=== PATIENT | female | born 1985 | race Caucasian/White ===

== ENCOUNTER 2020-07-15 18:24 | Emergency (ER) | payer MEDICAID, SELFPAY ==
[2020-07-15 20:00] VITALS: BP 100/67; PULSE 86; RESP 16; TEMP 36.7; O2SAT 99
--- NOTE | 2020-07-15 20:15 | ED.GENADULT ---
HPI - General Adult General Chief complaint: Neck Pain/Injury <MARNIE Pace Last Filed: 07/16/20 01:31> Stated complaint: neck pain <MARNIE Pace Last Filed: 07/16/20 01:31> Time Seen by Provider: 07/15/20 20:10 <MARNIE Pace Last Filed: 07/16/20 01:31> History of Present Illness HPI narrative: patient presents to the ED for right-sided neck pain and stiffness. Patient states she woke up like this. Patient denies any head, neck trauma, fever, chills, photophobia, nausea, vomiting, headache, or blurry vision. <MARNIE Pace Last Filed: 07/16/20 01:31> Related Data Home medications: Previous Rx's Medication Instructions Recorded cyclobenzaprine 10 mg PO TID PRN #15 tab 07/15/20 naproxen 500 mg PO BID PRN #30 tab 07/15/20 <MARNIE Pace Last Filed: 07/16/20 01:31> Allergies/adverse reactions: Allergies Allergy/AdvReac Type Severity Reaction Status Date / Time No Known Allergies Allergy Verified 07/15/20 20:21 <MARNIE Pace Last Filed: 07/16/20 01:31> Review of Systems Review of Systems: Yes all other systems are reviewed and are negative <MARNIE Pace Last Filed: 07/16/20 01:31> Constitutional: Constitutional: Reports no additional constitutional complaints, Denies body ache(s), Denies chills, Denies excessive sweating, Denies fatigue, Denies fever(s), Denies frequent falls, Denies headache(s), Denies malaise and Denies night sweats <MARNIE Pace Last Filed: 07/16/20 01:31> ENT: Denies halitosis, Denies change in voice, Denies headache(s), Denies neck mass, Reports neck pain, Denies sinus pressure, Denies sore throat and Denies throat swelling <MARNIE Pace Last Filed: 07/16/20 01:31> Cardiovascular: Cardiovascular: Reports as per HPI, Denies chest pain, Denies chest pain at rest, Denies chest pain with activity, Denies diaphoresis, Denies lightheadedness and Denies radiating jaw, neck or arm pain <MARNIE Pace Last Filed: 07/16/20:> Respiratory: Respiratory: Reports no additional respiratory complaints, Reports no additional respiratory complaints, Denies change in phlegm color, Denies chest congestion, Denies cough, Denies hemoptysis, Denies excessive phlegm production, Denies pain on inspiration and Denies pain with cough <MARNIE Pace Last Filed: 07/16/20:31> Gastrointestinal: Gastrointestinal: Denies abdominal pain, Denies belching, Denies melena and Denies hematochezia <MARNIE Pace Filed: 07/16/20:> Genitourinary: Genitourinary: Denies change in libido <MARNIE Pace Filed: 07/16/20:> Musculoskeletal: Musculoskeletal: Denies myalgias, Denies atrophy and Reports neck pain <MARNIE Pace Filed: 07/16/20:> Neurologic: Reports system reviewed and no additional complaints, except as documented, Denies behavioral changes, Denies frequent falls and Denies headache(s) <MARNIE Pace Filed: 07/16/20:> Psychiatric: Psychiatric: Reports no additional psychiatric complaints, Reports as per HPI, Denies anxiety, Denies behavioral changes, Denies change in appetite and Denies change in libido <MARNIE Pace Filed: 07/16/20:31> Endocrine: Endocrine: Denies change in libido, Denies excessive sweating and Denies fatigue <MARNIE Pace Last Filed: 07/16/20:> Allergic/Immunologic: Allergic/Immunologic: Denies throat swelling <MARNIE Pace Filed: 07/16/20:> [facility], [facility] Social History Social History: Social History Smoking Status: Never smoker Use of substances other than those prescribed or required for medical reasons: No Advance Directives: No Advance Directives Information Provided: Yes <MARNIE Pcae Filed: 07/16/20:> Physical Exam Vital Signs and I&O and Narrative: Vital Signs and I&O: Vital Signs Temp 98.0 F 07/15/20 20:00 Pulse 86 07/15/20 20:00 Resp 16 07/15/20 20:00 BP 100/67 07/15/20 20:00 Pulse Ox 99 07/15/20 20:00 <MARNIE Pace Last Filed: 07/16/20 01:31> Vital Signs and I&O: Vital Signs Temp 98.0 F 07/15/20 20:00 Pulse 86 07/15/20 20:00 Resp 16 07/15/20 20:00 BP 100/67 07/15/20 20:00 Pulse Ox 99 07/15/20 20:00 <Joon Lomax DO - Last Filed: 07/16/20 02:28> Const: General: cooperative, healthy appearing, comfortable and no acute distress <MARNIE Pace Last Filed: 07/16/20 01:31> Orientation/consciousness: patient oriented x3 <MARNIE Pace Last Filed: 07/16/20 01:31> HENMT: Head: Yes normal to inspection and Yes No palpable skull fracture present <MARNIE Pace Last Filed: 07/16/20 01:31> Ears: hearing grossly normal bilaterally, TM's normal bilaterally and TM normal on the right <MARNIE Pace Last Filed: 07/16/20 01:31> General nose exam: Normal external nose present and Normal nares present <MARNIE Pace Last Filed: 07/16/20 01:31> Face and sinus: Yes normal facial exam <MARNIE Pace Last Filed: 07/16/20 01:31> Throat: Yes posterior oropharynx normal, Yes tonsils normal, No peritonsillar mass and No posterior oropharynx abnormal <MARNIE Pace Last Filed: 07/16/20:31> Eyes: General: appearance normal, both eyes and all related structures <MARNIE Pace Last Filed: 07/16/20 01:31> Neck: Neck: Yes no lymphadenopathy, Yes no meningeal signs, No trachea midline, Yes supple, No anterior neck swelling, No lymphadenopathy, No positive Brudzinski's sign, No positive Kernig's sign, Yes torticollis, Yes no JVD and No submandibular swelling <MARNIE Pace Filed: 07/16/20:31> Thyroid: Thyroid normal <MARNIE Pace Filed: 07/16/20:> Chest: Chest palpation & inspection: normal inspection of the chest <MARNIE Pace Filed: 07/16/20:> Resp: Effort & Inspection: normal respiratory effort, able to speak in complete sentences, normal respiratory pattern, no audible wheezes, respiratory effort not decreased, no grunting, not labored, no nasal flaring and no paradoxical thoraco-abdom movements <MARNIE Pace Billy Last Filed: 07/16/20:> Auscultation: clear to auscultation bilaterally <MARNIE Pace Billy Filed: 07/16/20:> Cardio: Jugular venous distension: no JVD <MARNIE Pace Billy Filed: 07/16/20:> Rate: regular rate <MARNIE Pace Billy Filed: 07/16/20:31> Heart sounds: S1 normal heart sound present and S2 normal heart sound present <MARNIE Pace Billy Filed: 07/16/20:> Bruits: no carotid bruits <MARNIE Pace Billy Filed: 07/16/20:> GI: Inspection: Yes normal to inspection, No abdominal wall ecchymosis, No Abdominal wall edema and No distended <MARNIE Pace Billy Filed: 07/16/20:> Palpation (GI): nontender <MARNIE Pace Billy Filed: 07/16/20:31> Percussion: Yes normal to percussion <MARNIE Pace Billy Filed: 07/16/20:> : General: Yes no CVA tenderness <MARNIE Pace Filed: 07/16/20:> Back/Spine/Pelvis: Back: no CVA tenderness, No erythema, No warmth, No sacral edema, No ecchymosis and No back tenderness <MARNIE Pace Last Filed: 07/16/20:31> Skin: General skin exam: no rashes or lesions noted <MARNIE Pace Last Filed: 07/16/20:> Neuro: General: patient oriented x3, no meningeal signs and CN's II-XI intact bilaterally <MARNIE Pace Last Filed: 07/16/20:31> Extrem: General: Yes normal to inspection and Yes full ROM <MARNIE Pace Last Filed: 07/16/20:> Psych: Appearance: grossly normal and well kempt <MARNIE Pace Last Filed: 07/16/20:31> Mental Status: mental status grossly normal <MARNIE Pace Filed: 07/16/20:> Course Course Course Narrative: History physical exam indicate muscle spasm/ torcillosis. History physical exam does not indicate meningitis or neck fracture. <MARNIE Pace Last Filed: 07/16/20> Medical Decision Making MDM Narrative Medical decision making narrative: History and physical exam indicates torcillosis. History physical exam does not indicate meningitis or indication for cervical fracture. Patient did not have any trauma. <MARNIE Pace Last Filed: 07/16/20> Discharge Plan Discharge Clinical Impression: Torticollis <MARNIE Pace Last Filed: 07/16/20:31> Patient Disposition: Home, Self-Care <MARNIE Pace Last Filed: 07/16/20:31> Instructions: Spasmodic Torticollis (ED) <MARNIE Pace Last Filed: 07/16/20:31> Additional Instructions: Return to the ED immediately for any fever, chills, worsening neck pain, headache, photophobia, throat pain, cervical lymph adenopathy, chest pain, shortness of breath, or any other concerning symptoms. Please follow-up with your PCP as soon as possible <MARNIE Pace Last Filed: 07/16/20:31> Prescriptions: New naproxen 500 mg tablet 500 mg PO BID PRN (Reason: pain) Qty: 30 RF: 0 cyclobenzaprine 10 mg tablet 10 mg PO TID PRN (Reason: muscle spasm) Qty: 15 RF: 0 <MARNIE Pace - Last Filed: 07/16/20 01:31> Interventions: ED Discharge Assessment Last Done: 07/15/20 22:00 <MARNIE Pace - Last Filed: 07/16/20 01:31> Discharge Date/Time: 07/15/20 22:01 <MARNIE Pace - Last Filed: 07/16/20 01:31> Print Language: Irish <MARNIE Pace - Last Filed: 07/16/20 01:31>
[2020-07-15] MEDS: Ketorolac Tromethamine 30 MG/ML VIAL IM (20:49)
[2020-07-15] MEDS: Cyclobenzaprine HCl 10 MG TABLET PO (20:49)
== END 2020-07-15 22:01 | disposition home or self-care (01) ==
PROVIDERS: Emergency Provider Emergency Medicine
DX: M43.6 Torticollis (principal)
CPT/HCPCS: 96372; 99284

== ENCOUNTER 2020-10-27 18:28 | Emergency (ER) | payer MEDICAID, SELFPAY ==
[2020-10-27 20:02] VITALS: BP 94/52; PULSE 96; RESP 16; TEMP 36.9; O2SAT 98
--- NOTE | 2020-10-27 21:03 | XR_ITS ---
EXAMINATION: XR KNEE, RIGHT CLINICAL INFORMATION: Pain COMPARISON: None TECHNIQUE: Four views of the right knee. FINDINGS: Bones and soft tissues are normal. No fracture or joint effusion. Alignment is anatomic. Joint spaces are well maintained. No abnormal soft tissue calcification. XR/XR knee RT 4V IMPRESSION: No acute osseous changes. Normal knee radiograph.
--- NOTE | 2020-10-27 21:03 | US_ITS ---
EXAMINATION: US VENOUS ULTRASOUND WITH DOPPLER LOWER EXTREMITY, RIGHT CLINICAL INFORMATION: Pain COMPARISON: None TECHNIQUE: Ultrasound of the deep veins is performed from the hip to the calf with compression sonography and color and pulse Doppler assessment. Spectral analysis with color-flow imaging is performed. FINDINGS: There is normal venous compression and respiratory variation and augmented flow. The visualized common femoral vein, superficial femoral vein, profunda femoral vein, popliteal vein, and the trifurcation region shows no evidence of deep venous thrombosis. There is no significant popliteal fossa cyst. If the patient's symptoms persist, followup ultrasound in 5 days 7 days might be of value to exclude proximal propagation from a non-visualized calf vein. US/US venous duplex LE RT IMPRESSION: No DVT demonstrated in the right lower extremity.
[2020-10-27 21:05] VITALS: BP 103/59; PULSE 80; RESP 16; TEMP 36.8; O2SAT 99; BMI 28.3
--- NOTE | 2020-10-27 21:28 | ED.LOWEXIN ---
HPI - Extremity Injury (Lower) General Chief Complaint: Extremity Injury, Lower Stated Complaint: RIGHT KNEE PAIN Time Seen by Provider: 10/27/20 20:37 Source: patient Mode of arrival: ambulatory Limitations: no limitations History of Present Illness HPI Narrative: Patient presents to ED for right knee pain. Patient states she woke up with right knee pain. Patient denies any trauma. Patient denies any redness of the knee, swelling, or dislocation. Related Data Previous Rx's Medication Instructions Recorded cyclobenzaprine 10 mg PO TID PRN #15 tab 07/15/20 naproxen 500 mg PO BID PRN #30 tab 07/15/20 Allergies Allergy/AdvReac Type Severity Reaction Status Date / Time No Known Allergies Allergy Verified 07/15/20 20:21 Review of Systems Constitutional: Constitutional: Reports as per HPI and Reports no additional constitutional complaints Eyes: Eyes: Reports as per HPI and Reports no additional eye complaints ENT: Reports system reviewed and no additional complaints, except as documented and Reports as per HPI Cardiovascular: Cardiovascular: Reports as per HPI and Reports no additional cardiovascular complaints Respiratory: Respiratory: Reports as per HPI and Reports no additional respiratory complaints Gastrointestinal: Gastrointestinal: Reports as per HPI and Reports no additional gastrointestinal complaints Genitourinary: Genitourinary: Reports no additional female genitourinary complaints and Reports as per HPI Musculoskeletal: Musculoskeletal: Reports no additional musculoskeletal complaints and Reports as per HPI Comments: Right knee pain Neurologic: Reports system reviewed and no additional complaints, except as documented and Reports as per HPI Psychiatric: Psychiatric: Reports no additional psychiatric complaints and Reports as per HPI [facility] Past Medical History Medical History (Updated 10/28/20 @ 00:00 by Background Daswathi) No known health problems Social History Social History Alcohol intake: never Smoking Status: Never smoker Smoked in Last 30 Days: No Use of substances other than those prescribed or required for medical reasons: No Advance Directives: No Advance Directives Information Provided: Yes Physical Exam Vital Signs: Vital Signs: Last Vital Signs Temp 98.3 F 10/27/20 21:05 Pulse 80 10/27/20 21:05 Resp 16 10/27/20 21:05 BP 103/59 L 10/27/20 21:05 Pulse Ox 99 10/27/20 21:05 Body Mass Index 28.3 Const: General: cooperative, healthy appearing, comfortable, no acute distress, well developed, alert and awake Orientation/consciousness: patient oriented x3 HENMT: Head: Yes normal to inspection and Yes No palpable skull fracture present Eyes: General: appearance normal, both eyes and all related structures Neck: Neck: Yes normal visual inspection, Yes full ROM, Yes no lymphadenopathy, Yes no meningeal signs, Yes trachea midline, Yes supple and No tender Chest: Chest palpation & inspection: normal inspection of the chest and normal palpation of entire chest wall Resp: Effort & Inspection: normal respiratory effort and able to speak in complete sentences Auscultation: clear to auscultation bilaterally Cardio: Jugular venous distension: no JVD Heart sounds: S1 normal heart sound present and S2 normal heart sound present GI: Inspection: Yes normal to inspection Palpation (GI): Soft to palpation, not firm, nontender, no guarding and not rigid : General: No CVA tenderness and Yes no CVA tenderness Back/Spine/Pelvis: Back: no CVA tenderness, No CVA tenderness and No back tenderness Skin: General skin exam: no rashes or lesions noted and elasticity normal Neuro: General: patient oriented x3, no meningeal signs and CN's II-XI intact bilaterally Cranial nerves: Yes CN's II-XII intact bilaterally Extrem: Other: Positive for right knee tenderness on palpation. Negative right knee redness or swelling. Negative for anterior tib-fib tenderness on palpation. Positive for right calf pain on tenderness on palpation. pulses of right lower extremity is intact. Left lower extremity is normal Psych: Appearance: grossly normal, well kempt and not disheveled Course Course Course Narrative: Patient will have right knee right knee, right leg x-ray, and ultrasound of leg demonstrated no DVT. Reevaluation(s) Reevaluation #1: Patient right knee, right leg, and ultrasound came back negative for fractures or DVT. Time: 23:35 MDM - Extremity Injury (Lower) MDM Narrative Medical decision making narrative: Right knee/leg pain Discharge Plan Discharge Clinical Impression: Acute knee pain, Acute leg pain Patient Disposition: Home, Self-Care Instructions: Knee Pain (ED), Leg Pain (ED) Additional Instructions: Return to the ED immediately for any chest pain, shortness of breath, redness, swelling of knee, swelling of leg, calf pain, fever, chills, bluish discoloration of toes, coolness of leg, or any other concerning symptoms. Prescriptions: No Action naproxen 500 mg tablet 500 mg PO BID PRN (Reason: pain) Qty: 30 RF: 0 cyclobenzaprine 10 mg tablet 10 mg PO TID PRN (Reason: muscle spasm) Qty: 15 RF: 0 Interventions: ED Discharge Assessment Last Done: 10/27/20 23:55 Discharge Date/Time: 10/27/20 23:57 Print Language: [place] Verdean
--- NOTE | 2020-10-27 21:42 | XR_ITS ---
EXAMINATION: XR TIBIA AND FIBULA, RIGHT CLINICAL INFORMATION: Pain COMPARISON: None TECHNIQUE: AP and lateral views of the right tibia and fibula were obtained. FINDINGS: The bones and soft tissues are normal. No fracture. No osseous lesions. XR/XR tibia fibula RT 2V IMPRESSION: No fracture or dislocation.
--- NOTE | 2020-10-27 22:17 | PC.NURSE ---
pt taken to us unable to pass pain medication.
[2020-10-27] MEDS: Ketorolac Tromethamine 30 MG/ML VIAL IM (22:23)
== END 2020-10-27 23:57 | disposition home or self-care (01) ==
PROVIDERS: Emergency Provider Emergency Medicine
DX: M25.561 Pain in right knee (principal); M79.604 Pain in right leg; R60.0 Localized edema; Z79.899 Other long term (current) drug therapy
CPT/HCPCS: 73564; 73590; 93971; 96372; 99284; J1885

== ENCOUNTER 2021-01-17 10:00 | Outpatient (REF) | payer MEDICAID, SELFPAY | END 2021-01-17 10:01 | disposition home or self-care (01) | LOC: HO.LAB 10:00 | PROVIDERS: Visit Provider Internal Medicine | DX: Z20.822 Contact with and (suspected) exposure to COVID-19 (principal) | CPT/HCPCS: C9803; U0003; U0005 ==

== ENCOUNTER 2021-03-01 14:36 | Emergency (ER) | payer MEDICAID, SELFPAY ==
--- NOTE | ~2021-03-01 | CT_ITS ---
EXAMINATION: CT OF THE HEAD AND CERVICAL SPINE WITHOUT CONTRAST CLINICAL INFORMATION: Fall COMPARISON: None. TECHNIQUE: Contiguous axial imaging was performed from the vertex to the thoracic inlet, through the head and cervical spine, without intravenous administration of contrast. Coronal and sagittal reformatted images through the cervical spine were obtained on the technologists workstation. Total exam dose-length product: 376+620 mGy-cm This CT examination was performed using dose optimization techniques as appropriate, variously including the following: *Automated exposure control *Adjustment of mA and/or kV according to patient size (this includes techniques or standardized protocols for targeted exams where dose is matched to indication/reason for exam; i.e. extremities or head) *Use of iterative reconstruction technique FINDINGS: Head: No acute intracranial hemorrhage. No extra-axial fluid collection. Rojas-white matter differentiation is preserved without evidence of acute large vessel territory ischemia. Symmetric, concordant ventricles and sulci; no hydrocephalus. No mass effect or midline shift. There is no abnormal attenuation within the brain parenchyma. The osseous structures and soft tissues are normal. No acute sinusitis. Cervical spine: Normal pre-vertebral soft tissues. No fracture seen. There is reversal of the normal cervical lordosis but no focal malalignment seen; this could be positional or due to muscle spasm. Disk heights are maintained. Thyroid homogeneous with no nodules seen. Lung apices are clear. No cervical lymphadenopathy, mass, or fluid collection. CT/CT cervical spine wo con IMPRESSION: No acute intracranial pathology. No acute osseous abnormality of the cervical spine.
--- NOTE | ~2021-03-01 | CT_ITS ---
EXAMINATION: CT OF THE HEAD AND CERVICAL SPINE WITHOUT CONTRAST CLINICAL INFORMATION: Fall COMPARISON: None. TECHNIQUE: Contiguous axial imaging was performed from the vertex to the thoracic inlet, through the head and cervical spine, without intravenous administration of contrast. Coronal and sagittal reformatted images through the cervical spine were obtained on the technologists workstation. Total exam dose-length product: 376+620 mGy-cm This CT examination was performed using dose optimization techniques as appropriate, variously including the following: *Automated exposure control *Adjustment of mA and/or kV according to patient size (this includes techniques or standardized protocols for targeted exams where dose is matched to indication/reason for exam; i.e. extremities or head) *Use of iterative reconstruction technique FINDINGS: Head: No acute intracranial hemorrhage. No extra-axial fluid collection. Rojas-white matter differentiation is preserved without evidence of acute large vessel territory ischemia. Symmetric, concordant ventricles and sulci; no hydrocephalus. No mass effect or midline shift. There is no abnormal attenuation within the brain parenchyma. The osseous structures and soft tissues are normal. No acute sinusitis. Cervical spine: Normal pre-vertebral soft tissues. No fracture seen. There is reversal of the normal cervical lordosis but no focal malalignment seen; this could be positional or due to muscle spasm. Disk heights are maintained. Thyroid homogeneous with no nodules seen. Lung apices are clear. No cervical lymphadenopathy, mass, or fluid collection. CT/CT head/brain wo con IMPRESSION: No acute intracranial pathology. No acute osseous abnormality of the cervical spine.
[2021-03-01 14:59] VITALS: BP 102/65; PULSE 85; RESP 18; TEMP 36.1; O2SAT 97; BMI 21.9
--- NOTE | 2021-03-01 17:09 | ED.FALL ---
HPI - Fall General Chief Complaint: Fall Stated Complaint: fall - neck, head pain Time Seen by Provider: 03/01/21 17:03 Source: patient Mode of arrival: ambulatory Limitations: no limitations History of Present Illness HPI Narrative: 35 y/o female presents to the ER with right sided neck pain, headache and vomiting after she slipped and fell in the shower this morning and hit the back of her head. She states she lost consciousness but does not recall for how long. She did not have any pain or headache initially. As the day went on she had increased neck and upper shoulder pain as well as nausea with 1 episode of vomiting. No chest pain, SOB, vision changes, confusion, lethargy. No other injuries. She is not on anticoagulation. MD complaint: fall Onset (ago): hour(s) (10) Fall from: standing Fall witnessed: no Place fall occurred: home Loss of consciousness: yes Prolonged down time: no Symptoms prior to fall: none Context: tripped/slipped Location of injury: head and neck Related Data Previous Rx's Medication Instructions Recorded cyclobenzaprine 10 mg PO TID PRN #15 tab 07/15/20 naproxen 500 mg PO BID PRN #30 tab 07/15/20 Allergies Allergy/AdvReac Type Severity Reaction Status Date / Time No Known Allergies Allergy Verified 07/15/20 20:21 Review of Systems Review of Systems: Constitutional: No Fever, No Chills Eyes: No Eye Pain, No Swelling, No Redness Cardiovascular: No Chest Pain, No SOB Gastrointestinal: +Nausea, + Vomiting, No Diarrhea, No abdominal Pain Genitourinary: No Dysuria, No Urinary Frequency, No Hematuria Musculoskeletal: No joint pain, No Myalgias Skin: No Skin Lesions, No rash Neuro: No Weakness, No Numbness, No Dizziness, + Headache Psych: + Anxiety/Panic, No Depression Heme/Lymph: No Bruising, No Lymphadenopathy PMFSH Past Medical History Attestation statement: The following information was validated with the patient. Medical History (Updated 03/01/21 @ 20:36 by MARNIE Miramontes) No known health problems Social History Social History Alcohol intake: never Smoking Status: Never smoker Advance Directives: No Advance Directives Information Provided: No Physical Exam Vital Signs: Vital Signs: Last Vital Signs Temp 97 F 03/01/21 14:59 Pulse 85 03/01/21 14:59 Resp 18 03/01/21 14:59 BP 102/65 03/01/21 14:59 Pulse Ox 97 03/01/21 14:59 Body Mass Index 21.9 Appearance: Alert. Oriented X3. No acute distress. Head: normocephalic, atraumatic, no palpable skull fracture Eyes: Pupils equal, round and reactive to light. EOMI, no nystagmus. Neck: no cervical spinal tenderness, soft tissue tenderness along right posterior and lateral neck, pain worse with rotation to the left. ENT: Pharynx normal. No dental trauma. Neck: Normal inspection. Neck supple. CVS: Normal heart rate and rhythm. Pulses normal. Respiratory: No respiratory distress. Breath sounds normal. Abdomen: Soft and nontender. +BS x4 Skin: Skin warm and dry. Normal skin color. Normal skin turgor. No rashes. Extremities: No lower extremity edema. Atraumatic Neuro: Oriented X 3. No motor deficit. No sensory deficit. Course Course Course Narrative: 35 y/o female presenting with slip and fall in the shower with head strike and LOC. No obvious injuries on examination. Patient is playing on her cell phone. Nausea is improved. She has been in the waiting room for almost 4 hours without any vomiting. She appears well. Will proceed with CT head/neck. Reevaluation(s) Reevaluation #1: CT scans are negative. Patient remains AAO X3, non-focal in no distress. She has been observed in the ER for 6 hours. No concerning signs or symptoms exhibited. Counseled on concussions - stable for discharge. MDM - Fall Lab Data Labs: Lab Results 03/01/21 Range/Units 19:10 Urine Test NEGATIVE (NEGATIVE) Critical Care Time Critical Care Time Critical Care Time: No Discharge Plan Discharge Clinical Impression: Concussion with loss of consciousness Qualifiers: Encounter type: initial encounter Qualified Code(s): S06.0X9A - Concussion with loss of consciousness of unspecified duration, initial encounter Patient Disposition: Home, Self-Care Instructions: Concussion (ED) Additional Instructions: Your CT scans were normal. Recommend REST. Avoid screen time. Allow your brain to rest. Take Motrin and/or Tylenol as needed for headache and bodyaches. Follow up with your doctor next week. If you develop persistent vomiting, confusion, or any other concerning symptom come back to the ER for further evaluation. Wendy tomograf?as computarizadas fueron normales. Recomendar DESCANSO. Evite el tiempo frente a la pantalla. Ena que tu cerebro descanse. [place] Motrin y / o Tylenol seg?n sea necesario para el dolor de cris y los omkar corporales. Nikolas un seguimiento con reynolds m?dico la pr?xima semana. Si presenta v?mitos persistentes, confusi?n o cualquier otro s?ntoma preocupante, regrese a la mary de emergencias para dodie evaluaci?n adicional. Prescriptions: No Action naproxen 500 mg tablet 500 mg PO BID PRN (Reason: pain) Qty: 30 RF: 0 cyclobenzaprine 10 mg tablet 10 mg PO TID PRN (Reason: muscle spasm) Qty: 15 RF: 0
[2021-03-01 19:30] LABS: UPreg QC Valid YES; Urine Pregnancy NEGATIVE (NEGATIVE)
[2021-03-01] MEDS: Ibuprofen 600 MG TABLET PO (21:26)
== END 2021-03-01 21:36 | disposition home or self-care (01) ==
PROVIDERS: Emergency Provider Emergency Medicine
DX: S06.0X9A Concussion with loss of consciousness of unspecified duration, initial encounter (principal); W18.2XXA Fall in (into) shower or empty bathtub, initial encounter; Y93.E1 Activity, personal bathing and showering; Y92.012 Bathroom of single-family (private) house as the place of occurrence of the external cause; Y99.9 Unspecified external cause status
CPT/HCPCS: 70450; 72125; 81025; 99284

== ENCOUNTER 2021-03-02 11:15 | Emergency (ER) | payer MEDICAID, SELFPAY ==
[2021-03-02 11:18] VITALS: BP 123/70; PULSE 90; O2SAT 100
[2021-03-02 13:41] VITALS: BP 103/86; PULSE 72; RESP 18; TEMP 36.6; O2SAT 98; BMI 21.9
--- NOTE | 2021-03-02 13:44 | ECG_ITS ---
Test Reason : DIZZINESS Blood Pressure : / mmHG Vent. Rate : 069 BPM Atrial Rate : 069 BPM P-R Int : 108 ms QRS Dur : 072 ms QT Int : 362 ms P-R-T Axes : 064 031 009 degrees QTc Int : 387 ms Sinus rhythm with short MD Possible Left atrial enlargement Borderline EKG No previous ECGs available Referred By: Martina Hernandez Electronically Signed By:NAVID VOSS
--- NOTE | 2021-03-02 13:44 | ED_ITS ---
HPI - General Adult General Chief complaint: Dizziness <MARNIE Miramontes - Last Filed: 03/02/21 13:48> Stated complaint: FALL YESTERDAY W/ HEAD PAIN <MARNIE Miramontes - Last Filed: 03/02/21 13:48> Time Seen by Provider: 03/02/21 13:44 <MARNIE Miramontes - Last Filed: 03/02/21 13:48> Source: patient, old records reviewed and asl interpreter <Niesha Chacon DO - Last Filed: 03/02/21 17:32> Mode of arrival: ambulatory <Niesha Chacon DO - Last Filed: 03/02/21 17:32> Limitations: no limitations <Niesha Chacon DO - Last Filed: 03/02/21 17:32> History of Present Illness HPI narrative: 35 yo female seen yesterday for a head injury had a negative CT h ead/cspine noted she went home and couldn't sleep due to having a headache and cannot afford tylenol or motrin, she got up today and felt dizzy she fell to the ground, small bump to the head early this AM, no vomiting, on her phone, came back as she cannot treat her pain, triage noted CP but the patient denies chest pain to me and injury (my interview was done with asl interpreter) <Niesha Chacon DO - Last Filed: 03/02/21 17:32> MD complaint: head injury, dizziness <Niesha Chacon DO - Last Filed: 03/02/21 17:32> Onset (ago): day(s) (yesterday but additional episode this AM upon waking) <Niesha Chacon DO - Last Filed: 03/02/21 17:32> Location: head <Niesha Chacon DO - Last Filed: 03/02/21 17:32> Radiation: non-radiation <Niesha Chacon DO - Last Filed: 03/02/21 17:32> Severity: mild <Niesha Chacon DO - Last Filed: 03/02/21 17:32> Quality: aching <Niesha Chacon DO - Last Filed: 03/02/21 17:32> Pain Consistency: constant <Niesha Chacon DO - Last Filed: 03/02/21 17:32> Relieving factors: none <Niesha Chacon DO - Last Filed: 03/02/21 17:32> Exacerbating factors: none <Niesha Chacon DO - Last Filed: 03/02/21 17:32> Associated symptoms: headaches and nausea/vomiting <Niesha Chacon DO - Last Filed: 03/02/21 17:32> Treatments prior to arrival: none <Niesha Chacon DO - Last Filed: 03/02/21 17:32> Related Data Home medications: Previous Rx's Medication Instructions Recorded cyclobenzaprine 10 mg PO TID PRN #15 tab 07/15/20 naproxen 500 mg PO BID PRN #30 tab 07/15/20 cigiusolnp-tfoxaenxkzqqv-knyt 1 tab PO Q6H PRN #20 tab 03/02/21 cyclobenzaprine 10 mg PO TID PRN #14 tab 03/02/21 ibuprofen 600 mg PO Q6H PRN #30 tab 03/02/21 ondansetron 4 mg PO Q8H PRN #20 tab 03/02/21 <MARNIE Miramontes Last Filed: 03/02/21 13:48> Allergies/adverse reactions: Allergies Allergy/AdvReac Type Severity Reaction Status Date / Time No Known Allergies Allergy Verified 03/02/21 13:40 <MARNIE Miramontes Last Filed: 03/02/21 13:48> Review of Systems Review of Systems: Constitutional : No Fever, No Chills, No Fatigue ENT/Mouth : No sore throat, No Rhinorrhea Eyes: No Eye Pain, No Swelling, No Redness Cardiovascular : No Chest Pain, No SOB, No Dyspnea on Exertion Respiratory : No Cough, No Sputum Gastrointestinal : No Nausea, No Vomiting, No Diarrhea, No abdominal Pain Genitourinary : No Dysuria, No Urinary Frequency, No Hematuria, Musculoskeletal : No joint pain, No Myalgias, No Joint Swelling Skin : No Skin Lesions, No rash Neuro : No Weakness, No Numbness, No Dizziness, positive Headache Psych : No Anxiety/Panic, No Depression Heme/Lymph: No Bruising, No Bleeding,No Lymphadenopathy Endocrine : No Polyuria, No Polydipsia All other systems reviewed and are negative <DO Billy Way Last Filed: 03/02/21 17:32> [facility] Past Medical History Attestation statement: The following information was validated with the patient. <Niesha Chacon DO - Last Filed: 03/02/21 17:32> Medical History: Medical History No known health problems <MARNIE Miramontes - Last Filed: 03/02/21 13:48> Social History Social History: Social History Alcohol intake: never Smoking Status: Never smoker Advance Directives: No Advance Directives Information Provided: Yes Patient : No <MARNIE Miramontes - Last Filed: 03/02/21 13:48> Physical Exam Vital Signs: Vital Signs: Last Vital Signs Temp 97.9 F 03/02/21 13:41 Pulse 82 03/02/21 13:45 Resp 18 03/02/21 13:41 BP 105/78 03/02/21 13:45 Pulse Ox 98 03/02/21 13:41 Body Mass Index 21.9 <MARNIE Miramontes - Last Filed: 03/02/21 13:48> Vital Signs: Last Vital Signs Temp 97.9 F 03/02/21 13:41 Pulse 82 03/02/21 13:45 Resp 18 03/02/21 13:41 BP 105/78 03/02/21 13:45 Pulse Ox 98 03/02/21 13:41 Body Mass Index 21.9 <Niesha Chacon DO - Last Filed: 03/02/21 17:32> Appearance: Alert. Oriented X3. No acute distress. Eyes: Pupils equal, round and reactive to light. ENT: Pharynx normal. no trauma noted Neck: Normal inspection. Neck supple. CVS: Normal heart rate and rhythm. Pulses normal. Respiratory: No respiratory distress. Breath sounds normal. Abdomen: Soft and non-tender. Skin: Skin warm and dry. Normal skin color. Normal skin turgor. Extremities: No lower extremity edema. No calf ttp Neuro: Oriented X 3. No motor deficit. No sensory deficit. steady gait, GCS 15, playing on her phone in the room smiling <Niesha Chacon DO - Last Filed: 03/02/21 17:32> Course Course Course Narrative: Rapid medical examination: 35 y/o female presenting with dizziness, 10/10 headache. Seen here yesterday for slip and fall in the shower with LOC. CT head/neck negative, observed for 6 hours then d/c home. Today dizzy when walking down stairs and fell again, hit her head again with recurrent LOC. +vomiting this morning. +chest pain now. Will get orthostatic VS, EKG, lab workup and ?repeat CT scan. Plan per provider in the Main ED. <MARNIE Miramontes - Last Filed: 03/02/21 13:48> Medical Decision Making MDM Narrative Medical decision making narrative: 35 yo female here yesterday following head injury yesterday did not complete brain rest had negative head CT yesterday c/o headache and feeling dizzy today noted that she became dizzy today and fell this AM no obvious trauma, no AC therapy, GCS 15 no vomiting, on her phone smiling in no distress doubt ICH suspect concussion without brain rest, went over the importance to get off her phone as well as no ETOH, no exercise, anticipate DC home with support gama medications <Niesha Chacon DO - Last Filed: 03/02/21 17:32> Lab Data Result diagrams: : 03/02/21 15:14 03/02/21 15:14 <MARNIE Miramontes - Last Filed: 03/02/21 13:48> Labs: Lab Results 03/02/21 03/02/21 03/02/21 Range/Units 15:14 15:14 15:14 WBC 7.7 (4.8-10.8) X10*3/uL RBC 4.41 (4.20-5.50) X10*6/uL Hgb 12.9 (12.0-16.0) g/dl Hct 39.9 (37-47) % MCV 90.5 (80-98) fL MCH 29.3 (27.0-33.0) pg MCHC 32.3 (31.0-35.0) g/dl RDW 12.2 (11.0-16.0) % Plt Count 241 (160-400) X10*3/uL MPV 11.7 (9.4-12.3) fL Immature Gran % (Auto) 0.3 (0.0-0.4) % Neut % (Auto) 63.5 (45-73) % Lymph % (Auto) 28.1 (20-40) % [place] % (Auto) 6.1 (2-11) % Eos % (Auto) 1.6 (0-4) % Baso % (Auto) 0.4 (0-2) % Lymph # (Auto) 2.2 (1.2-4.9) X10*3/uL [place] # (Auto) 0.5 (0.1-1.2) X10*3/uL Eos # (Auto) 0.1 (0.0-0.4) X10*3/uL Baso # (Auto) 0.0 (0.0-0.2) X10*3/uL Abs Immat Gran (auto) 0.02 (0.00-0.03) X10*3/uL Absolute Neuts (auto) 4.9 (2.0-8.3) X10*3/uL Absolute Nucleated RBC 0.000 (0.0-0.012) X10*3/uL Nucleated RBC % (auto) 0.0 (0.0-0.2) /100WBC Hold Blue Top SEE NOTE Sodium 138 (135-145) mmol/L Potassium 4.4 (3.3-5.1) mmol/L Chloride 103 (96-108) mmol/L Carbon Dioxide 26 (22-29) mmol/L Anion Gap 13 (12-20) BUN 13 (9-16) mg/dL Creatinine 0.84 (0.5-1.4) mg/dL Estim Creat Clear Calc 90.0 Estimated GFR > 60 POC Glucose (60-115) mg/dL Random Glucose 85 (60-115) mg/dL Calcium 9.4 (8.4-10.2) mg/dL Magnesium 2.4 (1.6-2.6) mg/dL 03/02/21 Range/Units 15:31 WBC (4.8-10.8) X10*3/uL RBC (4.20-5.50) X10*6/uL Hgb (12.0-16.0) g/dl Hct (37-47) % MCV (80-98) fL MCH (27.0-33.0) pg MCHC (31.0-35.0) g/dl RDW (11.0-16.0) % Plt Count (160-400) X10*3/uL MPV (9.4-12.3) fL Immature Gran % (Auto) (0.0-0.4) % Neut % (Auto) (45-73) % Lymph % (Auto) (20-40) % [place] % (Auto) (2-11) % Eos % (Auto) (0-4) % Baso % (Auto) (0-2) % Lymph # (Auto) (1.2-4.9) X10*3/uL [place] # (Auto) (0.1-1.2) X10*3/uL Eos # (Auto) (0.0-0.4) X10*3/uL Baso # (Auto) (0.0-0.2) X10*3/uL Abs Immat Gran (auto) (0.00-0.03) X10*3/uL Absolute Neuts (auto) (2.0-8.3) X10*3/uL Absolute Nucleated RBC (0.0-0.012) X10*3/uL Nucleated RBC % (auto) (0.0-0.2) /100WBC Hold Blue Top Sodium (135-145) mmol/L Potassium (3.3-5.1) mmol/L Chloride (96-108) mmol/L Carbon Dioxide (22-29) mmol/L Anion Gap (12-20) BUN (9-16) mg/dL Creatinine (0.5-1.4) mg/dL Estim Creat Clear Calc Estimated GFR POC Glucose 98 (60-115) mg/dL Random Glucose (60-115) mg/dL Calcium (8.4-10.2) mg/dL Magnesium (1.6-2.6) mg/dL <MARNIE Miramontes - Last Filed: 03/02/21 13:48> Lab Results 03/02/21 03/02/21 03/02/21 Range/Units 15:14 15:14 15:14 WBC 7.7 (4.8-10.8) X10*3/uL RBC 4.41 (4.20-5.50) X10*6/uL Hgb 12.9 (12.0-16.0) g/dl Hct 39.9 (37-47) % MCV 90.5 (80-98) fL MCH 29.3 (27.0-33.0) pg MCHC 32.3 (31.0-35.0) g/dl RDW 12.2 (11.0-16.0) % Plt Count 241 (160-400) X10*3/uL MPV 11.7 (9.4-12.3) fL Immature Gran % (Auto) 0.3 (0.0-0.4) % Neut % (Auto) 63.5 (45-73) % Lymph % (Auto) 28.1 (20-40) % [place] % (Auto) 6.1 (2-11) % Eos % (Auto) 1.6 (0-4) % Baso % (Auto) 0.4 (0-2) % Lymph # (Auto) 2.2 (1.2-4.9) X10*3/uL [place] # (Auto) 0.5 (0.1-1.2) X10*3/uL Eos # (Auto) 0.1 (0.0-0.4) X10*3/uL Baso # (Auto) 0.0 (0.0-0.2) X10*3/uL Abs Immat Gran (auto) 0.02 (0.00-0.03) X10*3/uL Absolute Neuts (auto) 4.9 (2.0-8.3) X10*3/uL Absolute Nucleated RBC 0.000 (0.0-0.012) X10*3/uL Nucleated RBC % (auto) 0.0 (0.0-0.2) /100WBC Hold Blue Top SEE NOTE Sodium 138 (135-145) mmol/L Potassium 4.4 (3.3-5.1) mmol/L Chloride 103 (96-108) mmol/L Carbon Dioxide 26 (22-29) mmol/L Anion Gap 13 (12-20) BUN 13 (9-16) mg/dL Creatinine 0.84 (0.5-1.4) mg/dL Estim Creat Clear Calc 90.0 Estimated GFR > 60 POC Glucose (60-115) mg/dL Random Glucose 85 (60-115) mg/dL Calcium 9.4 (8.4-10.2) mg/dL Magnesium 2.4 (1.6-2.6) mg/dL 03/02/21 Range/Units 15:31 WBC (4.8-10.8) X10*3/uL RBC (4.20-5.50) X10*6/uL Hgb (12.0-16.0) g/dl Hct (37-47) % MCV (80-98) fL MCH (27.0-33.0) pg MCHC (31.0-35.0) g/dl RDW (11.0-16.0) % Plt Count (160-400) X10*3/uL MPV (9.4-12.3) fL Immature Gran % (Auto) (0.0-0.4) % Neut % (Auto) (45-73) % Lymph % (Auto) (20-40) % [place] % (Auto) (2-11) % Eos % (Auto) (0-4) % Baso % (Auto) (0-2) % Lymph # (Auto) (1.2-4.9) X10*3/uL [place] # (Auto) (0.1-1.2) X10*3/uL Eos # (Auto) (0.0-0.4) X10*3/uL Baso # (Auto) (0.0-0.2) X10*3/uL Abs Immat Gran (auto) (0.00-0.03) X10*3/uL Absolute Neuts (auto) (2.0-8.3) X10*3/uL Absolute Nucleated RBC (0.0-0.012) X10*3/uL Nucleated RBC % (auto) (0.0-0.2) /100WBC Hold Blue Top Sodium (135-145) mmol/L Potassium (3.3-5.1) mmol/L Chloride (96-108) mmol/L Carbon Dioxide (22-29) mmol/L Anion Gap (12-20) BUN (9-16) mg/dL Creatinine (0.5-1.4) mg/dL Estim Creat Clear Calc Estimated GFR POC Glucose 98 (60-115) mg/dL Random Glucose (60-115) mg/dL Calcium (8.4-10.2) mg/dL Magnesium (1.6-2.6) mg/dL <Niesha Chacon DO - Last Filed: 03/02/21 17:32> Discharge Plan Discharge Clinical Impression: Concussion <MARNIE Miramontes - Last Filed: 03/02/21 13:48> Patient Disposition: Home, Self-Care <MARNIE Miramontes - Last Filed: 03/02/21 13:48> Instructions: Concussion (ED) <MARNIE Miramontes - Last Filed: 03/02/21 13:48> Additional Instructions: return to ED for any worsening symptoms or concerns <MARNIE Miramontes - Last Filed: 03/02/21 13:48> Prescriptions: New cyclobenzaprine 10 mg tablet 10 mg PO TID PRN (Reason: muscle spasm) Qty: 14 RF: 0 pbmkpxtpbn-adtgvsujvghrz-lbic 50-325-40 mg tablet 1 tab PO Q6H PRN (Reason: pain) Qty: 20 RF: 0 ibuprofen 600 mg tablet 600 mg PO Q6H PRN (Reason: pain) Qty: 30 RF: 0 ondansetron 4 mg tablet,disintegrating 4 mg PO Q8H PRN (Reason: nausea and vomiting) Qty: 20 RF: 0 No Action naproxen 500 mg tablet 500 mg PO BID PRN (Reason: pain) Qty: 30 RF: 0 cyclobenzaprine 10 mg tablet 10 mg PO TID PRN (Reason: muscle spasm) Qty: 15 RF: 0 <MARNIE Miramontes - Last Filed: 03/02/21 13:48> Referrals: Physician,Unknown [Primary Care Provider] - 2 days (if not better) <MARNIE Miramontes - Last Filed: 03/02/21 13:48> Stand Alone Forms: Work/School Release <MARNIE Miramontes - Last Filed: 03/02/21 13:48> Print Language: Estonian <MARNIE Miramontes Last Filed: 03/02/21 13:48>
[2021-03-02 13:45] VITALS: BP 105/78; PULSE 82
[2021-03-02 15:20] LABS: MANUAL DIFF FLAG NO
[2021-03-02 15:22] LABS: Basophils Percent Auto 0.4 % (0-2); Eosinophils Absolute Auto 0.1 X10*3/uL (0.0-0.4); Eosinophils Percent Auto 1.6 % (0-4); Hematocrit 39.9 % (37-47); Hemoglobin 12.9 g/dl (12.0-16.0); Imm Gran Abs Auto 0.02 X10*3/uL (0.00-0.03); Imm Gran Pct Auto 0.3 % (0.0-0.4); Lymphocytes Absolute Auto 2.2 X10*3/uL (1.2-4.9); Lymphocytes Percent Auto 28.1 % (20-40); Mean Corpuscular HGB Conc 32.3 g/dl (31.0-35.0); Mean Corpuscular Hemoglobin 29.3 pg (27.0-33.0); Mean Corpuscular Volume 90.5 fL (80-98); Mean Platelet Volume 11.7 fL (9.4-12.3); Monocytes Absolute Auto 0.5 X10*3/uL (0.1-1.2); Monocytes Percent Auto 6.1 % (2-11); Neutrophils Absolute Auto 4.9 X10*3/uL (2.0-8.3); Neutrophils Percent Auto 63.5 % (45-73); Platelet Count 241 X10*3/uL (160-400); Red Blood Count 4.41 X10*6/uL (4.20-5.50); Red Cell Distribution Width 12.2 % (11.0-16.0); White Blood Count 7.7 X10*3/uL (4.8-10.8)
[2021-03-02 15:34] LABS: Glucose, Whole Blood 98 mg/dL (60-115)
[2021-03-02 15:47] LABS: Anion Gap 13 (12-20); Blood Urea Nitrogen 13 mg/dL (9-16); Calcium 9.4 mg/dL (8.4-10.2); Carbon Dioxide 26 mmol/L (22-29); Chloride 103 mmol/L (96-108); Estimated Glomerular Filt Rate > 60; Glucose Random 85 mg/dL (60-115); Magnesium 2.4 mg/dL (1.6-2.6); Potassium 4.4 mmol/L (3.3-5.1); Sodium 138 mmol/L (135-145)
[2021-03-02] MEDS: Butalb/Acetamin/Caff 50/325/40 TABLET 1 TAB PO (17:36)
[2021-03-02] MEDS: Cyclobenzaprine HCl 10 MG TABLET PO (17:36)
== END 2021-03-02 19:09 | disposition home or self-care (01) ==
PROVIDERS: Physician Assistant; Emergency Provider Emergency Medicine
DX: S06.0X9A Concussion with loss of consciousness of unspecified duration, initial encounter (principal); R42 Dizziness and giddiness; R51.9 Headache, unspecified; W01.0XXA Fall on same level from slipping, tripping and stumbling without subsequent striking against object, initial encounter; Y93.9 Activity, unspecified; Y92.009 Unspecified place in unspecified non-institutional (private) residence as the place of occurrence of the external cause; Y99.9 Unspecified external cause status; Z79.899 Other long term (current) drug therapy
CPT/HCPCS: 36415; 80048; 82947; 83735; 85025; 93005; 99284

== ENCOUNTER 2023-01-20 14:01 | Emergency (ER) | payer MEDICAID, SELFPAY | END 2023-01-20 15:44 | disposition left against medical advice (07) | PROVIDERS: Emergency Provider Emergency Medicine | DX: Z53.21 Procedure and treatment not carried out due to patient leaving prior to being seen by health care provider (principal) ==

== ENCOUNTER 2023-04-15 10:55 | Outpatient (REF) | payer MEDICAID, SELFPAY ==
[2023-04-16 08:12] LABS: HBc Num1 0.17 S/CO (0.00-0.79); HBsAGNum1 0.34 S/CO (0.00-0.99); HIV AB/AG Nonreactive (Nonreactive); HIV Num 1 0.05 S/CO (0.00-0.99); Hepatitis B Core Antibody Nonreactive (Nonreactive); Hepatitis B Surface Antigen Negative (Negative); ~HepC Num1 0.09 S/CO (0.00-0.79); ~Hepatitis C Antibody Nonreactive (Nonreactive)
== END 2023-04-15 10:56 | disposition home or self-care (01) ==
LOC: HO.LAB 10:55
PROVIDERS: Internal Medicine Geriatric Medicine; PCP Internal Medicine; Visit Provider Internal Medicine
DX: Z11.4 Encounter for screening for human immunodeficiency virus [HIV] (principal); Z72.51 High risk heterosexual behavior
CPT/HCPCS: 36415; 86592; 86704; 86780; 86803; 87340; 87389

== ENCOUNTER 2023-04-28 14:17 | Emergency (ER) | payer MEDICAID, SELFPAY ==
--- NOTE | ~2023-04-28 | XR_ITS ---
EXAMINATION: XR CHEST CLINICAL INFORMATION: Chest pain COMPARISON: None available. TECHNIQUE: 2 views of the chest were obtained. FINDINGS: No significant abnormality is noted involving the heart, lungs, mediastinum, bony thorax or soft tissues. XR/XR chest 2V IMPRESSION: Unremarkable examination.
--- NOTE | 2023-04-28 14:24 | ECG_ITS ---
Test Reason : CHEST PAIN Blood Pressure : / mmHG Vent. Rate : 083 BPM Atrial Rate : 083 BPM P-R Int : 106 ms QRS Dur : 076 ms QT Int : 378 ms P-R-T Axes : 043 008 -46 degrees QTc Int : 444 ms Sinus rhythm with short MA Minimal voltage criteria for LVH, may be normal variant ( R in aVL ) ST & T wave abnormality, consider anterolateral ischemia Abnormal ECG When compared with ECG of 02-MAR-2021 15:10, Nonspecific T wave abnormality, worse in Inferior leads T wave inversion now evident in Anterior leads QT has lengthened Referred By: Martina Hernandez Electronically Signed By:Mil Bello
[2023-04-28 14:25] VITALS: BP 124/75; PULSE 71; RESP 20; TEMP 36.7; O2SAT 98; BMI 30.6
--- NOTE | 2023-04-28 14:29 | ED_ITS ---
HPI - General Adult General Chief complaint: Chest Pain Stated complaint: chest pain x 1day, nausea, vomiting Time Seen by Provider: 04/28/23 17:23 Source: patient Mode of arrival: ambulatory Limitations: no limitations History of Present Illness HPI narrative: Patient has history of anxiety been having chest pain for several months increased stress and anxiety after her father in 11/02 get mid chest pain almost daily this time pain is been there for 3 days sharp get worse on palpation and movements also has vomiting with anxiety with some blood streak as in the past.. No known coronary risk factor no shortness of breath no cough Related Data Previous Rx's Medication Instructions Recorded cyclobenzaprine 10 mg tablet 10 mg PO TID PRN muscle spasm #15 07/15/20 tabs naproxen 500 mg tablet 500 mg PO BID PRN pain #30 tabs 07/15/20 pxsiycpxrn-jaokppnqagplp-fhuyzzus 1 tab PO Q6H PRN pain #20 tabs 03/02/21 50 mg-325 mg-40 mg tablet cyclobenzaprine 10 mg tablet 10 mg PO TID PRN muscle spasm #14 03/02/21 tabs ibuprofen 600 mg tablet 600 mg PO Q6H PRN pain #30 tabs 03/02/21 ondansetron 4 mg disintegrating 4 mg PO Q8H PRN nausea and 03/02/21 tablet vomiting #20 tabs ibuprofen 600 mg tablet 600 mg PO Q6H PRN fever or pain 04/28/23 #30 tabs lorazepam 1 mg tablet (Ativan) 1 mg PO BEDTIME PRN anxiety/sleep 04/28/23 #14 tabs ondansetron 4 mg disintegrating 4 mg PO Q6-8H PRN nausea and 04/28/23 tablet vomiting #7 tabs Allergies Allergy/AdvReac Type Severity Reaction Status Date / Time No Known Allergies Allergy Verified 03/02/21 13:40 Review of Systems Review of Systems: Yes all other systems are reviewed and are negative PMFSH Past Medical History Medical History No known health problems Social History Social History Alcohol intake: never Smoked in Last 30 Days: No Use of substances other than those prescribed or required for medical reasons: No Advance Directives: No Advance Directives Information Provided: No Physical Exam ED Vital Signs: Vital Signs - 24 hr 04/28/23 14:25 04/28/23 17:32 04/28/23 17:33 Temperature 98.1 F 98.5 F Pulse Rate 71 76 Respiratory Rate 20 18 Blood Pressure 124/75 118/77 Pulse Oximetry 98 98 Oxygen Delivery Method Room Air Room Air BMI result Body Mass Index 30.6 Appearance: Alert. Oriented X3. No acute distress. Eyes: No pallor or icterus ENT: Pharynx normal. Oral Mucosa moist Neck: Normal inspection. Neck supple. CVS: Normal heart rate and rhythm. Pulses normal. Second intercostal space bilateral tenderness to palpation Respiratory: No respiratory distress. Equal air entry bilateral, no whe ezing/rales/rhonchi Abdomen: Soft and nontender. Bowel sounds are present, no mass palpable, no CVA tenderness Skin: Skin warm and dry. Normal skin color. Normal skin turgor. Extremities: No lower extremity edema. No calf tenderness Neuro: Oriented X 3. No motor deficit. Course Course Course Narrative: RME - 37 yo Pakistani speaking female presents to the ER via EMS for evaluation of intermittent, nonradiating chest pain that started yesterday along with 5 episodes of bloody vomitus that occurred today. She is dizzy. VSS. Appears well Plan: EKG, CXR, lab workup Medical Decision Making Differential Diagnosis Differential Diagnoses: The differential diagnosis associated with the presentation includes Costochondritis/ACS/anxiety Admission/Observation Consideration of admission/observation: Escalation of care including admis jose j/observation considered Chest pain rule out ACS but workup was normal Lab Data MDM Lab Attestation statement: I reviewed the patient's lab results. 04/28/23 14:47 04/28/23 14:47 Labs: Lab Results 04/28/23 04/28/23 04/28/23 Range/Units 14:47 14:47 14:47 WBC 8.5 (4.8-10.8) X10*3/uL RBC 4.70 (4.20-5.50) X10*6/uL Hgb 13.2 (12.0-16.0) g/dl Hct 41.7 (37.0-47.0) % MCV 88.7 (80.0-98.0) fL MCH 28.1 (27.0-33.0) pg MCHC 31.7 (31.0-35.0) g/dl RDW 12.7 (11.0-16.0) % Plt Count 276 (160-400) X10*3/uL MPV 11.7 (9.4-12.3) fL Immature Gran % (Auto) 0.2 (0.0-0.4) % Neut % (Auto) 63.6 (45-73) % Lymph % (Auto) 28.5 (20-40) % [place] % (Auto) 5.2 (2-11) % Eos % (Auto) 1.9 (0-4) % Baso % (Auto) 0.6 (0-2) % Lymph # (Auto) 2.4 (1.2-4.9) X10*3/uL [place] # (Auto) 0.4 (0.1-1.2) X10*3/uL Eos # (Auto) 0.2 (0.0-0.4) X10*3/uL Baso # (Auto) 0.1 (0.0-0.2) X10*3/uL Abs Immat Gran (auto) 0.02 (0.00-0.03) X10*3/uL Absolute Neuts (auto) 5.4 (2.0-8.3) x10*3/uL Absolute Nucleated RBC 0.000 (0.0-0.012) X10*3/uL Nucleated RBC % (auto) 0.0 (0.0-0.2) /100WBC PT 11.9 (10.0-13.1) SEC INR 1.0 (0.9-1.1) APTT 27.7 (26.0-36.4) SEC Sodium 139 (135-145) mmol/L Potassium 3.9 (3.3-5.1) mmol/L Chloride 104 (96-108) mmol/L Anion Gap TNP BUN 11 (9-16) mg/dL Creatinine 0.82 (0.5-1.4) mg/dL Estim Creat Clear Calc 88.7 Estimated GFR > 60 Random Glucose 95 (60-115) mg/dL Calcium 9.8 (8.4-10.2) mg/dL Magnesium 2.4 (1.6-2.6) mg/dL Total Bilirubin 0.4 (0.0-1.0) mg/dL Direct Bilirubin 0.1 (0.0-0.5) mg/dL AST 14 (5-31) U/L ALT 14 (0-31) U/L Alkaline Phosphatase 111 (39-117) U/L Troponin I High Sens (<3.5-17.0) ng/L Total Protein 8.4 H (6.5-8.0) g/dL Albumin 4.2 (3.5-5.0) g/dL Lipase 20 (8-78) U/L Urine Color Urine Appearance Urine pH (5.0-9.0) Ur Specific [place] (1.005-1.025) Urine Protein (Neg-Trace) mg/dL Urine Glucose (UA) (Negative) mg/dL Urine Ketones (Negative) mg/dL Urine Blood (Negative) Urine Nitrite (Negative) Ur Leukocyte Esterase (Negative) Urine RBC (0-2) /HPF Urine WBC (0-5) /HPF Ur Squamous Epith Cells (0-2) /HPF Urine Bacteria (None Seen) Hyaline Casts (0-2) /LPF Ethyl Alcohol < 10 mg/dL 04/28/23 04/28/23 Range/Units 14:47 14:47 WBC (4.8-10.8) X10*3/uL RBC (4.20-5.50) X10*6/uL Hgb (12.0-16.0) g/dl Hct (37.0-47.0) % MCV (80.0-98.0) fL MCH (27.0-33.0) pg MCHC (31.0-35.0) g/dl RDW (11.0-16.0) % Plt Count (160-400) X10*3/uL MPV (9.4-12.3) fL Immature Gran % (Auto) (0.0-0.4) % Neut % (Auto) (45-73) % Lymph % (Auto) (20-40) % [place] % (Auto) (2-11) % Eos % (Auto) (0-4) % Baso % (Auto) (0-2) % Lymph # (Auto) (1.2-4.9) X10*3/uL [place] # (Auto) (0.1-1.2) X10*3/uL Eos # (Auto) (0.0-0.4) X10*3/uL Baso # (Auto) (0.0-0.2) X10*3/uL Abs Immat Gran (auto) (0.00-0.03) X10*3/uL Absolute Neuts (auto) (2.0-8.3) x10*3/uL Absolute Nucleated RBC (0.0-0.012) X10*3/uL Nucleated RBC % (auto) (0.0-0.2) /100WBC PT (10.0-13.1) SEC INR (0.9-1.1) APTT (26.0-36.4) SEC Sodium (135-145) mmol/L Potassium (3.3-5.1) mmol/L Chloride (96-108) mmol/L Anion Gap BUN (9-16) mg/dL Creatinine (0.5-1.4) mg/dL Estim Creat Clear Calc Estimated GFR Random Glucose (60-115) mg/dL Calcium (8.4-10.2) mg/dL Magnesium (1.6-2.6) mg/dL Total Bilirubin (0.0-1.0) mg/dL Direct Bilirubin (0.0-0.5) mg/dL AST (5-31) U/L ALT (0-31) U/L Alkaline Phosphatase (39-117) U/L Troponin I High Sens < 2.7 (<3.5-17.0) ng/L Total Protein (6.5-8.0) g/dL Albumin (3.5-5.0) g/dL Lipase (8-78) U/L Urine Color Yellow Urine Appearance Turbid Urine pH 8.0 (5.0-9.0) Ur Specific [place] 1.025 (1.005-1.025) Urine Protein 30 (1+) H (Neg-Trace) mg/dL Urine Glucose (UA) Negative (Negative) mg/dL Urine Ketones Trace (Negative) mg/dL Urine Blood Moderate (2+) H (Negative) Urine Nitrite Negative (Negative) Ur Leukocyte Esterase Trace H (Negative) Urine RBC 11-20 H (0-2) /HPF Urine WBC 11-20 H (0-5) /HPF Ur Squamous Epith Cells 11-20 (0-2) /HPF Urine Bacteria 1+ (None Seen) Hyaline Casts 0-2 (0-2) /LPF Ethyl Alcohol mg/dL Independent Interpretation I performed an independent interpretation of an: EKG Interpretation: Normal sinus rhythm heart rate 83 beats per minute LVH nonspecific T inversion in lateral leads no acute ST T wave changes no acute ischemia Discharge Plan Discharge Clinical Impression: Atypical chest pain, Anxiety Patient Disposition: Home, Self-Care Instructions: Noncardiac Chest Pain (ED), Anxiety (ED) Additional Instructions: Take medication to relax as prescribed Your chest pain is musculoskeletal and secondary to anxiety Follow-up with your PCP Prescriptions: New ibuprofen 600 mg tablet 600 mg PO Q6H PRN (Reason: fever or pain) Qty: 30 0RF ondansetron 4 mg tablet,disintegrating 4 mg PO Q6-8H PRN (Reason: nausea and vomiting) Qty: 7 0RF lorazepam [Ativan] 1 mg tablet 1 mg PO BEDTIME PRN (Reason: anxiety/sleep) Qty: 14 0RF No Action naproxen 500 mg tablet 500 mg PO BID PRN (Reason: pain) Qty: 30 0RF cyclobenzaprine 10 mg tablet 10 mg PO TID PRN (Reason: muscle spasm) Qty: 15 0RF Rx Instructions: Side effect is drowsiness. Do not take at work or while driving. cyclobenzaprine 10 mg tablet 10 mg PO TID PRN (Reason: muscle spasm) Qty: 14 0RF tuhosvirck-dmpaoowqwtunk-anux 50-325-40 mg tablet 1 tab PO Q6H PRN (Reason: pain) Qty: 20 0RF ibuprofen 600 mg tablet 600 mg PO Q6H PRN (Reason: pain) Qty: 30 0RF ondansetron 4 mg tablet,disintegrating 4 mg PO Q8H PRN (Reason: nausea and vomiting) Qty: 20 0RF
[2023-04-28 14:53] LABS: MANUAL DIFF FLAG NO
[2023-04-28 14:54] LABS: Basophils Absolute Auto 0.1 X10*3/uL (0.0-0.2); Basophils Percent Auto 0.6 % (0-2); Eosinophils Absolute Auto 0.2 X10*3/uL (0.0-0.4); Eosinophils Percent Auto 1.9 % (0-4); Hematocrit 41.7 % (37.0-47.0); Hemoglobin 13.2 g/dl (12.0-16.0); Imm Gran Abs Auto 0.02 X10*3/uL (0.00-0.03); Imm Gran Pct Auto 0.2 % (0.0-0.4); Lymphocytes Absolute Auto 2.4 X10*3/uL (1.2-4.9); Lymphocytes Percent Auto 28.5 % (20-40); Mean Corpuscular HGB Conc 31.7 g/dl (31.0-35.0); Mean Corpuscular Hemoglobin 28.1 pg (27.0-33.0); Mean Corpuscular Volume 88.7 fL (80.0-98.0); Mean Platelet Volume 11.7 fL (9.4-12.3); Monocytes Absolute Auto 0.4 X10*3/uL (0.1-1.2); Monocytes Percent Auto 5.2 % (2-11); Neutrophils Absolute Auto 5.4 x10*3/uL (2.0-8.3); Neutrophils Percent Auto 63.6 % (45-73); Platelet Count 276 X10*3/uL (160-400); Red Cell Distribution Width 12.7 % (11.0-16.0); White Blood Count 8.5 X10*3/uL (4.8-10.8)
[2023-04-28 14:57] LABS: Appearance Urine Turbid; Color Urine Yellow; Glucose Urine UA Negative (Negative); Leukocyte Esterase Urine Trace (Negative); Nitrite Urine Negative (Negative); Specific Gravity - Urine 1.025 (1.005-1.025); UMIC TRIGGER UACC YES; Urine Blood Moderate (2+) (Negative); Urine Ketones Trace mg/dL (Negative); Urine Protein 30 (1+) mg/dL (Neg-Trace)
[2023-04-28 15:00] LABS: Bacteria Urine 1+ (None Seen); Hyaline Casts Urine 0-2 /LPF (0-2); UACC Culture Trigger YES
[2023-04-28 15:06] LABS: Prothrombin Time 11.9 SEC (10.0-13.1)
[2023-04-28 15:09] LABS: Partial Thromboplastin Time 27.7 SEC (26.0-36.4)
[2023-04-28 15:26] LABS: Troponin-I High Sensitivity < 2.7 ng/L (<3.5-17.0)
[2023-04-28 15:27] LABS: Alanine Aminotransferase 14 U/L (0-31); Albumin Level 4.2 g/dL (3.5-5.0); Alkaline Phosphatase 111 U/L (39-117); Aspartate Amino Transferase 14 U/L (5-31); Bilirubin Direct 0.1 mg/dL (0.0-0.5); Bilirubin Total 0.4 mg/dL (0.0-1.0); Blood Urea Nitrogen 11 mg/dL (9-16); Calcium 9.8 mg/dL (8.4-10.2); Chloride 104 mmol/L (96-108); Creatinine Clr Calc Pharmacy 88.7; Estimated Glomerular Filt Rate > 60; Ethanol < 10 mg/dL; Glucose Random 95 mg/dL (60-115); Lipase 20 U/L (8-78); Magnesium 2.4 mg/dL (1.6-2.6); Potassium 3.9 mmol/L (3.3-5.1); Sodium 139 mmol/L (135-145); Total Protein 8.4 g/dL (6.5-8.0)
[2023-04-28 17:32] VITALS: TEMP 36.9
[2023-04-28 17:33] VITALS: BP 118/77; PULSE 76; RESP 18; O2SAT 98
[2023-04-28] MEDS: Ondansetron ODT 4 MG TAB.RAPDIS TRANSLINGU (18:32)
[2023-04-28] MEDS: Ibuprofen 600 MG TABLET PO (18:32)
[2023-04-28] MEDS: LORazepam 1 MG TABLET PO (18:32)
[2023-04-28 20:59] LABS: Carbon Dioxide 23 mmol/L (22-29)
== END 2023-04-28 18:35 | disposition home or self-care (01) ==
PROVIDERS: Physician Assistant; Emergency Provider Internal Medicine
DX: R07.89 Other chest pain (principal); F41.9 Anxiety disorder, unspecified
CPT/HCPCS: 36415; 71046; 80048; 80076; 80307; 81001; 83690; 83735; 84484; 85025; 85610; 85730; 87086; 93005; 99284; 99285

== ENCOUNTER → 2023-04-28 14:24 | Outpatient (BNV) | payer MEDICAID, SELFPAY | PROVIDERS: Emergency Provider Internal Medicine; Visit Provider Internal Medicine Cardiovascular Disease | DX: R94.31 Abnormal electrocardiogram [ECG] [EKG] (principal) | CPT/HCPCS: 93010 ==

== ENCOUNTER 2023-10-13 10:03 | Outpatient (REF) | payer MEDICAID, SELFPAY ==
[2023-10-13 11:57] LABS: MANUAL DIFF FLAG NO
[2023-10-13 12:10] LABS: Basophils Percent Auto 0.8 % (0-2); Eosinophils Absolute Auto 0.1 X10*3/uL (0.0-0.4); Eosinophils Percent Auto 1.8 % (0-4); Hematocrit 42.1 % (37.0-47.0); Hemoglobin 13.4 g/dl (12.0-16.0); Imm Gran Abs Auto 0.01 X10*3/uL (0.00-0.03); Imm Gran Pct Auto 0.2 % (0.0-0.4); Lymphocytes Absolute Auto 1.8 X10*3/uL (1.2-4.9); Lymphocytes Percent Auto 35.2 % (20-40); Mean Corpuscular HGB Conc 31.8 g/dl (31.0-35.0); Mean Corpuscular Hemoglobin 28.1 pg (27.0-33.0); Mean Corpuscular Volume 88.3 fL (80.0-98.0); Monocytes Absolute Auto 0.7 X10*3/uL (0.1-1.2); Monocytes Percent Auto 14.3 % (2-11); Neutrophils Absolute Auto 2.4 x10*3/uL (2.0-8.3); Neutrophils Percent Auto 47.7 % (45-73); Platelet Count 206 X10*3/uL (160-400); Red Blood Count 4.77 X10*6/uL (4.20-5.50)
[2023-10-18 16:18] LABS: Immunoglobulin A 344 mg/dL (47-310); Transglutaminase IgA 1.1 U/mL
== END 2023-10-13 10:04 | disposition home or self-care (01) ==
LOC: HO.HHCL 10:03
PROVIDERS: Visit Provider Emergency Medicine
DX: R10.13 Epigastric pain (principal)
CPT/HCPCS: 36415; 80053; 82784; 83036; 83690; 85025; 86364; 86704; 86706; 86709; 86803; 87340

== ENCOUNTER 2023-11-17 18:13 | Outpatient (REF) | payer MEDICAID, SELFPAY | END 2023-11-17 18:14 | disposition home or self-care (01) | LOC: HO.HHCLNP 18:13 | PROVIDERS: Visit Provider Emergency Medicine | DX: R05.9 Cough, unspecified (principal) | CPT/HCPCS: 87070 ==

== ENCOUNTER 2024-04-04 04:07 | Inpatient (IN) | payer MEDICAID, SELFPAY ==
[2024-04-04] VITALS (17 sets, daily range): BP systolic 88–117; BP diastolic 53–78; PULSE 73–106; RESP 16–20; TEMP 36.3–38.4; O2SAT 94–99; BMI 29.7; BMI 28.6
--- NOTE | ~2024-04-04 | US_ITS ---
EXAMINATION: US PELVIS CLINICAL INFORMATION: Bandemia, abdominal pain, vomiting, follow-up CT findings from earlier in the day. COMPARISON: Same day abdominal CT TECHNIQUE: Ultrasound of the pelvis is performed using transabdominal transducers along with Doppler. Patient refused transvaginal examination due to dizziness. FINDINGS: Uterus: The uterus is anteverted and measures 10.5 x 5.0 x 4.9 cm. Uterine volume is 134.5 mL. The double wall endometrial thickness is 5 mm. 1.8 x 1.6 x 1.3 and 2.1 x 2.0 x 1.6 cm uterine fibroids are identified. Adnexa: Right ovary was not identified. Left ovary measures 1.6 x 1.8 x 1.9 cm. Ovarian volume equals 2.9 mL. No free fluid. US/US pelvic complete IMPRESSION: Uterine fibroids. Nonvisualization right ovary.
--- NOTE | ~2024-04-04 | CT_ITS ---
EXAMINATION: CT ABDOMEN AND PELVIS WITH CONTRAST CLINICAL INFORMATION: Diffuse abdominal pain with bandemia COMPARISON: None available. TECHNIQUE: Multidetector volumetric images were obtained from the superior aspect of the liver through the pubic symphysis following administration 85 mL of Omnipaque 350 intravenous contrast. Sagittal and coronal reformatted images were obtained on the technologist's workstation. Oral contrast: No This CT examination was performed using dose optimization techniques as appropriate, variously including the following: *Automated exposure control *Adjustment of mA and/or kV according to patient size (this includes techniques or standardized protocols for targeted exams where dose is matched to indication/reason for exam; i.e. extremities or head) *Use of iterative reconstruction technique DLP: 489 mGy-cm FINDINGS: FINANCIAL RISK MANAGER: Nonobstructive bowel pattern. Cholecystectomy clips. LUNG BASES: Evaluation of the lung bases limited by respiratory motion. Likely mild atelectasis. Nonenlarged heart. No pericardial effusion. Small hiatal hernia/distal esophageal thickening. LIVER, GALLBLADDER, AND BILIARY TREE: The liver is normal in size, shape, and attenuation. No focal hepatic lesion or biliary ductal dilatation is present. The gallbladder has been surgically removed. PANCREAS: Unremarkable. SPLEEN: Enlarged at 13.1 ADRENAL GLANDS: Unremarkable. KIDNEYS AND URETERS: The kidneys are normal in size, shape, and attenuation. No hydronephrosis, hydroureter, or calculi seen. No perinephric stranding. 1.3 cm left mid/upper pole renal cyst. Too small to characterize left lower pole hypodensity, likely cyst. BLADDER: Decompressed. GASTROINTESTINAL TRACT: Decompressed stomach. Nonobstructive bowel pattern. Terminal ileum is decompressed. Unremarkable appendix. No colonic pathology recognized. ABDOMINAL WALL: Small fat filled umbilical hernia. LYMPH NODES: No pathologic lymphadenopathy. Nonspecific bilateral inguinal lymph nodes. VASCULAR: Unremarkable. PELVIC VISCERA: Likely bilateral ovarian follicles/small cysts. Cervical region appears prominent and heterogeneous with bilateral mild pelvic stranding and small amount of free pelvic fluid. OSSEOUS STRUCTURES: Unremarkable. CT/CT abdomen pelvis w IV con IMPRESSION: Mild splenomegaly. Left renal cysts. Small hiatal hernia with question mild esophageal thickening. Cervix appears thickened and heterogeneous with mild stranding and small amount of free pelvic fluid. Consider pelvic ultrasound if clinically indicated. Fleischner guidelines were followed.
--- NOTE | 2024-04-04 04:15 | ED_ITS ---
HPI - Abdominal Pain General Chief Complaint: Nausea/Vomiting/Diarrhea Stated Complaint: VOMITING Time Seen by Provider: 04/04/24 04:14 Source: patient and EMS Mode of arrival: EMS Limitations: no limitations History of Present Illness ED Provider: Dr. Morgan HPI narrative: patient lives in a stressful environment and due to the environment she has had multiple episodes of vomiting with occaisional blood streaks MD elicited complaint: abdominal pain Onset (ago): month(s) Pain Consistency: intermittent Location: diffuse Severity: mild Associated symptoms: nausea and vomiting Related Data Previous Rx's ?Medication ?Instructions ?Recorded cyclobenzaprine 10 mg tablet 10 mg PO TID PRN muscle spasm #15 07/15/20 tabs naproxen 500 mg tablet 500 mg PO BID PRN pain #30 tabs 07/15/20 cetdxqrjif-aecvhzxmwhrar-lwohuzrg 1 tab PO Q6H PRN pain #20 tabs 03/02/21 50 mg-325 mg-40 mg tablet cyclobenzaprine 10 mg tablet 10 mg PO TID PRN muscle spasm #14 03/02/21 tabs ibuprofen 600 mg tablet 600 mg PO Q6H PRN pain #30 tabs 03/02/21 ondansetron 4 mg disintegrating 4 mg PO Q8H PRN nausea and 03/02/21 tablet vomiting #20 tabs ibuprofen 600 mg tablet 600 mg PO Q6H PRN fever or pain 04/28/23 #30 tabs lorazepam 1 mg tablet (Ativan) 1 mg PO BEDTIME PRN anxiety/sleep 04/28/23 #14 tabs ondansetron 4 mg disintegrating 4 mg PO Q6-8H PRN nausea and 04/28/23 tablet vomiting #7 tabs Allergies Allergy/AdvReac Type Severity Reaction Status Date / Time No Known Allergies Allergy Verified 04/04/24 04:15 Review of Systems Denies Sensory deficit (Neuro) PMFSH Past Medical History Medical History No known health problems Social History Social History Alcohol intake: never Smoked in Last 30 Days: No Use of substances other than those prescribed or required for medical reasons: No Advance Directives: No Advance Directives Information Provided: Yes Do you have a plan to hurt others: No Plan Patient : No Physical Exam ED Vital Signs: Vital Signs - 24 hr 04/04/24 04:10 Temperature 99.9 F Pulse Rate 95 Respiratory Rate 18 Blood Pressure 104/67 Pulse Oximetry 99 Oxygen Delivery Method Room Air BMI result Body Mass Index 29.7 Const General: healthy appearing Nutritional Appearance: average body habitus Orientation/consciousness: oriented to person and patient oriented x3 Limitations: no limitations HENMT Head: Yes normal to inspection Ears: external ears normal General nose exam: Normal external nose present Mouth: Normal oral and palatal mucosa present and oropharynx normal Throat: Yes posterior oropharynx normal Eyes General: appearance normal, both eyes and all related structures Neck Neck: Yes normal visual inspection Chest Chest palpation & inspection: normal inspection of the chest Resp Auscultation: clear to auscultation bilaterally Cardio Jugular venous distension: no JVD Rate: regular rate Rhythm: regular rhythm Heart sounds: S1 normal heart sound present and S2 normal heart sound present GI Inspection: Yes normal to inspection Palpation (GI): Soft to palpation, nontender and No hepatosplenomegaly present Auscultation: normal bowel sounds General: Yes no CVA tenderness Back/Spine/Pelvis Back: no CVA tenderness Skin General skin exam: no rashes or lesions noted Neuro General: oriented to person and patient oriented x3 Cranial nerves: Yes CN's II-XII intact bilaterally Motor exam (neuro): 5/5 motor strength present throughout Sensory Exam: No Sensory deficit (Neuro) Extrem General: Yes normal to inspection Psych Appearance: grossly normal Course Reevaluation(s) Reevaluation #1: with 10 bands and diffuse abdominal pain will CT with IV contrast, will place patient into physician observation at this time Time: 06:14 Medical Decision Making Differential Diagnosis Differential Diagnoses: The differential diagnosis associated with the presentation includes (gastritis, perforated viscous, hepatitis, pancreatitis were all considered) Admission/Observation Consideration of admission/observation: Escalation of care including admission/observation considered (upon arrival patient considered for admission) Lab Data MDM Lab Attestation statement: I reviewed the patient's lab results. (aware of bandemia of 10) 04/04/24 04:53 04/04/24 04:53 Labs: Lab Results 04/04/24 Range/Units 04:53 WBC 7.7 (4.8-10.8) X10*3/uL RBC 4.35 (4.20-5.50) X10*6/uL Hgb 12.3 (12.0-16.0) g/dl Hct 36.8 L (37.0-47.0) % MCV 84.6 (80.0-98.0) fL MCH 28.3 (27.0-33.0) pg MCHC 33.4 (31.0-35.0) g/dl RDW 12.8 (11.0-16.0) % Plt Count 129 L D (160-400) X10*3/uL MPV 12.0 (9.4-12.3) fL Immature Gran % (Auto) Cancelled Neut % (Auto) Cancelled Lymph % (Auto) Cancelled [place] % (Auto) Cancelled Eos % (Auto) Cancelled Baso % (Auto) Cancelled Lymph # (Auto) Cancelled [place] # (Auto) Cancelled Eos # (Auto) Cancelled Baso # (Auto) Cancelled Abs Immat Gran (auto) Cancelled Absolute Neuts (auto) Cancelled Absolute Nucleated RBC 0.000 (0.0-0.012) X10*3/uL Nucleated RBC % (auto) 0.0 (0.0-0.2) /100WBC Neutrophils % (Manual) 42 L (45-73) % Band Neutrophils % 10 H (3-5) % Lymphocytes % (Manual) 27 (20-40) % Atypical Lymphs % (Man) 15 H (0-6) % Monocytes % (Manual) 4 (2-11) % Eosinophils % (Manual) 1 (0-4) % Basophils % (Manual) 1 (0-2) % Abs Neuts (Manual) 4.0 (2.0-8.3) X10*3/uL Lymphocytes # (Manual) 2.1 (1.2-4.9) X10*3/uL Atyp Lymphs # (Manual) 1.2 x10*3/uL Monocytes # (Manual) 0.3 (0.1-1.2) X10*3/uL Eosinophils # (Manual) 0.1 (0.0-0.4) X10*3/uL Basophils # (Manual) 0.1 (0.0-0.2) X10*3/uL Platelet Estimate SLIGHTLY DECREASED (NORMAL) Plt Morphology Comment NORMAL RBC Morphology NORMAL Sodium 137 (135-145) mmol/L Potassium 3.4 (3.3-5.1) mmol/L Chloride 100 (96-108) mmol/L Carbon Dioxide 28 (22-29) mmol/L Anion Gap 12 (12-20) BUN 10 (9-16) mg/dL Creatinine 0.93 (0.5-1.4) mg/dL Estim Creat Clear Calc 85.4 Estimated GFR > 60 Random Glucose 111 (60-115) mg/dL Calcium 8.0 L D (8.4-10.2) mg/dL Total Bilirubin 0.6 (0.0-1.0) mg/dL AST 30 (5-31) U/L ALT 24 (0-31) U/L Alkaline Phosphatase 78 (39-117) U/L Total Protein 7.5 (6.5-8.0) g/dL Albumin 3.7 (3.5-5.0) g/dL Lipase 35 (8-78) U/L Independent Historian Clinical information obtained from an independent historian. History obtained from or confirmed by: EMS External Record Review External record reviewed: Outpatient record Chronic Conditions Patient?s care impacted by: Other (anxiety) Medications Administered Discontinued Medications Generic Name Dose Route Start Last Admin Trade Name Freq PRN Reason Stop Dose Admin Famotidine 20 mg 04/04/24 04:15 04/04/24 04:43 Famotidine 20 Mg Tablet PO 04/04/24 04:16 20 mg ONCE ONE Administration Ondansetron HCl 4 mg 04/04/24 04:15 04/04/24 04:43 Ondansetron Odt 4 Mg Tab.Rapdis TRANSLINGU 04/04/24 04:16 4 mg ONCE ONE Administration Discharge Plan Discharge Clinical Impression: Abdominal pain, Bandemia Patient Disposition: Still a Patient Prescriptions: No Action naproxen 500 mg tablet 500 mg PO BID PRN (Reason: pain) Qty: 30 0RF cyclobenzaprine 10 mg tablet 10 mg PO TID PRN (Reason: muscle spasm) Qty: 15 0RF Rx Instructions: Side effect is drowsiness. Do not take at work or while driving. cyclobenzaprine 10 mg tablet 10 mg PO TID PRN (Reason: muscle spasm) Qty: 14 0RF semqpzqpld-ldrwwczehvalm-alus 50-325-40 mg tablet 1 tab PO Q6H PRN (Reason: pain) Qty: 20 0RF ibuprofen 600 mg tablet 600 mg PO Q6H PRN (Reason: pain) Qty: 30 0RF ondansetron 4 mg tablet,disintegrating 4 mg PO Q8H PRN (Reason: nausea and vomiting) Qty: 20 0RF ibuprofen 600 mg tablet 600 mg PO Q6H PRN (Reason: fever or pain) Qty: 30 0RF ondansetron 4 mg tablet,disintegrating 4 mg PO Q6-8H PRN (Reason: nausea and vomiting) Qty: 7 0RF lorazepam [Ativan] 1 mg tablet 1 mg PO BEDTIME PRN (Reason: anxiety/sleep) Qty: 14 0RF Print Language: Haitian
[2024-04-04] MEDS: Famotidine 20 MG TABLET PO (04:43)
[2024-04-04] MEDS: Ondansetron ODT 4 MG TAB.RAPDIS TRANSLINGU (04:43)
[2024-04-04 05:12] LABS: Alanine Aminotransferase 24 U/L (0-31); Albumin Level 3.7 g/dL (3.5-5.0); Alkaline Phosphatase 78 U/L (39-117); Anion Gap 12 (12-20); Aspartate Amino Transferase 30 U/L (5-31); Bilirubin Total 0.6 mg/dL (0.0-1.0); Blood Urea Nitrogen 10 mg/dL (9-16); Carbon Dioxide 28 mmol/L (22-29); Chloride 100 mmol/L (96-108); Creatinine Clr Calc Pharmacy 85.4; Estimated Glomerular Filt Rate > 60; Glucose Random 111 mg/dL (60-115); Lipase 35 U/L (8-78); Potassium 3.4 mmol/L (3.3-5.1); Sodium 137 mmol/L (135-145); Total Protein 7.5 g/dL (6.5-8.0)
[2024-04-04 05:23] LABS: Hematocrit 36.8 % (37.0-47.0); Hemoglobin 12.3 g/dl (12.0-16.0); Mean Corpuscular HGB Conc 33.4 g/dl (31.0-35.0); Mean Corpuscular Hemoglobin 28.3 pg (27.0-33.0); Mean Corpuscular Volume 84.6 fL (80.0-98.0); Platelet Count 129 X10*3/uL (160-400); Red Blood Count 4.35 X10*6/uL (4.20-5.50); Red Cell Distribution Width 12.8 % (11.0-16.0); White Blood Count 7.7 X10*3/uL (4.8-10.8)
--- NOTE | 2024-04-04 05:30 | PC.NURSE ---
pt biba from home, a&ox4, respirations even and unlabored. pt reporting onset of abdominal pain x2 weeks, reports x2 weeks of blood in vomit. pt reports she came in today due to the pain. pt denies chest pain and diarrhea. pt medicated per mar, pt resting comfortably.
[2024-04-04 06:04] LABS: Atypical Lymph Absolute Manual 1.2 x10*3/uL; Atypical Lymphs Percent Manual 15 % (0-6); Band Neutrophils Percent 10 % (3-5); Basophils Abs Manual 0.1 X10*3/uL (0.0-0.2); Basophils Percent Manual 1 % (0-2); Eosinophils Absolute Manual 0.1 X10*3/uL (0.0-0.4); Eosinophils Percent Manual 1 % (0-4); Lymphocytes Absolute Manual 2.1 X10*3/uL (1.2-4.9); Lymphocytes Percent Manual 27 % (20-40); Monocytes Absolute Manual 0.3 X10*3/uL (0.1-1.2); Monocytes Percent Manual 4 % (2-11); Neutrophils Percent Manual 42 % (45-73)
[2024-04-04 06:06] LABS: Platelet Estimate SLIGHTLY DECREASED (NORMAL); Platelet Morphology Comment NORMAL; RBC Morphology NORMAL
[2024-04-04] MEDS: Acetaminophen 325 MG TABLET 975 MG PO (06:24)
--- NOTE | 2024-04-04 06:34 | PC.NURSE ---
pt medicated per dec for 10/10 abdominal pain, pt tolerated well with water. 20G placed in left ac at this time.
--- NOTE | 2024-04-04 06:45 | PC.NURSE ---
pt ambulated to bathroom with steady gait, urine sample obtained and sent to lab.
[2024-04-04 06:55] LABS: Appearance Urine Cloudy; Color Urine Dark Yellow; Glucose Urine UA Negative (Negative); Leukocyte Esterase Urine Trace (Negative); Nitrite Urine Negative (Negative); Specific Gravity - Urine >= 1.030 (1.005-1.025); UMIC TRIGGER UACC YES; Urine Blood Negative (Negative); Urine Ketones 80 mg/dL (Negative); Urine Protein 30 (1+) mg/dL (Neg-Trace)
[2024-04-04 06:56] LABS: UPreg QC Valid YES; Urine Pregnancy NEGATIVE (NEGATIVE)
[2024-04-04] MEDS: 0.9 % Sodium Chloride 1,000 ML 999 ML IV ×3 (07:13→09:08)
--- NOTE | 2024-04-04 07:16 | PC.NURSE ---
pt is alert and oriented, skin appropriate for ethnicity, respirations even and unlabored, ls clear, pt reports generalized abd pain and nausea, abd slightly firm/distended but pt states this tis her baseline, tender all over and bowel sounds in all 4 quadrants, pt states having a bowel movement yesterday also is reporting feeling dizzy.
[2024-04-04 07:29] LABS: Bacteria Urine None Seen (None Seen); Hyaline Casts Urine 0-2 /LPF (0-2); RBC Urine 0-2 /HPF (0-2); Squamous Epithelial Cell Urine 0-2 /HPF (0-2); WBC Urine 0-5 /HPF (0-5)
[2024-04-04 07:43] LABS: Lactic Acid 0.9 mmol/L (0.5-2.0)
[2024-04-04] MEDS: iohexoL 350 MG/ML 100 ML INFUS..BTL IV (08:26)
[2024-04-04] MEDS: Pantoprazole Sodium 40 MG/10 ML VIAL IVPUSH (08:36)
--- NOTE | 2024-04-04 09:10 | PC.NURSE ---
patient a&o, pt soft bp currently 99/61, IVF running per order, pt c/o /10 abd pain, call motta within reach, will continue to monitor
[2024-04-04 09:26] LABS: Basophils Absolute Auto 0.1 X10*3/uL (0.0-0.2); Basophils Percent Auto 0.9 % (0-2); Eosinophils Percent Auto 0.7 % (0-4); Hematocrit 28.7 % (37.0-47.0); Hemoglobin 9.6 g/dl (12.0-16.0); Imm Gran Abs Auto 0.02 X10*3/uL (0.00-0.03); Imm Gran Pct Auto 0.4 % (0.0-0.4); Lymphocytes Absolute Auto 2.9 X10*3/uL (1.2-4.9); MANUAL DIFF FLAG SCAN; Mean Corpuscular HGB Conc 33.4 g/dl (31.0-35.0); Mean Corpuscular Hemoglobin 28.9 pg (27.0-33.0); Mean Corpuscular Volume 86.4 fL (80.0-98.0); Mean Platelet Volume 11.4 fL (9.4-12.3); Monocytes Absolute Auto 0.3 X10*3/uL (0.1-1.2); Monocytes Percent Auto 5.7 % (2-11); Neutrophils Absolute Auto 2.3 x10*3/uL (2.0-8.3); Neutrophils Percent Auto 40.3 % (45-73); Platelet Count 101 X10*3/uL (160-400); Red Blood Count 3.32 X10*6/uL (4.20-5.50); Red Cell Distribution Width 12.9 % (11.0-16.0); SCAN SMEAR FLAG 1; White Blood Count 5.7 X10*3/uL (4.8-10.8)
--- NOTE | 2024-04-04 09:44 | PC.NURSE ---
lab called and told this nurse that the patients hemoglobin had dropped a significant amount, this nurse gave the call to Dr. Chacon, the provider then went to speak with the patient and wanted to do a rectal exam, the patient refused the exam to be performed despite full explanation with an medical interpreter of why it needs to be done.
[2024-04-04 09:46] LABS: SLIDE REVIEW VERIFIED
--- NOTE | 2024-04-04 10:00 | PM.GICN ---
History of Present Illness Data of Consult Service Date: 04/04/24 Requesting physician: Penny Chacon Primary Care Provider: [facility] Reason for consult: UGI bleeding, upper abdominal pain 38 year old [place]ander-speaking female [facility] came to [facility] ED on 04/04/24 with blood tinged vomiting. Pt reported intermittent vomiting almost daily for the past two months, at times associated with blood. She complains of abdominal discomfort, headache and dizziness. Per pt her last episode of vomiting was at home. Patient denied NSAID or ETOH use She declined rectal and pelvic exam. Pt reports a remote hx of PUD. Family hx is positive for colon cancer in a grandparent. Labs showed H & H of 12.3 & 36.8, Plt 129 on arrival. Repeat labs after 3 hrs showed H & H of 9.6 & 28.7 and plt 101 Normal LFTs and chem panel . 04/04/[address] SCAN SHOWED: Mild splenomegaly. Left renal cysts. Small hiatal hernia with question mild esophageal thickening. Cervix appears thickened and heterogeneous with mild stranding and small amount of free pelvic fluid. Consider pelvic ultrasound if clinically indicated. Review of Systems Review of Systems: Gen: no fever Resp: no sob, no cough CV: no chest, no CASTORENA, no leg edema GI: +n/v, + abd pain Neuro: No confusion, headache, dizziness Yes all other systems are reviewed and are negative PMFSH Past Medical History Medical History No known health problems Social History Social History Alcohol intake: never Patient Tobacco Use Status: Never used Tobacco Smoked in Last 30 Days: No Second Hand Smoke Exposure: No Use of substances other than those prescribed or required for medical reasons: No Are you DNR?: No Advance Directives: No Advance Directives Information Provided: Yes Advance Directives on File: No Do you have a plan to hurt others: No Plan Patient : No Meds Allergies Allergy/AdvReac Type Severity Reaction Status Date / Time No Known Allergies Allergy Verified 04/04/24 04:15 Active Medications: Current Medications Sodium Chloride (Ns) 1,000 mls @ 999 mls/hr IV .Q1H1M ONE Stop: 04/04/24 10:01 Last Admin: 04/04/24 09:08 Dose: 999 mls/hr Physical Exam Vital Signs: Vital Signs: Last Vital Signs Temp 98.0 F 04/04/24 08:43 Pulse 73 04/04/24 09:09 Resp 18 04/04/24 09:09 BP 99/61 04/04/24 09:09 Pulse Ox 97 04/04/24 09:09 O2 Del Method Room Air 04/04/24 09:09 BMI result Body Mass Index 29.7 Appearance: Alert. Oriented X3. No acute distress. Eyes: Pupils equal, round and reactive to light. ENT: Pharynx normal. no trauma noted Neck: Normal inspection. Neck supple. CVS: Normal heart rate and rhythm. Pulses normal. Respiratory: No respiratory distress. Breath sounds normal. Abdomen: Soft and non-tender. Skin: Skin warm and dry. Normal skin color. Normal skin turgor. Extremities: No lower extremity edema. No calf ttp Neuro: Oriented X 3. No motor deficit. No sensory deficit. steady gait, GCS 15, playing on her phone in the room smiling Results Labs 04/04/24 09:18 04/04/24 04:53 Labs: Short CBC 04/04/24 04/04/24 Range/Units 04:53 09:18 WBC 7.7 5.7 (4.8-10.8) X10*3/uL Hgb 12.3 9.6 L D (12.0-16.0) g/dl Hct 36.8 L 28.7 L D (37.0-47.0) % Plt Count 129 L D 101 L (160-400) X10*3/uL BMP 04/04/24 04:53 Sodium 137 Potassium 3.4 Chloride 100 Carbon Dioxide 28 BUN 10 Creatinine 0.93 Calcium 8.0 L D Liver Function 04/04/24 Range/Units 04:53 Total Bilirubin 0.6 (0.0-1.0) mg/dL AST 30 (5-31) U/L ALT 24 (0-31) U/L Alkaline Phosphatase 78 (39-117) U/L Albumin 3.7 (3.5-5.0) g/dL Urine 04/04/24 Range/Units 06:46 Urine Color Dark Yellow Urine Appearance Cloudy Urine pH 6.0 (5.0-9.0) Ur Specific [place] >= 1.030 H (1.005-1.025) Urine Protein 30 (1+) H (Neg-Trace) mg/dL Urine Glucose (UA) Negative (Negative) mg/dL Assessment and Plan (1) Acute upper gastrointestinal bleeding: Status: Acute (2) Abdominal pain: Status: Acute Plan 38 year old [place]-speaking female [facility] came to [facility] ED on 04/04/24 with blood tinged vomiting. Pt reported intermittent vomiting almost daily for the past two months, at times associated with blood. She complains of abdominal discomfort, headache and dizziness. Labs showed H & H of 12.3 & 36.8, Plt 129 on arrival. Repeat labs after 3 hrs showed H & H of 9.6 & 28.7 [address] plt [address] scan showed: Mild splenomegaly, left renal cysts, small hiatal hernia with question mild esophageal thickening. RECOMMENDATIONS: 1. Agree with IV PPI and anti-emetics and admit for observation. 2. Proceed with EGD today. Pt brought to [facility] OR for EGD and initially refused. She went back to the ER and after talking to her daughter, pt agreed to have the EGD. EGD procedure and potential complications including bleeding, perforation, reaction to anesthetics and aspiration were reviewed with the patient with the help of a [place] sign language interpreter. She would like to proceed with EGD. Procedures Date of Service Date of Service: 04/04/24
[2024-04-04 10:04] LABS: Procalcitonin 0.18 ng/mL
--- NOTE | 2024-04-04 10:29 | PHA.MEDREC ---
Pharmacy Consult ? Medication Reconciliation Pharmacy has completed the medication reconciliation. Utilized roll cutter, pt kaity historian, nodded yes to all questions asked regarding migraine medications (imatrex and fioricet) but called [facility] pharmacy and there was no history of pick for the last 112 days.
--- NOTE | 2024-04-04 11:02 | P.HPHOSP_ITS ---
History of Present Illness Date of Service: 04/04/24 Chief Complaint: Vomitting with blood 38 year old female with no singificant past medical history who presents to the ED with blood tinged vomitting. She reports having intermittent daily vomitting for nearly 2 months, at times associated with blood. No specific triger, sometime has associated abdominal discomfort, headache and dizziness. Her hemoglobin has dropped from 12 to 9 over in 5 hours. She reports that her last vomitting was at home and presently has no abdominal pain. A CT of abdomen and pelvis show esophageal thickening. The CT further points to abnormal Cervix and an ultrasounds shows fibroid and absent righ ovary. She declined rectal and pelvic exam. Review of Systems 2 Review of Systems: Gen: no fever Resp: no sob, no cough CV: no chest, no CASTORENA, no leg edema GI: +n/v, + abd pain Neuro: No confusion, headache, dizziness Yes all other systems are reviewed and are negative [facility] Medical History No known health problems Social History Household Members: Family Do you presently have visiting nurse or other home services: No Alcohol intake: never Patient Tobacco Use Status: Never used Tobacco Smoked in Last 30 Days: No Second Hand Smoke Exposure: No Use of substances other than those prescribed or required for medical reasons: No Currently Displaying Signs/Symptoms of Drug Intoxication Withdrawal: No Are you DNR?: No Advance Directives: No Advance Directives Information Provided: Yes Advance Directives on File: No Do you have a plan to hurt others: No Plan Patient : No Meds Allergies Allergy/AdvReac Type Severity Reaction Status Date / Time No Known Allergies Allergy Verified 04/04/24 04:15 Physical Exam 2 Vital Signs and Narrative: Vital Signs: Last Vital Signs Temp 98.0 F 04/04/24 08:43 Pulse 74 04/04/24 10:34 Resp 16 04/04/24 10:34 BP 95/63 04/04/24 10:34 Pulse Ox 96 04/04/24 10:34 O2 Del Method Nasal Cannula 04/04/24 10:34 BMI result Body Mass Index 29.7 Const: Other: Constitutional: Alert, in no distress, Mental Status: Oriented to person, place and time. Eyes: Pupils are equal, round and reactive to light. Ear, Nose and Throat: Oropharynx clear, mucous membranes moist. Ears and nose without deformities. Trachea midline. Respiratory: Clear to auscultation. No wheezing, rales or rhonchi. Cardiovascular: S1 S2 regular. No murmurs, rubs or gallops. Gastrointestinal: Abdomen soft, non-tender, non-distended. Normal bowel sounds.? Neurologic: Cranial nerves II-XII grossly intact. No focal neurological deficits. Moves all extremities spontaneously.? Skin: No rashes or lesions.? Musculoskeletal: No cyanosis or clubbing. Psychiatric: Normal mood and affect? Results Labs 04/05/24 05:59 04/04/24 04:53 Labs: Laboratory Results - last 24 hr 04/04/24 04/04/24 04/04/24 04:53 06:46 07:21 MCV 84.6 MCH 28.3 MCHC 33.4 RDW 12.8 Plt Count 129 L D MPV 12.0 Immature Gran % (Auto) Cancelled Neut % (Auto) Cancelled Lymph % (Auto) Cancelled [place] % (Auto) Cancelled Eos % (Auto) Cancelled Baso % (Auto) Cancelled Lymph # (Auto) Cancelled [place] # (Auto) Cancelled Eos # (Auto) Cancelled Baso # (Auto) Cancelled Abs Immat Gran (auto) Cancelled Absolute Neuts (auto) Cancelled Absolute Nucleated RBC 0.000 Nucleated RBC % (auto) 0.0 Neutrophils % (Manual) 42 L Band Neutrophils % 10 H Lymphocytes % (Manual) 27 Atypical Lymphs % (Man) 15 H Monocytes % (Manual) 4 Eosinophils % (Manual) 1 Basophils % (Manual) 1 Abs Neuts (Manual) 4.0 Lymphocytes # (Manual) 2.1 Atyp Lymphs # (Manual) 1.2 Monocytes # (Manual) 0.3 Eosinophils # (Manual) 0.1 Basophils # (Manual) 0.1 Platelet Estimate SLIGHTLY DECREASED Plt Morphology Comment NORMAL RBC Morphology NORMAL Smear Tech's Comments Smear Path Review SEE NOTE Anion Gap 12 Estim Creat Clear Calc 85.4 Estimated GFR > 60 Random Glucose 111 Lactic Acid 0.9 Calcium 8.0 L D Total Bilirubin 0.6 AST 30 ALT 24 Alkaline Phosphatase 78 Total Protein 7.5 Albumin 3.7 Lipase 35 Procalcitonin Urine Color Dark Yellow Urine Appearance Cloudy Urine pH 6.0 Ur Specific [place] >= 1.030 H Urine Protein 30 (1+) H Urine Glucose (UA) Negative Urine Ketones 80 Urine Blood Negative Urine Nitrite Negative Ur Leukocyte Esterase Trace H Urine RBC 0-2 Urine WBC 0-5 Ur Squamous Epith Cells 0-2 Urine Bacteria None Seen Hyaline Casts 0-2 Urine Test NEGATIVE Blood Type Antibody Screen 04/04/24 04/04/24 09:18 09:52 MCV 86.4 MCH 28.9 MCHC 33.4 RDW 12.9 Plt Count 101 L MPV 11.4 Immature Gran % (Auto) 0.4 Neut % (Auto) 40.3 L Lymph % (Auto) 52.0 H [place] % (Auto) 5.7 Eos % (Auto) 0.7 Baso % (Auto) 0.9 Lymph # (Auto) 2.9 [place] # (Auto) 0.3 Eos # (Auto) 0.0 Baso # (Auto) 0.1 Abs Immat Gran (auto) 0.02 Absolute Neuts (auto) 2.3 Absolute Nucleated RBC 0.000 Nucleated RBC % (auto) 0.0 Neutrophils % (Manual) Band Neutrophils % Lymphocytes % (Manual) Atypical Lymphs % (Man) Monocytes % (Manual) Eosinophils % (Manual) Basophils % (Manual) Abs Neuts (Manual) Lymphocytes # (Manual) Atyp Lymphs # (Manual) Monocytes # (Manual) Eosinophils # (Manual) Basophils # (Manual) Platelet Estimate Plt Morphology Comment RBC Morphology Smear Tech's Comments VERIFIED Smear Path Review Anion Gap Estim Creat Clear Calc Estimated GFR Random Glucose Lactic Acid Calcium Total Bilirubin AST ALT Alkaline Phosphatase Total Protein Albumin Lipase Procalcitonin 0.18 Urine Color Urine Appearance Urine pH Ur Specific [place] Urine Protein Urine Glucose (UA) Urine Ketones Urine Blood Urine Nitrite Ur Leukocyte Esterase Urine RBC Urine WBC Ur Squamous Epith Cells Urine Bacteria Hyaline Casts Urine Test Blood Type B Positive Antibody Screen NEGATIVE Imaging Radiologist's Impressions: Impressions Abdomen/Pelvis CT 04/04/24 08:10 IMPRESSION: Mild splenomegaly. Left renal cysts. Small hiatal hernia with question mild esophageal thickening. Cervix appears thickened and heterogeneous with mild stranding and small amount of free pelvic fluid. Consider pelvic ultrasound if clinically indicated. Fleischner guidelines were followed. Pelvis Ultrasound 04/04/24 09:27 IMPRESSION: Uterine fibroids. Nonvisualization right ovary. Assessment and Plan (1) Acute upper gastrointestinal bleeding: Status: Acute (2) ABLA (acute blood loss anemia): Status: Acute (3) Abdominal pain: Status: Acute Plan 38/F with hematemesis, acute blood loss anemia (ABLA), abnormal pelvic imaging hematemesis/ABLA--DDx gastritisis, esophagitis, MWT -hold NSAID -IV PPI -Monitor H/H -GI consult Abnormal Pelvic US, CT--may need endovaginal US, BATCH FREEZER eval on outpatient basis Headach--related to vomitting, tyelenol PRN Bandemia without source of infection likely reactive DVT prophylaxis--low risk Full code admission for at least 2 midnights for treatement and work up of ABLA Quality Stroke Does the patient have a stroke diagnosis?: No VTE Prior VTE?: No VTE Risk Level:: Medical - low VTE Device Contraindication: Treatment Not Indicated VTE Drug Contraindication: Treatment Not Indicated
--- NOTE | 2024-04-04 11:33 | PC.NURSE ---
report given to short stay
[2024-04-04] MEDS: 0.9 % Sodium Chloride 1,000 ML 100 ML IVCONT ×2 (11:37→17:16)
--- NOTE | 2024-04-04 11:37 | PC.NURSE ---
ivf started per order
--- NOTE | 2024-04-04 12:13 | PC.NURSE ---
patient arrived to [facility] for scheduled EGD with Dr. Miller, software applications designer at bedside to do assessment. Dr. Miller and Dr. Eduardo also at bedside to obtain consent. patient states I am not prepared for this . patient refusing procedure at this time. [facility] coremaker bench notified. patient transported back to ED 19.
--- NOTE | 2024-04-04 12:40 | PC.NURSE ---
pt was discharged to the OR for a procedure, pt refused the procedure and was bought back to the ED. Dr. Johnson was notified.
--- NOTE | 2024-04-04 13:38 | PC.NURSE ---
pt is now agreeing to go to the OR, OR staff has returned to bring her back
--- NOTE | 2024-04-04 13:43 | HO.ANESPROP2 ---
[facility] Active Problems Active Problems: All Active Problems ABLA (acute blood loss anemia) (Acute) Acute upper gastrointestinal bleeding (Acute) Bandemia (Acute) Abdominal pain (Acute) Past Medical History Medical History No known health problems Family History Family history of problems with anesthesia: No Surgical History History of Problems with Anesthesia: No Social History Social History Alcohol intake: never Patient Tobacco Use Status: Never used Tobacco Smoked in Last 30 Days: No Second Hand Smoke Exposure: No Use of substances other than those prescribed or required for medical reasons: No Are you DNR?: No Advance Directives: No Advance Directives Information Provided: Yes Advance Directives on File: No Do you have a plan to hurt others: No Plan Patient : No Meds Allergies Allergy/AdvReac Type Severity Reaction Status Date / Time No Known Allergies Allergy Verified 04/04/24 04:15 Active Medications: Current Medications Acetaminophen (Acetaminophen 325 Mg Tablet) 650 mg PO Q6H PRN PRN Reason: Pain, Mild (Pain Scale 1-3), fever or headache Calcium Carbonate (Calcium Carbonate 750 Mg Tab.Chew) 750 mg PO Q4H PRN PRN Reason: Heartburn Sodium Chloride (Ns) 1,000 mls @ 100 mls/hr IVCONT .Q10H [facility] Last Admin: 04/04/24 11:37 Dose: 100 mls/hr Magnesium Hydroxide (Milk Of Magnesia 30 Ml Oral.Susp) 30 ml PO DAILY PRN PRN Reason: Constipation Melatonin (Melatonin 3 Mg Tablet) 6 mg PO BEDTIME PRN PRN Reason: Insomnia Ondansetron HCl (Ondansetron Hcl 4 Mg/2 Ml Vial) 4 mg IVPUSH Q8H PRN PRN Reason: Nausea and Vomiting Sodium Chloride (0.9 % Sodium Chloride Flush 3 Ml Syringe) 3 ml IVFLUSH QSHIFT [facility] Exam Height,Weight and Vital Signs: Height 5 ft 5 in Weight 81.1 kg Last Vital Signs Temp 98.7 F 04/04/24 12:18 Pulse 78 04/04/24 12:18 Resp 16 04/04/24 12:18 BP 105/69 04/04/24 12:18 Pulse Ox 98 06/25/24 12:18 O2 Del Method Room Air 04/04/24 12:18 Pertinent Lab Results Pertinent Lab Results: Laboratory Tests 04/04/24 04/04/24 04/04/24 04:53 06:46 07:21 WBC 7.7 RBC 4.35 Hgb 12.3 Hct 36.8 L MCV 84.6 MCH 28.3 MCHC 33.4 RDW 12.8 Plt Count 129 L D MPV 12.0 Immature Gran % (Auto) Cancelled Neut % (Auto) Cancelled Lymph % (Auto) Cancelled [place] % (Auto) Cancelled Eos % (Auto) Cancelled Baso % (Auto) Cancelled Lymph # (Auto) Cancelled [place] # (Auto) Cancelled Eos # (Auto) Cancelled Baso # (Auto) Cancelled Abs Immat Gran (auto) Cancelled Absolute Neuts (auto) Cancelled Absolute Nucleated RBC 0.000 Nucleated RBC % (auto) 0.0 Neutrophils % (Manual) 42 L Band Neutrophils % 10 H Lymphocytes % (Manual) 27 Atypical Lymphs % (Man) 15 H Monocytes % (Manual) 4 Eosinophils % (Manual) 1 Basophils % (Manual) 1 Abs Neuts (Manual) 4.0 Lymphocytes # (Manual) 2.1 Atyp Lymphs # (Manual) 1.2 Monocytes # (Manual) 0.3 Eosinophils # (Manual) 0.1 Basophils # (Manual) 0.1 Platelet Estimate SLIGHTLY DECREASED Plt Morphology Comment NORMAL RBC Morphology NORMAL Smear Tech's Comments Smear Path Review SEE NOTE Sodium 137 Potassium 3.4 Chloride 100 Carbon Dioxide 28 Anion Gap 12 BUN 10 Creatinine 0.93 Estim Creat Clear Calc 85.4 Estimated GFR > 60 Random Glucose 111 Lactic Acid 0.9 Calcium 8.0 L D Total Bilirubin 0.6 AST 30 ALT 24 Alkaline Phosphatase 78 Total Protein 7.5 Albumin 3.7 Lipase 35 Procalcitonin Urine Color Dark Yellow Urine Appearance Cloudy Urine pH 6.0 Ur Specific [place] >= 1.030 H Urine Protein 30 (1+) H Urine Glucose (UA) Negative Urine Ketones 80 Urine Blood Negative Urine Nitrite Negative Ur Leukocyte Esterase Trace H Urine RBC 0-2 Urine WBC 0-5 Ur Squamous Epith Cells 0-2 Urine Bacteria None Seen Hyaline Casts 0-2 Urine Test NEGATIVE Blood Type Antibody Screen 04/04/24 04/04/24 09:18 09:52 WBC 5.7 RBC 3.32 L D Hgb 9.6 L D Hct 28.7 L D MCV 86.4 MCH 28.9 MCHC 33.4 RDW 12.9 Plt Count 101 L MPV 11.4 Immature Gran % (Auto) 0.4 Neut % (Auto) 40.3 L Lymph % (Auto) 52.0 H Gordon % (Auto) 5.7 Eos % (Auto) 0.7 Baso % (Auto) 0.9 Lymph # (Auto) 2.9 [place] # (Auto) 0.3 Eos # (Auto) 0.0 Baso # (Auto) 0.1 Abs Immat Gran (auto) 0.02 Absolute Neuts (auto) 2.3 Absolute Nucleated RBC 0.000 Nucleated RBC % (auto) 0.0 Neutrophils % (Manual) Band Neutrophils % Lymphocytes % (Manual) Atypical Lymphs % (Man) Monocytes % (Manual) Eosinophils % (Manual) Basophils % (Manual) Abs Neuts (Manual) Lymphocytes # (Manual) Atyp Lymphs # (Manual) Monocytes # (Manual) Eosinophils # (Manual) Basophils # (Manual) Platelet Estimate Plt Morphology Comment RBC Morphology Smear Tech's Comments VERIFIED Smear Path Review Sodium Potassium Chloride Carbon Dioxide Anion Gap BUN Creatinine Estim Creat Clear Calc Estimated GFR Random Glucose Lactic Acid Calcium Total Bilirubin AST ALT Alkaline Phosphatase Total Protein Albumin Lipase Procalcitonin 0.18 Urine Color Urine Appearance Urine pH Ur Specific [place] Urine Protein Urine Glucose (UA) Urine Ketones Urine Blood Urine Nitrite Ur Leukocyte Esterase Urine RBC Urine WBC Ur Squamous Epith Cells Urine Bacteria Hyaline Casts Urine Test Blood Type B Positive Antibody Screen NEGATIVE Airway Mallampati Class: II TM Dist: >3cm Neck ROM: Full Partial: Upper and Lower Assessment and Plan Assessment Anesthesia Assessment: Anesthesia Plan Discussed and Chart Reviewed Final Anesthetic Review Family History of Problems with Anesthesia: No History of Problems with Anesthesia: No NPO: Yes ASA Class: II and Emergency Final Preanesthetic Review: No Changes in Pt Med Stat, Meds/Allgs Chart Reviewed, Consent Obtained/Reviewed and Anes Risks/Benef Reviewed Patient Risk: Intermediate Procedure Risk: Intermediate Anesthetic Plan Anesthetic Plan: TIVA Disposition: Standard PACU
--- NOTE | 2024-04-04 14:11 | P.OP_ITS ---
Operative Note Operative Note Date of Service: 04/04/24 Narrative: FLEXIBLE TRANSORAL UPPER GASTROINTESTINAL ENDOSCOPY WITH BIOPSIES Pre-op diagnosis: Abdominal pain, upper GI bleed Post-op diagnosis: Erosive esophagitis, hiatal hernia, gastric nodules and ulcers Endoscopist:? Immanuel Miller MD Anesthesia:?MAC UPPER ENDOSCOPY Consent: Indications for the procedure and potential complications of bleeding, perforation, reaction to medications and missed diagnosis were discussed with the patient and informed consent was obtained. Instrument: Olympus GIF H 190 mid size upper endoscope Monitoring: Vital signs and clinical assessment, continuous EKG monitoring, Pulse oximetry, Carbon Dioxide monitoring and blood pressure monitoring were done throughout the procedure. Procedure: The patient was placed in the left lateral decubitis position and pre-procedure medications were administered and a bite block was placed. The endoscope was inserted into the mouth and advanced under direct vision to the third part of duodenum. A careful inspection was made as the upper endoscope was withdrawn including a retroflexed examination of the proximal stomach; Findings and interventions are described below. Findings: Larynx: Normal Esophagus: GE junction at 32 cms, hiatal hernia 32 to 35 cms. LA grade B erosive esophagitis with a few 1-2 cms erosions at the GE junction Stomach: Moderate diffuse gastric erythema - biopsies were obtained from the antrum. A few 1 to 2 cms benign appearing nodules in the gastric antrum/pre-pyloric area - biopsies were obtained. A few nodules had central erosions and a 1 cms non-bleeding ulcer Grade 2 flap valve on retroflexed examination of the cardia. Duodenum: Normal bulb and descending duodenum Intervention: Biopsies as noted above Impression and Post Procedure Diagnosis: Endoscopy Findings: ESOPHAGUS: Medium sized hiatal hernia with erosive esophagitis STOMACH: Multiple gastric antral nodules - with central ulcerations and erosions (without high risk stigmata for bleeding). No blood seen in the upper GI tract during EGD. Source of hematemesis is likely from erosive esophagitis. Abdominal pain due to peptic uylcer disease Plan: Repeat CBC tonight and tomorrow am. Check iron profile, Vitamin B12 (added to am labs) Pt can be discharged home in the am on PO PPI twice a day if H & H remains stable without further bleeding. FU EGD in 3 to 4 months to confirm gastric ulcers have healed Above findings were reviewed with the patient (with the help of a Japanese language assistant) and relevant handouts were given and the discharge area. BIOPSIES SHOWED: A. Gastric antrum, biopsy: Chronic Helicobacter gastritis with mild activity; negative for intestinal metaplasia and dysplasia. B. Gastric antrum nodule, biopsy: Chronic Helicobacter gastritis with mild activity and foveolar hyperplasia; negative for intestinal metaplasia and dysplasia
[2024-04-04] MEDS: 0.9 % Sodium Chloride Flush 3 ML SYRINGE IVFLUSH (17:14)
[2024-04-04] MEDS: ondansetron HCL 4 MG/2 ML VIAL IVPUSH (20:32)
[2024-04-04] MEDS: Acetaminophen 325 MG TABLET 650 MG PO (20:32)
[2024-04-04 22:10] LABS: Appearance Urine Clear; Color Urine Yellow; Glucose Urine UA Negative (Negative); Leukocyte Esterase Urine Moderate (2+) (Negative); Nitrite Urine Negative (Negative); UMIC TRIGGER UACC YES; Urine Blood Small (1+) (Negative); Urine Ketones >=160 mg/dL (Negative); Urine Protein Trace mg/dL (Neg-Trace)
[2024-04-04 22:20] LABS: Bacteria Urine 1+ (None Seen); Hyaline Casts Urine 0-2 /LPF (0-2); Squamous Epithelial Cell Urine 0-2 /HPF (0-2); UACC Culture Trigger YES; WBC Clumps Urine Present; WBC Urine >50 /HPF (0-5)
[2024-04-04 22:48] LABS: Influenza A PCR NEGATIVE (Negative); Influenza B PCR NEGATIVE (Negative); Resp Syncy Virus RNA Qual PCR NEGATIVE (Negative); SARS COV2 PCR INHOUSE NEGATIVE (Negative)
[2024-04-05] MEDS: 0.9 % Sodium Chloride 1,000 ML 100 ML IVCONT (01:01)
[2024-04-05 03:53] VITALS: BP 106/55; PULSE 84; RESP 16; TEMP 36.2; O2SAT 97
[2024-04-05] MEDS: Acetaminophen 325 MG TABLET 650 MG PO (04:01)
[2024-04-05] MEDS: ondansetron HCL 4 MG/2 ML VIAL IVPUSH (04:23)
--- NOTE | 2024-04-05 05:23 | PC.NURSE ---
Addendum entered by Merry Jaimes RN 04/05/24 05:33: Dr. Rommel Hernandez ordered u/a with reflex, respiratory panel, and occult stool. u/a and respiratory panel sent to lab - resulted, see labs. Original Note: pt a&ox4, kyrgyz speaking, front office medical assistant needed to communicate with patient. pt c/o headache, myalgia, runny nose, vomiting and nausea. patient found to be febrile 101.2 F, medicated with PRN tylenol per orders. zofran IV given for n/v. Provider notified. patient states effective relief from PRN medications. Incontinent of urine x2, r/t vomiting, per patient. patient given a purewick for comfort, linens on bed changed. Patient steady gait - assistance need r/t patient feeling dizzy with nausea. Normal saline running continuous per MAR/orders. pt given a purewick for incontinence. patient medicated again prior to 0500 with tylenol for headache and and zofran for n/v. pt states medication was effective. pt remains NPO per MD orders. all needs met, call motta in reach. safety and comfort maintained.
[2024-04-05 06:48] VITALS: BP 101/58; PULSE 79; RESP 16; TEMP 36.6; O2SAT 96
[2024-04-05 07:08] LABS: Iron 20 mcg/dL (30-160); Percent Iron Saturation 11 % (15-50); Total Iron Binding Capacity 187 mcg/dL (228-428); Unsaturated Iron Binding 167 ug/dL
[2024-04-05 07:23] LABS: Ferritin 270 ng/mL (10-122)
[2024-04-05 07:29] LABS: Hematocrit 31.4 % (37.0-47.0); Hemoglobin 10.6 g/dl (12.0-16.0); Mean Corpuscular HGB Conc 33.8 g/dl (31.0-35.0); Mean Platelet Volume 13.1 fL (9.4-12.3); Platelet Count 108 X10*3/uL (160-400); Red Blood Count 3.65 X10*6/uL (4.20-5.50); White Blood Count 6.6 X10*3/uL (4.8-10.8)
[2024-04-05 07:33] LABS: Folate 8.4 ng/mL (> or = 4.0); Vitamin B12 180 pg/mL (200-900)
--- NOTE | 2024-04-05 08:39 | P.DS_ITS ---
DS: Providers Provider Date of Service: 04/05/24 Date of admission: 04/04/24 11:14 Primary care physician: [facility] Consults: 04/04/24 10:03 Consult to Gastroenterology Stat Consulting Provider: Immanuel Miller Reason for consultation: hematemesis, drop in hemoglobin Has provider been notified: Yes DS: Diagnosis Discharge Diagnosis (1) Acute upper gastrointestinal bleeding: Status: Acute (2) ABLA (acute blood loss anemia): Status: Acute (3) Abdominal pain: Status: Acute DS: Summary Hospital Course Hospital Course: admission hpi Chief Complaint: Vomitting with blood 38 year old female with no singificant past medical history who presents to the ED with blood tinged vomitting. She reports having intermittent daily vomitting for nearly 2 months, at times associated with blood. No specific triger, sometime has associated abdominal discomfort, headache and dizziness. Her hemoglobin has dropped from 12 to 9 over in 5 hours. She reports that her last vomitting was at home and presently has no abdominal pain. A CT of abdomen and pelvis show esophageal thickening. The CT further points to abnormal Cervix and an ultrasounds shows fibroid and absent righ ovary. She declined rectal and pelvic exam. Hospital course: Patient presented with above complaint and found to have anemia.. She underwent EGD with the following finding and recommendation by Dr. Miller STOMACH: Multiple gastric antral nodules - with central ulcerations and erosions (without high risk stigmata for bleeding). No blood seen in the upper GI tract during EGD. Source of hematemesis is likely from erosive esophagitis. Abdominal pain due to peptic uylcer disease Plan: Repeat CBC tonight and tomorrow am. Check iron profile, Vitamin B12 (added to am labs) Pt can be discharged home in the am on PO PPI twice a day if H & H remains stable without further bleeding. FU EGD in 3 to 4 months to confirm gastric ulcers have healed Above findings were reviewed with the patient (with the help of a Azeri foreign language stenographer) and relevant handouts. Repeat H/H the next day was better at 10.631, she is started on Prilosec 40 mg twice daily and to follow up with GI clinic. Iron profile shows irone deficiency (iron 20) and will give iron supplement. She advised to stop taking Naproxen and avoid all other NSAID B12 level was low at 180 (200-900) and will replace orally with Vit b12 1000 mcg daily As for finding thickened Cervix, uterine fibrioid and missing right ovary--she declined pelvic exam.. I am refering her to [facility] on outpatient basis for further work up. Time Attestation Discharge Coordination Time (in mins): 35 Quality: Safe Use of Opioids Does Pt have an Active Cancer Diagnosis on the Problem List?: No Quality: Stroke Does the patient have a stroke diagnosis?: No Physical Exam Vital Signs: Vital Signs: Last Vital Signs Temp 97.9 F 04/05/24 06:48 Pulse 79 04/05/24 06:48 Resp 16 04/05/24 06:48 BP 101/58 L 04/05/24 06:48 Pulse Ox 96 04/05/24 06:48 O2 Del Method Room Air 04/05/24 06:48 BMI result Body Mass Index 28.6 Const: Other: General: AO X 3, no acute distress Resp: CTA bilateral CVS: S1,S2,RRR GI: +BS, NT, no distention Skin: No rash Neuro: motor grossly intact Psych: appropriate affect DS: Data Data Completed and Pending Pending studies at discharge: Pending at discharge 04/04/24 14:06 Surgical [PTH] Routine Labs on day of discharge: Laboratory Results - last 24 hr 04/04/24 04/04/24 04/04/24 09:18 09:52 21:20 WBC 5.7 RBC 3.32 L D Hgb 9.6 L D Hct 28.7 L D MCV 86.4 MCH 28.9 MCHC 33.4 RDW 12.9 Plt Count 101 L MPV 11.4 Immature Gran % (Auto) 0.4 Neut % (Auto) 40.3 L Lymph % (Auto) 52.0 H [place] % (Auto) 5.7 Eos % (Auto) 0.7 Baso % (Auto) 0.9 Lymph # (Auto) 2.9 [place] # (Auto) 0.3 Eos # (Auto) 0.0 Baso # (Auto) 0.1 Abs Immat Gran (auto) 0.02 Absolute Neuts (auto) 2.3 Absolute Nucleated RBC 0.000 Nucleated RBC % (auto) 0.0 Smear Tech's Comments VERIFIED Hold Purple Top SEE NOTE Iron TIBC % Saturation Unsat Iron Binding Ferritin Vitamin B12 Folate Procalcitonin 0.18 Hold Red Top See Note Urine Color Urine Appearance Urine pH Ur Specific [place] Urine Protein Urine Glucose (UA) Urine Ketones Urine Blood Urine Nitrite Ur Leukocyte Esterase Urine RBC Urine WBC Urine WBC Clumps Ur Squamous Epith Cells Urine Bacteria Hyaline Casts Influenza Type A (PCR) Influenza Type B (PCR) RSV RNA Qual (PCR) SARS-CoV-2 RNA (RT-PCR) Blood Type B Positive Antibody Screen NEGATIVE 04/04/24 04/05/24 21:59 05:59 WBC 6.6 RBC 3.65 L Hgb 10.6 L Hct 31.4 L MCV 86.0 MCH 29.0 MCHC 33.8 RDW 13.0 Plt Count 108 L MPV 13.1 H Immature Gran % (Auto) Neut % (Auto) Lymph % (Auto) [place] % (Auto) Eos % (Auto) Baso % (Auto) Lymph # (Auto) [place] # (Auto) Eos # (Auto) Baso # (Auto) Abs Immat Gran (auto) Absolute Neuts (auto) Absolute Nucleated RBC 0.000 Nucleated RBC % (auto) 0.0 Smear Tech's Comments Hold Purple Top SEE NOTE Iron 20 L TIBC 187 L % Saturation 11 L Unsat Iron Binding 167 Ferritin 270 H Vitamin B12 180 L Folate 8.4 Procalcitonin Hold Red Top Urine Color Yellow Urine Appearance Clear Urine pH 7.0 Ur Specific [place] 1.020 Urine Protein Trace Urine Glucose (UA) Negative Urine Ketones >=160 Urine Blood Small (1+) H Urine Nitrite Negative Ur Leukocyte Esterase Moderate (2+) H Urine RBC 3-5 H Urine WBC >50 H Urine WBC Clumps Present Ur Squamous Epith Cells 0-2 Urine Bacteria 1+ Hyaline Casts 0-2 Influenza Type A (PCR) NEGATIVE Influenza Type B (PCR) NEGATIVE RSV RNA Qual (PCR) NEGATIVE SARS-CoV-2 RNA (RT-PCR) NEGATIVE Blood Type Antibody Screen Discharge Plan Discharge Anticipated Discharge Date/Time: 04/05/24 08:27 Patient Disposition: Home, Self-Care Discharge Diagnosis: Erosive esophagitis, peptic ulcer disease, anemia Referrals: [facility] [Primary Care Provider] - 1 Week Immanuel Miller MD [Physician] - 3 Weeks Santiago Bain MD [Physician] - 1 Week Discharge Medications: New omeprazole 40 mg capsule,delayed release(DR/EC) 40 mg PO BID Qty: 180 0RF mecobalamin (vitamin B12) 1,000 mcg tablet,chewable 1,000 mcg PO DAILY Qty: 90 1RF ferrous sulfate [FeroSul] 325 mg (65 mg iron) tablet 325 mg PO DAILY Qty: 180 0RF docusate sodium [Colace] 100 mg capsule 100 mg PO DAILY Qty: 180 0RF Continued ondansetron 4 mg tablet,disintegrating 4 mg PO Q8H PRN (Reason: nausea and vomiting) Qty: 20 0RF Discontinued naproxen 500 mg tablet 500 mg PO BID PRN (Reason: pain) Qty: 30 0RF Discharge Orders: Discharge Order (Routine); Ordered 04/05/24 Ordered By: Morris Johnson Diet: Advance to usual diet Activity on Discharge: As tolerated Stand Alone Forms: Patient Portal Discharge page Print Language: Azeri Care Plan Goals: recovery from gastric ulcer, erosive esophagitis and anemia Health Concerns: erosive esophagitis gastric ulcer vitamin B12 deficiency iron-deficiency anemia Plan of Treatment: take Prilosec 40 mg twice daily for esophagitis and gastric ulcer follow-up with Dr. Gutierres Do not take NSAIDs ([id number] pain medication), check with your pharmacist take vitamin B12 supplement for vitamin b12 deficiency take an iron supplement for iron deficiency anemia, iron can cause constipation so take colace with it Folllow up with [facility] (Dr. Bain) for abnormal finding on CT with thickening at the cervix, uterine fibroid and missing right ovary...this need further evaluation to exclude serious problems such as cancer Follow up with your primary care doctor within a week, call for appointment Assessment: see above
[2024-04-05] MEDS: Omeprazole 40 MG CAPSULE.DR PO (08:44)
--- NOTE | 2024-04-05 08:54 | PM.DS ---
DS: Providers Provider Date of Service: 04/05/24 Date of admission: 04/04/24 11:14 Primary care physician: [facility] Consults: 04/04/24 10:03 Consult to Gastroenterology Stat Consulting Provider: Immanuel Miller Reason for consultation: hematemesis, drop in hemoglobin Has provider been notified: Yes DS: Diagnosis Discharge Diagnosis (1) Acute upper gastrointestinal bleeding: Status: Acute (2) ABLA (acute blood loss anemia): Status: Acute (3) Abdominal pain: Status: Acute DS: Summary Hospital Course Hospital Course: admission hpi Chief Complaint: Vomitting with blood 38 year old female with no singificant past medical history who presents to the ED with blood tinged vomitting. She reports having intermittent daily vomitting for nearly 2 months, at times associated with blood. No specific triger, sometime has associated abdominal discomfort, headache and dizziness. Her hemoglobin has dropped from 12 to 9 over in 5 hours. She reports that her last vomitting was at home and presently has no abdominal pain. A CT of abdomen and pelvis show esophageal thickening. The CT further points to abnormal Cervix and an ultrasounds shows fibroid and absent righ ovary. She declined rectal and pelvic exam. Hospital course: Patient presented with above complaint and found to have anemia.. She underwent EGD with the following finding and recommendation by Dr. Miller STOMACH: Multiple gastric antral nodules - with central ulcerations and erosions (without high risk stigmata for bleeding). No blood seen in the upper GI tract during EGD. Source of hematemesis is likely from erosive esophagitis. Abdominal pain due to peptic uylcer disease Plan: Repeat CBC tonight and tomorrow am. Check iron profile, Vitamin B12 (added to am labs) Pt can be discharged home in the am on PO PPI twice a day if H & H remains stable without further bleeding. FU EGD in 3 to 4 months to confirm gastric ulcers have healed Above findings were reviewed with the patient (with the help of a Malagasy admissions manager rn) and relevant handouts. Repeat H/H the next day was better at 10.631, she is started on Prilosec 40 mg twice daily and to follow up with GI clinic. Iron profile shows irone deficiency (iron 20) and will give iron supplement. She advised to stop taking Naproxen and avoid all other NSAID B12 level was low at 180 (200-900) and will replace orally with Vit b12 1000 mcg daily As for finding thickened Cervix, uterine fibrioid and missing right ovary--she declined pelvic exam.. I am refering her to PATIENT SERVICE REPRESENTATIVE on outpatient basis for further work up. final diagnoses: acute blood loss anemia gastric ulcer esophagitis vitamin B12 deficiency iron deficiency anemia abnormal CT of Pelvic Time Attestation Discharge Coordination Time (in mins): 35 Quality: Safe Use of Opioids Does Pt have an Active Cancer Diagnosis on the Problem List?: No Quality: Stroke Does the patient have a stroke diagnosis?: No Physical Exam Vital Signs: Vital Signs: Last Vital Signs Temp 97.9 F 04/05/24 06:48 Pulse 79 04/05/24 06:48 Resp 16 04/05/24 06:48 BP 101/58 L 04/05/24 06:48 Pulse Ox 96 04/05/24 06:48 O2 Del Method Room Air 04/05/24 06:48 BMI result Body Mass Index 28.6 DS: Data Data Completed and Pending Pending studies at discharge: Pending at discharge 04/04/24 14:06 Surgical [PTH] Routine Labs on day of discharge: Laboratory Results - last 24 hr 04/04/24 04/04/24 04/04/24 09:18 09:52 21:20 WBC 5.7 RBC 3.32 L D Hgb 9.6 L D Hct 28.7 L D MCV 86.4 MCH 28.9 MCHC 33.4 RDW 12.9 Plt Count 101 L MPV 11.4 Immature Gran % (Auto) 0.4 Neut % (Auto) 40.3 L Lymph % (Auto) 52.0 H [place] % (Auto) 5.7 Eos % (Auto) 0.7 Baso % (Auto) 0.9 Lymph # (Auto) 2.9 [place] # (Auto) 0.3 Eos # (Auto) 0.0 Baso # (Auto) 0.1 Abs Immat Gran (auto) 0.02 Absolute Neuts (auto) 2.3 Absolute Nucleated RBC 0.000 Nucleated RBC % (auto) 0.0 Smear Tech's Comments VERIFIED Hold Purple Top SEE NOTE Iron TIBC % Saturation Unsat Iron Binding Ferritin Vitamin B12 Folate Procalcitonin 0.18 Hold Red Top See Note Urine Color Urine Appearance Urine pH Ur Specific Many Urine Protein Urine Glucose (UA) Urine Ketones Urine Blood Urine Nitrite Ur Leukocyte Esterase Urine RBC Urine WBC Urine WBC Clumps Ur Squamous Epith Cells Urine Bacteria Hyaline Casts Influenza Type A (PCR) Influenza Type B (PCR) RSV RNA Qual (PCR) SARS-CoV-2 RNA (RT-PCR) Blood Type B Positive Antibody Screen NEGATIVE 04/04/24 04/05/24 21:59 05:59 WBC 6.6 RBC 3.65 L Hgb 10.6 L Hct 31.4 L MCV 86.0 MCH 29.0 MCHC 33.8 RDW 13.0 Plt Count 108 L MPV 13.1 H Immature Gran % (Auto) Neut % (Auto) Lymph % (Auto) [place] % (Auto) Eos % (Auto) Baso % (Auto) Lymph # (Auto) [place] # (Auto) Eos # (Auto) Baso # (Auto) Abs Immat Gran (auto) Absolute Neuts (auto) Absolute Nucleated RBC 0.000 Nucleated RBC % (auto) 0.0 Smear Tech's Comments Hold Purple Top SEE NOTE Iron 20 L TIBC 187 L % Saturation 11 L Unsat Iron Binding 167 Ferritin 270 H Vitamin B12 180 L Folate 8.4 Procalcitonin Hold Red Top Urine Color Yellow Urine Appearance Clear Urine pH 7.0 Ur Specific Many 1.020 Urine Protein Trace Urine Glucose (UA) Negative Urine Ketones >=160 Urine Blood Small (1+) H Urine Nitrite Negative Ur Leukocyte Esterase Moderate (2+) H Urine RBC 3-5 H Urine WBC >50 H Urine WBC Clumps Present Ur Squamous Epith Cells 0-2 Urine Bacteria 1+ Hyaline Casts 0-2 Influenza Type A (PCR) NEGATIVE Influenza Type B (PCR) NEGATIVE RSV RNA Qual (PCR) NEGATIVE SARS-CoV-2 RNA (RT-PCR) NEGATIVE Blood Type Antibody Screen Discharge Plan Discharge Anticipated Discharge Date/Time: 04/05/24 08:27 Patient Disposition: Home, Self-Care Discharge Diagnosis: Erosive esophagitis, peptic ulcer disease, anemia Referrals: [facility] [Primary Care Provider] - 1 Week Immanuel Miller MD [Physician] - 3 Weeks Santiago Bain MD [Physician] - 1 Week Discharge Medications: New omeprazole 40 mg capsule,delayed release(DR/EC) 40 mg PO BID Qty: 180 0RF mecobalamin (vitamin B12) 1,000 mcg tablet,chewable 1,000 mcg PO DAILY Qty: 90 1RF ferrous sulfate [FeroSul] 325 mg (65 mg iron) tablet 325 mg PO DAILY Qty: 180 0RF docusate sodium [Colace] 100 mg capsule 100 mg PO DAILY Qty: 180 0RF Continued ondansetron 4 mg tablet,disintegrating 4 mg PO Q8H PRN (Reason: nausea and vomiting) Qty: 20 0RF Discontinued naproxen 500 mg tablet 500 mg PO BID PRN (Reason: pain) Qty: 30 0RF Discharge Orders: Discharge Order (Routine); Ordered 04/05/24 Ordered By: Morris Johnson Diet: Advance to usual diet Activity on Discharge: As tolerated Stand Alone Forms: Patient Portal Discharge page Print Language: Malagasy Care Plan Goals: recovery from gastric ulcer, erosive esophagitis and anemia Health Concerns: erosive esophagitis gastric ulcer vitamin B12 deficiency iron-deficiency anemia Plan of Treatment: take Prilosec 40 mg twice daily for esophagitis and gastric ulcer follow-up with Dr. Gutierres Do not take NSAIDs ([id number] pain medication), check with your pharmacist take vitamin B12 supplement for vitamin b12 deficiency take an iron supplement for iron deficiency anemia, iron can cause constipation so take colace with it Folllow up with [facility] RE[facility]ENT[facility]IVE clinic (Dr. Bain) for abnormal finding on CT with thickening at the cervix, uterine fibroid and missing right ovary...this need further evaluation to exclude serious problems such as cancer Follow up with your primary care doctor within a week, call for appointment Assessment: see above
--- NOTE | 2024-04-05 09:19 | MHC.CM.PN ---
EMR REVIEWED, CM MET W/PT VIA [employer], PT REPORTS SHE LIVES W/HER 17YO [facility]WIN DTRS, PT IS FULLY INDEP, DENIES USE OF DME/SERVICES AND REQUESTS BUS PASSES HOWEVER CM DOES LIVE IN [place] SO SHE WILL BE SET UP W/[facility] SHUTTLE FOR TRANSPORT HOME. PT VERIFIES PCP IS NILO MONCADA, TASK SENT TO CM OFFICE. PT ZAIRA BEEN EDUCATED ON AND COMPLETED A HCP NAMING HER SON KAREN MARTINEZ [facility] [phone] HER HCA AND NO ALTERNATE, COPY UPLOADED TO [facility] AND PLACED IN CHART. PT DISCHARGING TODAY HOME SELF CARE W/[facility] SHUTTLE TRANSPORT HOME.
--- NOTE | 2024-04-05 10:14 | HO.POSTANES ---
Post Anesthesia Evaluation Post Anesthesia Evaluation Date of Service: 04/04/24 Vital Signs: Vital Signs Temp Pulse Resp BP Pulse Ox O2 Del Method 04/05/24 06:48 97.9 F 79 16 101/58 L 96 Room Air 04/05/24 03:53 97.2 F 84 16 106/55 L 97 Room Air Anesthesia: Monitored Mental Status: Awake Pain Control: Satisfactory Nausea/Vomiting: None Hydration: Adequate Anesthesia-Related Issues: No Anes. Related Issues
== END 2024-04-05 11:30 | disposition home or self-care (01) | DRG 242 ==
LOC: HO.ED 09:58 → HO.EDOVER 11:18 → HO.S3 15:50
PROVIDERS: Emergency Medicine; Internal Medicine; Internal Medicine Gastroenterology; Admitting Provider Internal Medicine; Emergency Provider Emergency Medicine; PCP Internal Medicine; Visit Provider Internal Medicine
PROC: 0DJ08ZZ Inspection of Upper Intestinal Tract, Via Natural or Artificial Opening Endoscopic (ICD-10-PCS; CPT 43235; principal; 2024-04-04 13:30)
DX: K22.11 Ulcer of esophagus with bleeding (principal); I95.9 Hypotension, unspecified; K25.4 Chronic or unspecified gastric ulcer with hemorrhage; K29.51 Unspecified chronic gastritis with bleeding; D62 Acute posthemorrhagic anemia; R93.89 Abnormal findings on diagnostic imaging of other specified body structures; K44.9 Diaphragmatic hernia without obstruction or gangrene; E53.8 Deficiency of other specified B group vitamins; B96.81 Helicobacter pylori [H. pylori] as the cause of diseases classified elsewhere; E86.0 Dehydration; Z20.822 Contact with and (suspected) exposure to COVID-19; Z79.899 Other long term (current) drug therapy
CPT/HCPCS: 43239; 0241U; 36415; 74177; 76856; 80053; 81001; 81025; 82607; 82728; 82746; 83540; 83605; 83690; 84145; 85007; 85025; 85027; 86850; 86900; 86901; 87040; 87086; 88305; 88313; 88342; 99221; 99285; C9113; J1596; J2405; J2704; Q9967

== ENCOUNTER → 2024-04-04 11:14 | Outpatient (BNV) | payer MEDICAID, SELFPAY | PROVIDERS: Admitting Provider Internal Medicine; Emergency Provider Emergency Medicine; Visit Provider Internal Medicine Gastroenterology | DX: K92.2 Gastrointestinal hemorrhage, unspecified (principal); R10.9 Unspecified abdominal pain | CPT/HCPCS: 43239; 99232 ==

== ENCOUNTER → 2024-04-04 11:14 | Outpatient (BNV) | payer MEDICAID, SELFPAY | PROVIDERS: Admitting Provider Internal Medicine; Emergency Provider Emergency Medicine; Visit Provider Internal Medicine | DX: K92.2 Gastrointestinal hemorrhage, unspecified (principal); D62 Acute posthemorrhagic anemia; R10.9 Unspecified abdominal pain | CPT/HCPCS: 99223; 99239 ==

== ENCOUNTER 2024-04-10 04:39 | Observation (INO) | payer MEDICAID, SELFPAY ==
[2024-04-10] VITALS (7 sets, daily range): BP systolic 94–109; BP diastolic 49–66; PULSE 78–102; RESP 15–16; TEMP 36.1–37.9; O2SAT 94–100; BMI 29.4
--- NOTE | ~2024-04-10 | XR_ITS ---
EXAMINATION: XR CHEST CLINICAL INFORMATION: Shortness of breath COMPARISON: 04/28/2023 TECHNIQUE: Frontal view of the chest was obtained. FINDINGS: Lungs are hypoinflated. Allowing for this, no significant abnormality is noted involving the heart, lungs, mediastinum, bony thorax or soft tissues. Surgical clips are present in the gallbladder fossa. XR/XR chest 1V IMPRESSION: No acute intrathoracic disease.
--- NOTE | ~2024-04-10 | CT_ITS ---
EXAMINATION: CT ABDOMEN AND PELVIS WITH CONTRAST CLINICAL INFORMATION: Abdominal pain COMPARISON: Pelvic ultrasound and CT abdomen pelvis 04/04/2024 TECHNIQUE: Multidetector volumetric images were obtained from the superior aspect of the liver through the pubic symphysis following administration 85 mL of Omnipaque 350 intravenous contrast. Sagittal and coronal reformatted images were obtained on the technologist's workstation. Oral contrast: No This CT examination was performed using dose optimization techniques as appropriate, variously including the following: *Automated exposure control *Adjustment of mA and/or kV according to patient size (this includes techniques or standardized protocols for targeted exams where dose is matched to indication/reason for exam; i.e. extremities or head) *Use of iterative reconstruction technique DLP: 499 mGy-cm FINDINGS: LUNG BASES: The visualized lung bases are unremarkable aside from bibasilar atelectasis. LIVER, GALLBLADDER, AND BILIARY TREE: The liver is enlarged measuring 21 cm in length. Attenuation difficult to evaluate after IV contrast. No focal hepatic lesion or biliary ductal dilatation is present. Status post cholecystectomy. PANCREAS: Unremarkable. SPLEEN: Spleen is again noted to be enlarged measuring 14.3 cm. ADRENAL GLANDS: Unremarkable. KIDNEYS AND URETERS: The kidneys are normal in size, shape, and attenuation. Small area of scarring present in the right mid kidney posterolaterally (3:28). No hydronephrosis, hydroureter, or calculi seen. 2 left-sided benign Bosniak class I renal cysts are noted which require no additional imaging or follow-up. No solid renal masses are seen. BLADDER: Unremarkable. GASTROINTESTINAL TRACT: Small hiatal hernia is again seen. The small and large bowel are unremarkable. The appendix is unremarkable. ABDOMINAL WALL: No significant hernia is appreciated. LYMPH NODES: Normal. VASCULAR: Unremarkable. PELVIC VISCERA: The uterus and adnexa are unremarkable. Small amount of free fluid present in the cul-de-sac. There is a 1.7 cm benign left ovarian cyst which needs no additional follow-up. OSSEOUS STRUCTURES: Unremarkable. CT/CT abdomen pelvis w IV con IMPRESSION: 1. A cause for the patient's abdominal pain has not been found. 2. Incidental note made of hepatosplenomegaly, small hiatal hernia, cholecystectomy and small amount of free fluid in the cul-de-sac. Fleischner guidelines were followed.
--- NOTE | 2024-04-10 06:45 | ED.ABDPAIN ---
HPI - Abdominal Pain General Chief Complaint: Abdominal Pain Stated Complaint: abd pain Time Seen by Provider: 04/10/24 06:42 Source: patient Mode of arrival: ambulatory Limitations: no limitations History of Present Illness ED Provider: Kumar JOVEL HPI narrative: This is a 38-year-old female history of esophagitis, hiatal hernia, gastric nodule in ulcers, upper GI bleed presenting to the emergency department with complaints of fatigue, malaise, myalgias, abdominal pain, nausea, vomiting, dizziness, headache. Patient reports this has been going on for about a week or so, she was recently admitted into the hospital for the same symptoms. She tells me she is feeling worse. Patient has been taking medication for UTI and has had little to no relief in symptoms. Patient denies fevers, chills, blood in stool, chest pain, shortness of breath Related Data Previous Rx's ?Medication ?Instructions ?Recorded ondansetron 4 mg disintegrating 4 mg PO Q8H PRN nausea and 03/02/21 tablet vomiting #20 tabs docusate sodium 100 mg capsule 100 mg PO DAILY #180 caps 04/05/24 (Colace) ferrous sulfate 325 mg (65 mg 325 mg PO DAILY #180 tabs 04/05/24 iron) tablet (FeroSul) mecobalamin (vitamin B12) 1,000 1,000 mcg PO DAILY #90 tabs 04/05/24 mcg chewable tablet omeprazole 40 mg capsule,delayed 40 mg PO BID #180 caps 04/05/24 release amoxicillin 500 mg tablet 1,000 mg (2 x 500 mg) PO Q12H 10 04/06/24 days #40 tabs clarithromycin 500 mg tablet 500 mg PO Q12H 10 days #20 tabs 04/06/24 Allergies Allergy/AdvReac Type Severity Reaction Status Date / Time No Known Allergies Allergy Verified 04/10/24 04:51 Review of Systems Review of Systems Yes all other systems are reviewed and are negative PMFSH Past Medical History Attestation statement: The following information was validated with the patient. Source: old records reviewed and nursing notes reviewed Medical History No known health problems Social History Social History Household Members: Family Do you presently have visiting nurse or other home services: No Alcohol intake: never Patient Tobacco Use Status: Never used Tobacco Smoked in Last 30 Days: No Second Hand Smoke Exposure: No Use of substances other than those prescribed or required for medical reasons: No Advance Directives: No Advance Directives Information Provided: No Do you have a plan to hurt others: No Plan service: No Physical Exam ED Vital Signs: Vital Signs - 24 hr 04/10/24 04:48 04/10/24 11:04 Temperature 100.2 F 97.8 F Pulse Rate 102 H 78 Respiratory Rate 16 16 Blood Pressure 98/63 94/49 L Pulse Oximetry 94 95 Oxygen Delivery Method Room Air Room Air BMI result Body Mass Index 29.4 vss Appearance: Alert.? Oriented X3.? No acute distress.? Head: Normocephalic, atraumatic, no step-offs or deformities Eyes: Pupils equal, round and reactive to light.? ENT: Pharynx normal.? Neck: Normal inspection.? Neck supple.? CVS: Normal heart rate and rhythm.? Pulses normal.? Respiratory: No respiratory distress.? Breath sounds normal.? Abdomen: Soft and diffuse abdominal discomfort.? Skin: Skin warm and dry.? Normal skin color.? Normal skin turgor.? Extremities: No lower extremity edema.? No calf ttp. 5/5 strength to bilateral upper and lower extremities Back: No midline tenderness, no C-spine tenderness, full range of motion, no CVA tenderness bilaterally Neuro: Oriented X 3.? No motor deficit.? No sensory deficit. CN 2-12 intact Course Reevaluation(s) Reevaluation #1: Upon chart review it appears as though patient was in the hospital admitted on 04/04/2024 and discharged on 04/05/2024, she had an upper endoscopy with biopsies postop diagnosis of erosive esophagitis, hiatal hernia, gastric nodules in ulcers, throughout her hospital visit she was admitted with a significant drop in hemoglobin and hematocrit, she was started on Prilosec 40 mg twice daily and was told to follow up with GI. She was also told to start taking iron supplementation. Labs pending, blood cultures, lactic acid pending. Just tachycardic and febrile, this time infection suspected. Antibiotics and fluids ordered Time: 06:46 Reevaluation #2: Discussed this case with GI who recommends IV Protonix, antiemetics as needed. Will admit to the hospitalist at this time. Repeat CBC ordered. CT abdomen still plan Time: 11:42 Medical Decision Making Medical Decision Making [facility] Narrative: [phone] 38 year old female presents w/ nausea, vomiting, dizziness, headache, fatigue & malaise Pe tachycardia HR 110. Diffuse abdominal discomfort. Hx and pe concernig for UGIB and possible UTI vs viral illness versus gastric ulcer. Unlikley acute abdomen, meningitis, encephalitis. Will rule out metabolic derangments Plan- labs, urine Differential Diagnosis Differential Diagnoses: The differential diagnosis associated with the presentation includes Hx and pe concernig for UGIB and possible UTI vs viral illness versus gastric ulcer. Unlikley acute abdomen, meningitis, encephalitis. Will rule out metabolic derangments Admission/Observation Consideration of admission/observation: Escalation of care including admission/observation considered Possible Consult Healthcare Provider Management of the patient was discussed with: Hospitalist Lab Data [facility] Lab Attestation statement: I reviewed the patient's lab results. 04/10/24 09:21 04/10/24 07:42 Labs: Lab Results 04/10/24 04/10/24 04/10/24 Range/Units 07:42 09:21 10:15 WBC 11.3 H 10.6 (4.8-10.8) X10*3/uL RBC 3.99 L 3.60 L (4.20-5.50) X10*6/uL Hgb 11.5 L 10.3 L (12.0-16.0) g/dl Hct 34.6 L 31.5 L (37.0-47.0) % MCV 86.7 87.5 (80.0-98.0) fL MCH 28.8 28.6 (27.0-33.0) pg MCHC 33.2 32.7 (31.0-35.0) g/dl RDW 13.8 13.8 (11.0-16.0) % Plt Count 177 D 154 L (160-400) X10*3/uL MPV 11.8 11.7 (9.4-12.3) fL Immature Gran % (Auto) 0.3 Cancelled (0.0-0.4) % Neut % (Auto) 27.8 L Cancelled (45-73) % Lymph % (Auto) 66.2 H Cancelled (20-40) % [place] % (Auto) 4.6 Cancelled (2-11) % Eos % (Auto) 0.3 Cancelled (0-4) % Baso % (Auto) 0.8 Cancelled (0-2) % Lymph # (Auto) 7.7 H Cancelled (1.2-4.9) X10*3/uL [place] # (Auto) 0.5 Cancelled (0.1-1.2) X10*3/uL Eos # (Auto) 0.0 Cancelled (0.0-0.4) X10*3/uL Baso # (Auto) 0.1 Cancelled (0.0-0.2) X10*3/uL Abs Immat Gran (auto) 0.04 H Cancelled (0.00-0.03) X10*3/uL Absolute Neuts (auto) 3.2 Cancelled (2.0-8.3) x10*3/uL Absolute Nucleated RBC 0.000 0.000 (0.0-0.012) X10*3/uL Nucleated RBC % (auto) 0.0 0.0 (0.0-0.2) /100WBC Neutrophils % (Manual) 42 L (45-73) % Band Neutrophils % 1 L (3-5) % Lymphocytes % (Manual) 44 H (20-40) % Atypical Lymphs % (Man) 9 H (0-6) % Monocytes % (Manual) 2 (2-11) % Basophils % (Manual) 1 (0-2) % Metamyelocytes % 1 % Abs Neuts (Manual) 4.6 (2.0-8.3) X10*3/uL Lymphocytes # (Manual) 4.7 (1.2-4.9) X10*3/uL Atyp Lymphs # (Manual) 1.0 x10*3/uL Monocytes # (Manual) 0.2 (0.1-1.2) X10*3/uL Basophils # (Manual) 0.1 (0.0-0.2) X10*3/uL Metamyelocytes # 0.1 X10*3/uL Platelet Estimate NORMAL (NORMAL) Plt Morphology Comment NORMAL RBC Morphology NOTED Polychromasia 1+ (0-2) /OIF Hypochromasia 1+ (5-14) /OIF Smear Tech's Comments VERIFIED Sodium 136 (135-145) mmol/L Potassium 3.6 (3.3-5.1) mmol/L Chloride 99 (96-108) mmol/L Carbon Dioxide 29 (22-29) mmol/L Anion Gap 12 (12-20) BUN 8 L (9-16) mg/dL Creatinine 0.78 (0.5-1.4) mg/dL Estim Creat Clear Calc 90.4 Estimated GFR > 60 Random Glucose 106 (60-115) mg/dL Lactic Acid 1.0 (0.5-2.0) mmol/L Calcium 8.7 D (8.4-10.2) mg/dL Magnesium 2.5 (1.6-2.6) mg/dL Total Bilirubin 0.6 (0.0-1.0) mg/dL Direct Bilirubin 0.2 (0.0-0.5) mg/dL AST 64 H (5-31) U/L ALT 47 H (0-31) U/L Alkaline Phosphatase 72 (39-117) U/L Total Protein 7.2 (6.5-8.0) g/dL Albumin 3.2 L (3.5-5.0) g/dL Lipase 32 (8-78) U/L Urine Color Dark Yellow Urine Appearance Clear Urine pH 6.5 (5.0-9.0) Ur Specific [place] 1.025 (1.005-1.025) Urine Protein 30 (1+) H (Neg-Trace) mg/dL Urine Glucose (UA) Negative (Negative) mg/dL Urine Ketones 15 (Negative) mg/dL Urine Blood Negative (Negative) Urine Nitrite Negative (Negative) Ur Leukocyte Esterase Moderate (2+) H (Negative) Urine RBC 0-2 (0-2) /HPF Urine WBC >50 H (0-5) /HPF Ur Squamous Epith Cells 0-2 (0-2) /HPF Urine Bacteria None Seen (None Seen) Hyaline Casts 0-2 (0-2) /LPF Urine Test NEGATIVE (NEGATIVE) Independent Interpretation Interpretation: Reviewed Pelvic US from 04/04/24- US/US pelvic complete IMPRESSION: Uterine fibroids. Nonvisualization right ovary. CT abd 04/04/24- CT/CT abdomen pelvis w IV con IMPRESSION: Mild splenomegaly. Left renal cysts. Small hiatal hernia with question mild esophageal thickening. Cervix appears thickened and heterogeneous with mild stranding and small amount of free pelvic fluid. Consider pelvic ultrasound if clinically indicated. Fleischner guidelines were followed. Radiology Impression Discussion of test interpretation with radiology: I have reviewed the radiologist's reading. External Record Review External record reviewed: Inpatient record, Office record, Outpatient record, Prior outpatient labs, Prior outpatient radiology and Primary care record Chronic Conditions Patient?s care impacted by: Other (Esophagitis, hiatal hernia, gastric nodule in ulcers, upper GI bleed) Medications Administered Discontinued Medications Generic Name Dose Route Start Last Admin Trade Name Freq PRN Reason Stop Dose Admin Acetaminophen 650 mg 04/10/24 07:26 04/10/24 07:52 Acetaminophen 325 Mg Tablet PO 04/10/24 07:27 650 mg ONCE ONE Administration Sodium Chloride 2,184 mls @ 2,184 mls/hr 04/10/24 06:46 04/10/24 10:30 Ns 30 ml/kg infuse over 1 hr (2184 ml) 04/10/24 07:45 Infused IV Infusion .Q1H STA Ceftriaxone Sodium 1 gm/ 50 mls @ 100 mls/hr 04/10/24 06:46 04/10/24 09:27 Sodium Chloride IV 04/10/24 07:15 Infused ONCE ONE Infusion Iohexol 100 ml 04/10/24 10:50 04/10/24 10:50 Iohexol 350 Mg/Ml 100 Ml Infus..Btl IV 04/10/24 10:51 85 ml ONCE ONE Administration Critical Care Time Critical Care Time Critical Care Time: Yes Total Critical Care Time: 35 Attestation: I attest to this time spent taking care of the patient, obtaining history, physical, reviewing labs, imaging, speaking to my attending, specialist or hospitalist. Discharge Plan Discharge Clinical Impression: Erosive esophagitis, Nausea & vomiting Patient Disposition: Admitted As Inpatient Prescriptions: No Action amoxicillin 500 mg tablet 1,000 mg PO Q12H 10 Days Qty: 40 0RF clarithromycin 500 mg tablet 500 mg PO Q12H 10 Days Qty: 20 0RF ondansetron 4 mg tablet,disintegrating 4 mg PO Q8H PRN (Reason: nausea and vomiting) Qty: 20 0RF omeprazole 40 mg capsule,delayed release(DR/EC) 40 mg PO BID Qty: 180 0RF mecobalamin (vitamin B12) 1,000 mcg tablet,chewable 1,000 mcg PO DAILY Qty: 90 1RF ferrous sulfate [FeroSul] 325 mg (65 mg iron) tablet 325 mg PO DAILY Qty: 180 0RF docusate sodium [Colace] 100 mg capsule 100 mg PO DAILY Qty: 180 0RF Print Language: Indian
[2024-04-10] MEDS: cefTRIAXone sodium 1 GM in 0.9 % Sodium Chloride 50 ML IV (07:28)
[2024-04-10 07:51] LABS: Basophils Absolute Auto 0.1 X10*3/uL (0.0-0.2); Hematocrit 34.6 % (37.0-47.0); Hemoglobin 11.5 g/dl (12.0-16.0); Imm Gran Abs Auto 0.04 X10*3/uL (0.00-0.03); MANUAL DIFF FLAG SCAN; Mean Corpuscular HGB Conc 33.2 g/dl (31.0-35.0); Mean Corpuscular Hemoglobin 28.8 pg (27.0-33.0); Mean Corpuscular Volume 86.7 fL (80.0-98.0); Mean Platelet Volume 11.8 fL (9.4-12.3); Monocytes Absolute Auto 0.5 X10*3/uL (0.1-1.2); Platelet Count 177 X10*3/uL (160-400); Red Blood Count 3.99 X10*6/uL (4.20-5.50); Red Cell Distribution Width 13.8 % (11.0-16.0); SCAN SMEAR FLAG 1; White Blood Count 11.3 X10*3/uL (4.8-10.8)
[2024-04-10] MEDS: Acetaminophen 325 MG TABLET 650 MG PO (07:52)
[2024-04-10 07:58] LABS: Basophils Percent Auto 0.8 % (0-2); Eosinophils Percent Auto 0.3 % (0-4); Imm Gran Pct Auto 0.3 % (0.0-0.4); Lymphocytes Percent Auto 66.2 % (20-40); Monocytes Percent Auto 4.6 % (2-11); Neutrophils Absolute Auto 3.2 x10*3/uL (2.0-8.3); Neutrophils Percent Auto 27.8 % (45-73)
[2024-04-10 08:01] LABS: Lymphocytes Absolute Auto 7.7 X10*3/uL (1.2-4.9)
[2024-04-10 08:04] LABS: Alanine Aminotransferase 47 U/L (0-31); Albumin Level 3.2 g/dL (3.5-5.0); Alkaline Phosphatase 72 U/L (39-117); Aspartate Amino Transferase 64 U/L (5-31); Bilirubin Direct 0.2 mg/dL (0.0-0.5); Bilirubin Total 0.6 mg/dL (0.0-1.0); Lipase 32 U/L (8-78); Magnesium 2.5 mg/dL (1.6-2.6); Total Protein 7.2 g/dL (6.5-8.0)
[2024-04-10 08:05] LABS: Anion Gap 12 (12-20); Blood Urea Nitrogen 8 mg/dL (9-16); Calcium 8.7 mg/dL (8.4-10.2); Carbon Dioxide 29 mmol/L (22-29); Chloride 99 mmol/L (96-108); Creatinine Clr Calc Pharmacy 90.4; Estimated Glomerular Filt Rate > 60; Glucose Random 106 mg/dL (60-115); Potassium 3.6 mmol/L (3.3-5.1); Sodium 136 mmol/L (135-145)
[2024-04-10 08:16] LABS: SLIDE REVIEW VERIFIED
[2024-04-10 09:30] LABS: Hematocrit 31.5 % (37.0-47.0); Hemoglobin 10.3 g/dl (12.0-16.0); Mean Corpuscular HGB Conc 32.7 g/dl (31.0-35.0); Mean Corpuscular Hemoglobin 28.6 pg (27.0-33.0); Mean Corpuscular Volume 87.5 fL (80.0-98.0); Mean Platelet Volume 11.7 fL (9.4-12.3); Platelet Count 154 X10*3/uL (160-400); Red Cell Distribution Width 13.8 % (11.0-16.0); White Blood Count 10.6 X10*3/uL (4.8-10.8)
[2024-04-10 10:07] LABS: Atypical Lymphs Percent Manual 9 % (0-6); Band Neutrophils Percent 1 % (3-5); Basophils Abs Manual 0.1 X10*3/uL (0.0-0.2); Basophils Percent Manual 1 % (0-2); Lymphocytes Absolute Manual 4.7 X10*3/uL (1.2-4.9); Lymphocytes Percent Manual 44 % (20-40); Metamyelocytes Absolute 0.1 X10*3/uL; Metamyelocytes Percent 1 %; Monocytes Absolute Manual 0.2 X10*3/uL (0.1-1.2); Monocytes Percent Manual 2 % (2-11); Neutrophils Absolute Manual 4.6 X10*3/uL (2.0-8.3); Neutrophils Percent Manual 42 % (45-73)
[2024-04-10 10:11] LABS: Hypochromasia 1+ (5-14) /OIF; Platelet Estimate NORMAL (NORMAL); Polychromasia 1+ (0-2) /OIF; RBC Morphology NOTED
[2024-04-10 10:12] LABS: Platelet Morphology Comment NORMAL
[2024-04-10 10:27] LABS: Appearance Urine Clear; Color Urine Dark Yellow; Glucose Urine UA Negative (Negative); Leukocyte Esterase Urine Moderate (2+) (Negative); Nitrite Urine Negative (Negative); PH 6.5 (5.0-9.0); Specific Gravity - Urine 1.025 (1.005-1.025); UMIC TRIGGER UACC YES; Urine Blood Negative (Negative); Urine Ketones 15 mg/dL (Negative); Urine Protein 30 (1+) mg/dL (Neg-Trace)
[2024-04-10 10:29] LABS: UPreg QC Valid YES; Urine Pregnancy NEGATIVE (NEGATIVE)
[2024-04-10 10:30] LABS: Bacteria Urine None Seen (None Seen); Hyaline Casts Urine 0-2 /LPF (0-2); RBC Urine 0-2 /HPF (0-2); Squamous Epithelial Cell Urine 0-2 /HPF (0-2); UACC Culture Trigger YES; WBC Urine >50 /HPF (0-5)
[2024-04-10] MEDS: iohexoL 350 MG/ML 100 ML INFUS..BTL IV (10:50)
[2024-04-10] MEDS: Pantoprazole Sodium 40 MG/10 ML VIAL IVPUSH (11:52)
[2024-04-10 12:16] LABS: Hematocrit 32.1 % (37.0-47.0); Hemoglobin 10.2 g/dl (12.0-16.0); Mean Corpuscular HGB Conc 31.8 g/dl (31.0-35.0); Mean Corpuscular Hemoglobin 28.7 pg (27.0-33.0); Mean Corpuscular Volume 90.2 fL (80.0-98.0); PLT CLUMP 1; Red Blood Count 3.56 X10*6/uL (4.20-5.50); Red Cell Distribution Width 13.8 % (11.0-16.0); WBC ABN SCTR FOR CBC 1
--- NOTE | 2024-04-10 12:22 | PHA.MEDREC ---
Pharmacy Consult ? Medication Reconciliation Pharmacy has completed the medication reconciliation. Patient was Just discharged 04-04-24. Noted as a poor historian utilized claims and discharge packet.
[2024-04-10 13:28] LABS: Atypical Lymphs Percent Manual 6 % (0-6); Band Neutrophils Percent 5 % (3-5); Lymphocytes Percent Manual 49 % (20-40); Monocytes Percent Manual 12 % (2-11); Neutrophils Percent Manual 28 % (45-73)
[2024-04-10 13:30] LABS: Burr Cells 2+ (3-5) /OIF; Platelet Estimate DECREASED (NORMAL); Platelet Morphology Comment NORMAL; RBC Morphology NOTED
[2024-04-10 13:31] LABS: Atypical Lymph Absolute Manual 0.6 x10*3/uL; Lymphocytes Absolute Manual 4.5 X10*3/uL (1.2-4.9); Monocytes Absolute Manual 1.1 X10*3/uL (0.1-1.2); Platelet Count 132 X10*3/uL (160-400); Polychromasia 1+ (0-2) /OIF; White Blood Count 9.2 X10*3/uL (4.8-10.8)
--- NOTE | 2024-04-10 13:57 | PM.IMHP ---
History of Present Illness Date of Service: 04/10/24 Chief Complaint: abd pain, nausea 38-year-old woman presenting today with complaints of worsening abdominal pain, nausea, vomiting, disease, headache, general malaise and fatigue. Patient reports this has been ongoing over the last week. She was recently admitted to [facility] and had an endoscopy and was diagnosed with erosive esophagitis. Her H&H is stable on her labs are actually within acceptable limits. Her vital signs are stable. Abdominal CT was negative for any acute abnormality. In the ER she was given IV fluid, Rocephin, Tylenol, IV ppi. Plan is to place patient on observation for continued symptoms of erosive esophagitis Review of Systems Review of Systems: Denies any recent fever chills or decrease in appetite respiratory denies any shortness of breath or cough cardiovascular denied chest pain gastrointestinal denies any dysphagia abdominal pain nausea vomiting or diarrhea genitourinary denies any dysuria frequency or hematuria musculoskeletal denies any joint pain or swelling neuropsych denies any weakness or seizures all other systems reviewed are negative [facility] Medical History No known health problems Social History Household Members: Family Do you presently have visiting nurse or other home services: No Alcohol intake: never Patient Tobacco Use Status: Never used Tobacco Smoked in Last 30 Days: No Second Hand Smoke Exposure: No Use of substances other than those prescribed or required for medical reasons: No Currently Displaying Signs/Symptoms of Drug Intoxication Withdrawal: No Advance Directives: No Advance Directives Information Provided: No Do you have a plan to hurt others: No Plan service: No Meds Allergies Allergy/AdvReac Type Severity Reaction Status Date / Time No Known Allergies Allergy Verified 04/10/24 04:51 Active Medications: Current Medications Acetaminophen (Acetaminophen 325 Mg Tablet) 650 mg PO Q6H PRN PRN Reason: Pain, Mild (Pain Scale 1-3), fever or headache Calcium Carbonate (Calcium Carbonate 750 Mg Tab.Chew) 750 mg PO Q4H PRN PRN Reason: Heartburn Sodium Chloride (Ns) 1,000 mls @ 100 mls/hr IVCONT .Q10H [place] Magnesium Hydroxide (Milk Of Magnesia 30 Ml Oral.Susp) 30 ml PO DAILY PRN PRN Reason: Constipation Melatonin (Melatonin 3 Mg Tablet) 6 mg PO BEDTIME PRN PRN Reason: Insomnia Ondansetron HCl (Ondansetron Hcl 4 Mg/2 Ml Vial) 4 mg IVPUSH Q8H PRN PRN Reason: Nausea and Vomiting Pantoprazole Sodium (Pantoprazole Sodium 40 Mg/10 Ml Vial) 40 mg IVPUSH DAILY@0630 [facility] Sodium Chloride (0.9 % Sodium Chloride Flush 3 Ml Syringe) 3 ml IVFLUSH QSHIFT [facility] Home Medications ?Medication ?Instructions ?Recorded ?Confirmed ?Last Taken ?Type cyanocobalamin (vitamin B-12) 1,000 mcg sublingual DAILY 04/10/24 04/10/24 Unknown History 1,000 mcg sublingual tablet Physical Exam Vital Signs and Narrative: Vital Signs: Last Vital Signs Temp 97.8 F 04/10/24 11:04 Pulse 78 04/10/24 11:04 Resp 16 04/10/24 11:04 BP 94/49 L 04/10/24 11:04 Pulse Ox 95 04/10/24 11:04 O2 Del Method Room Air 04/10/24 11:04 BMI result Body Mass Index 29.4 Appearing in no acute distress head is normocephalic atraumatic eyes pupils are PERRLA sclera is anicteric mouth throat mucous membranes are intact and moist neck is supple no lymphadenopathy, no JVD noted lung sounds are clear to auscultation heart regular rate rhythm, clear S1, S2 positive bowel sounds, abdomen is soft, nontender neuro patient is alert x3, no focal deficits Results Labs 04/11/24 05:31 04/11/24 05:31 Labs: Laboratory Results - last 24 hr 04/10/24 04/10/24 04/10/24 07:42 09:21 10:15 MCV 86.7 87.5 MCH 28.8 28.6 MCHC 33.2 32.7 RDW 13.8 13.8 Plt Count 177 D 154 L MPV 11.8 11.7 Immature Gran % (Auto) 0.3 Cancelled Neut % (Auto) 27.8 L Cancelled Lymph % (Auto) 66.2 H Cancelled [place] % (Auto) 4.6 Cancelled Eos % (Auto) 0.3 Cancelled Baso % (Auto) 0.8 Cancelled Lymph # (Auto) 7.7 H Cancelled [place] # (Auto) 0.5 Cancelled Eos # (Auto) 0.0 Cancelled Baso # (Auto) 0.1 Cancelled Abs Immat Gran (auto) 0.04 H Cancelled Absolute Neuts (auto) 3.2 Cancelled Absolute Nucleated RBC 0.000 0.000 Nucleated RBC % (auto) 0.0 0.0 Neutrophils % (Manual) 42 L Band Neutrophils % 1 L Lymphocytes % (Manual) 44 H Atypical Lymphs % (Man) 9 H Monocytes % (Manual) 2 Basophils % (Manual) 1 Metamyelocytes % 1 Abs Neuts (Manual) 4.6 Lymphocytes # (Manual) 4.7 Atyp Lymphs # (Manual) 1.0 Monocytes # (Manual) 0.2 Basophils # (Manual) 0.1 Metamyelocytes # 0.1 Platelet Estimate NORMAL Plt Morphology Comment NORMAL RBC Morphology NOTED Polychromasia 1+ (0-2) Hypochromasia 1+ (5-14) [place] Cells Smear Tech's Comments VERIFIED Anion Gap 12 Estim Creat Clear Calc 90.4 Estimated GFR > 60 Random Glucose 106 Lactic Acid 1.0 Calcium 8.7 D Magnesium 2.5 Total Bilirubin 0.6 Direct Bilirubin 0.2 AST 64 H ALT 47 H Alkaline Phosphatase 72 Total Protein 7.2 Albumin 3.2 L Lipase 32 Urine Color Dark Yellow Urine Appearance Clear Urine pH 6.5 Ur Specific [place] 1.025 Urine Protein 30 (1+) H Urine Glucose (UA) Negative Urine Ketones 15 Urine Blood Negative Urine Nitrite Negative Ur Leukocyte Esterase Moderate (2+) H Urine RBC 0-2 Urine WBC >50 H Ur Squamous Epith Cells 0-2 Urine Bacteria None Seen Hyaline Casts 0-2 Urine Test NEGATIVE 04/10/24 11:51 MCV 90.2 MCH 28.7 MCHC 31.8 RDW 13.8 Plt Count 132 L MPV 12.0 Immature Gran % (Auto) Cancelled Neut % (Auto) Cancelled Lymph % (Auto) Cancelled [place] % (Auto) Cancelled Eos % (Auto) Cancelled Baso % (Auto) Cancelled Lymph # (Auto) Cancelled [place] # (Auto) Cancelled Eos # (Auto) Cancelled Baso # (Auto) Cancelled Abs Immat Gran (auto) Cancelled Absolute Neuts (auto) Cancelled Absolute Nucleated RBC 0.000 Nucleated RBC % (auto) 0.0 Neutrophils % (Manual) 28 L Band Neutrophils % 5 Lymphocytes % (Manual) 49 H Atypical Lymphs % (Man) 6 Monocytes % (Manual) 12 H Basophils % (Manual) Metamyelocytes % Abs Neuts (Manual) 3.0 Lymphocytes # (Manual) 4.5 Atyp Lymphs # (Manual) 0.6 Monocytes # (Manual) 1.1 Basophils # (Manual) Metamyelocytes # Platelet Estimate DECREASED Plt Morphology Comment NORMAL RBC Morphology NOTED Polychromasia 1+ (0-2) Hypochromasia [place] Cells 2+ (3-5) Smear Tech's Comments Anion Gap Estim Creat Clear Calc Estimated GFR Random Glucose Lactic Acid Calcium Magnesium Total Bilirubin Direct Bilirubin AST ALT Alkaline Phosphatase Total Protein Albumin Lipase Urine Color Urine Appearance Urine pH Ur Specific [place] Urine Protein Urine Glucose (UA) Urine Ketones Urine Blood Urine Nitrite Ur Leukocyte Esterase Urine RBC Urine WBC Ur Squamous Epith Cells Urine Bacteria Hyaline Casts Urine Test Imaging Radiologist's Impressions: Impressions Chest X-Ray 04/10/24 08:18 IMPRESSION: No acute intrathoracic disease. Abdomen/Pelvis CT 04/10/24 10:53 IMPRESSION: 1. A cause for the patient's abdominal pain has not been found. 2. Incidental note made of hepatosplenomegaly, small hiatal hernia, cholecystectomy and small amount of free fluid in the cul-de-sac. Fleischner guidelines were followed. Assessment and Plan (1) Nausea & vomiting: Status: Acute Plan 38 year old women admitted with possible GI bleed vs gastritis . She had an EGD on 04/04/24 which found hiatal hernia and erosive esophagitis Abdominal pain with nausea likely from peptic ulcer disease possible esophagitis vs gastroenteritis IV PPI GI consult antiemetics clear liquid diet IV fluids Iron def anemia stable HH, above tx threshold Iron 20 continue iron supplementation DVT prophylaxis with SCD boots Full code obs Quality Stroke Does the patient have a stroke diagnosis?: No VTE Prior VTE?: No VTE Risk Level:: Medical - moderate - high VTE Device Contraindication: N/A - Device Ordered VTE Drug Contraindication: Treatment Not Indicated
[2024-04-10] MEDS: 0.9 % Sodium Chloride 1,000 ML 100 ML IVCONT ×2 (14:21→23:48)
[2024-04-11] VITALS: BP 99/61; PULSE 98; RESP 16; TEMP 37.2; O2SAT 96
[2024-04-11 04:00] VITALS: BP 104/62; PULSE 93; RESP 16; TEMP 36.4; O2SAT 94
[2024-04-11] MEDS: Pantoprazole Sodium 40 MG/10 ML VIAL IVPUSH (05:29)
[2024-04-11 07:06] LABS: Basophils Absolute Auto 0.1 X10*3/uL (0.0-0.2); Basophils Percent Auto 0.6 % (0-2); Eosinophils Percent Auto 0.4 % (0-4); Hematocrit 31.3 % (37.0-47.0); Hemoglobin 10.3 g/dl (12.0-16.0); Imm Gran Abs Auto 0.03 X10*3/uL (0.00-0.03); Imm Gran Pct Auto 0.3 % (0.0-0.4); Lymphocytes Percent Auto 71.3 % (20-40); MANUAL DIFF FLAG SCAN; Mean Corpuscular HGB Conc 32.9 g/dl (31.0-35.0); Mean Corpuscular Hemoglobin 28.7 pg (27.0-33.0); Mean Corpuscular Volume 87.2 fL (80.0-98.0); Mean Platelet Volume 12.5 fL (9.4-12.3); Monocytes Absolute Auto 0.4 X10*3/uL (0.1-1.2); Monocytes Percent Auto 4.6 % (2-11); Neutrophils Absolute Auto 2.2 x10*3/uL (2.0-8.3); Neutrophils Percent Auto 22.8 % (45-73); Platelet Count 171 X10*3/uL (160-400); Red Blood Count 3.59 X10*6/uL (4.20-5.50); Red Cell Distribution Width 13.9 % (11.0-16.0); SCAN SMEAR FLAG 1; White Blood Count 9.6 X10*3/uL (4.8-10.8)
[2024-04-11 07:13] LABS: Lymphocytes Absolute Auto 6.8 X10*3/uL (1.2-4.9)
[2024-04-11 07:24] LABS: Anion Gap 12 (12-20); Blood Urea Nitrogen 4 mg/dL (9-16); Calcium 7.7 mg/dL (8.4-10.2); Carbon Dioxide 24 mmol/L (22-29); Chloride 103 mmol/L (96-108); Creatinine Clr Calc Pharmacy 102.3; Estimated Glomerular Filt Rate > 60; Glucose Random 83 mg/dL (60-115); Potassium 3.2 mmol/L (3.3-5.1); Sodium 136 mmol/L (135-145)
[2024-04-11 07:32] VITALS: BP 99/62; PULSE 97; RESP 16; TEMP 37; O2SAT 95
[2024-04-11] MEDS: Sucralfate 1 GM TABLET PO (07:40)
[2024-04-11 07:45] LABS: SLIDE REVIEW VERIFIED
--- NOTE | 2024-04-11 08:04 | PM.DS ---
DS: Providers Provider Date of Service: 04/11/24 Date of admission: 04/10/24 13:44 Primary care physician: Unknown Physician Consults: 04/10/24 13:47 Consult to Gastroenterology Routine Consulting Provider: Immanuel Miller Reason for consultation: gi bleed DS: Diagnosis Discharge Diagnosis (1) Nausea & vomiting: Status: Acute DS: Summary Hospital Course Hospital Course: History and physical as per admitting provider. 38-year-old woman presenting today with complaints of worsening abdominal pain, nausea, vomiting, disease, headache, general malaise and fatigue. Patient reports this has been ongoing over the last week. She was recently admitted to [facility] and had an endoscopy and was diagnosed with erosive esophagitis. Her H&H is stable on her labs are actually within acceptable limits. Her vital signs are stable. Abdominal CT was negative for any acute abnormality. In the ER she was given IV fluid, Rocephin, Tylenol, IV ppi. Plan is to place patient on observation for continued symptoms of erosive esophagitis 38-year-old woman treated for nausea and vomiting and epigastric pain. Patient was recently diagnosed with erosive esophagitis. She was seen and evaluated by Gastroenterology who recommended no further workup at this time. Patient is to continue her PPI and was started on Carafate. Patient is to follow a bland diet for the next few days to a week and avoid heavy foods and drink plenty of fluids. She may follow-up with Gastroenterology outpatient as needed. Iron-deficiency anemia. Continue iron supplementation Time Attestation Discharge Coordination Time (in mins): 30 Quality: Safe Use of Opioids Does Pt have an Active Cancer Diagnosis on the Problem List?: No Quality: Stroke Does the patient have a stroke diagnosis?: No Physical Exam Vital Signs: Vital Signs: Last Vital Signs Temp 98.6 F 04/11/24 07:32 Pulse 97 04/11/24 07:32 Resp 16 04/11/24 07:32 BP 99/62 04/11/24 07:32 Pulse Ox 95 04/11/24 07:32 O2 Del Method Room Air 04/11/24 07:32 BMI result Body Mass Index 29.4 Appearing in no acute distress head is normocephalic atraumatic eyes pupils are PERRLA sclera is anicteric mouth throat mucous membranes are intact and moist neck is supple no lymphadenopathy, no JVD noted lung sounds are clear to auscultation heart regular rate rhythm, clear S1, S2 positive bowel sounds, abdomen is soft, nontender neuro patient is alert x3, no focal deficits DS: Data Data Completed and Pending Labs on day of discharge: Laboratory Results - last 24 hr 04/10/24 04/10/24 04/10/24 07:42 09:21 10:15 WBC 11.3 H 10.6 RBC 3.99 L 3.60 L Hgb 11.5 L 10.3 L Hct 34.6 L 31.5 L MCV 86.7 87.5 MCH 28.8 28.6 MCHC 33.2 32.7 RDW 13.8 13.8 Plt Count 177 D 154 L MPV 11.8 11.7 Immature Gran % (Auto) 0.3 Cancelled Neut % (Auto) 27.8 L Cancelled Lymph % (Auto) 66.2 H Cancelled [place] % (Auto) 4.6 Cancelled Eos % (Auto) 0.3 Cancelled Baso % (Auto) 0.8 Cancelled Lymph # (Auto) 7.7 H Cancelled [place] # (Auto) 0.5 Cancelled Eos # (Auto) 0.0 Cancelled Baso # (Auto) 0.1 Cancelled Abs Immat Gran (auto) 0.04 H Cancelled Absolute Neuts (auto) 3.2 Cancelled Absolute Nucleated RBC 0.000 0.000 Nucleated RBC % (auto) 0.0 0.0 Neutrophils % (Manual) 42 L Band Neutrophils % 1 L Lymphocytes % (Manual) 44 H Atypical Lymphs % (Man) 9 H Monocytes % (Manual) 2 Basophils % (Manual) 1 Metamyelocytes % 1 Abs Neuts (Manual) 4.6 Lymphocytes # (Manual) 4.7 Atyp Lymphs # (Manual) 1.0 Monocytes # (Manual) 0.2 Basophils # (Manual) 0.1 Metamyelocytes # 0.1 Platelet Estimate NORMAL Plt Morphology Comment NORMAL RBC Morphology NOTED Polychromasia 1+ (0-2) Hypochromasia 1+ (5-14) Chelly Cells Smear Tech's Comments VERIFIED Sodium 136 Potassium 3.6 Chloride 99 Carbon Dioxide 29 Anion Gap 12 BUN 8 L Creatinine 0.78 Estim Creat Clear Calc 90.4 Estimated GFR > 60 Random Glucose 106 Calcium 8.7 D Magnesium 2.5 Total Bilirubin 0.6 Direct Bilirubin 0.2 AST 64 H ALT 47 H Alkaline Phosphatase 72 Total Protein 7.2 Albumin 3.2 L Lipase 32 Urine Color Dark Yellow Urine Appearance Clear Urine pH 6.5 Ur Specific [place] 1.025 Urine Protein 30 (1+) H Urine Glucose (UA) Negative Urine Ketones 15 Urine Blood Negative Urine Nitrite Negative Ur Leukocyte Esterase Moderate (2+) H Urine RBC 0-2 Urine WBC >50 H Ur Squamous Epith Cells 0-2 Urine Bacteria None Seen Hyaline Casts 0-2 Urine Test NEGATIVE 04/10/24 04/11/24 11:51 05:31 WBC 9.2 9.6 RBC 3.56 L 3.59 L Hgb 10.2 L 10.3 L Hct 32.1 L 31.3 L MCV 90.2 87.2 MCH 28.7 28.7 MCHC 31.8 32.9 RDW 13.8 13.9 Plt Count 132 L 171 D MPV 12.0 12.5 H Immature Gran % (Auto) Cancelled 0.3 Neut % (Auto) Cancelled 22.8 L Lymph % (Auto) Cancelled 71.3 H [place] % (Auto) Cancelled 4.6 Eos % (Auto) Cancelled 0.4 Baso % (Auto) Cancelled 0.6 Lymph # (Auto) Cancelled 6.8 H [place] # (Auto) Cancelled 0.4 Eos # (Auto) Cancelled 0.0 Baso # (Auto) Cancelled 0.1 Abs Immat Gran (auto) Cancelled 0.03 Absolute Neuts (auto) Cancelled 2.2 Absolute Nucleated RBC 0.000 0.000 Nucleated RBC % (auto) 0.0 0.0 Neutrophils % (Manual) 28 L Band Neutrophils % 5 Lymphocytes % (Manual) 49 H Atypical Lymphs % (Man) 6 Monocytes % (Manual) 12 H Basophils % (Manual) Metamyelocytes % Abs Neuts (Manual) 3.0 Lymphocytes # (Manual) 4.5 Atyp Lymphs # (Manual) 0.6 Monocytes # (Manual) 1.1 Basophils # (Manual) Metamyelocytes # Platelet Estimate DECREASED Plt Morphology Comment NORMAL RBC Morphology NOTED Polychromasia 1+ (0-2) Hypochromasia [place] Cells 2+ (3-5) Smear Tech's Comments VERIFIED Sodium 136 Potassium 3.2 L Chloride 103 Carbon Dioxide 24 Anion Gap 12 BUN 4 L Creatinine 0.69 Estim Creat Clear Calc 102.3 Estimated GFR > 60 Random Glucose 83 Calcium 7.7 L D Magnesium Total Bilirubin Direct Bilirubin AST ALT Alkaline Phosphatase Total Protein Albumin Lipase Urine Color Urine Appearance Urine pH Ur Specific [place] Urine Protein Urine Glucose (UA) Urine Ketones Urine Blood Urine Nitrite Ur Leukocyte Esterase Urine RBC Urine WBC Ur Squamous Epith Cells Urine Bacteria Hyaline Casts Urine Test Discharge Plan Discharge Anticipated Discharge Date/Time: 04/11/24 08:00 Patient Disposition: Home, Self-Care Discharge Diagnosis: Nausea and vomiting Referrals: Immanuel Miller MD [Physician] - 1 Week Discharge Medications: New sucralfate 1 gram Tablet 1 g PO BIDAC Qty: 180 0RF Continued ondansetron 4 mg tablet,disintegrating 4 mg PO Q8H PRN (Reason: nausea and vomiting) Qty: 20 0RF omeprazole 40 mg capsule,delayed release(DR/EC) 40 mg PO BID Qty: 180 0RF ferrous sulfate [FeroSul] 325 mg (65 mg iron) tablet 325 mg PO DAILY Qty: 180 0RF docusate sodium [Colace] 100 mg capsule 100 mg PO DAILY Qty: 180 0RF cyanocobalamin (vitamin B-12) 1,000 mcg tablet, sublingual 1,000 mcg sublingual DAILY Discharge Orders: Discharge Order (Routine); Ordered 04/11/24 Ordered By: Akilah Ogden Diet: [place] food for 1 week Activity on Discharge: As tolerated Stand Alone Forms: Patient Portal Discharge page Print Language: Turkish Care Plan Goals: If needed you can follow-up with a terminal system operator if he continued to have symptoms of abdominal pain or nausea and vomiting You have been started on a new medication called Carafate, please take as prescribed Health Concerns: Nausea and vomiting Plan of Treatment: Follow-up with primary care provider as needed Take all medications as prescribed Assessment: See discharge summary Patient Instructions: Corrosive Esophagitis (GEN)
--- NOTE | 2024-04-11 08:47 | MHC.CM.PN ---
[facility] DELIVERED PT LIVES WITH ADULT CHILDREN. INDEPENDENT WITH MOBILITY. PT DECLINES HCP AT THIS TIME. PCP AT [facility]. DP: PT HAS BEEN MEDICALLY CLEARED FOR DC HOME, NO SERVICES. TRANSPORT VIA [facility] FOR 10 AM. RN AWARE
== END 2024-04-11 09:32 | disposition home or self-care (01) ==
LOC: HO.ED 11:43 → HO.EDOVER 13:53 → HO.S3 14:48
PROVIDERS: Emergency Medicine; Physician Assistant; Admitting Provider Nurse Practitioner Acute Care; Emergency Provider Emergency Medicine; PCP Internal Medicine; Visit Provider Nurse Practitioner Acute Care
DX: R11.2 Nausea with vomiting, unspecified (principal); K22.10 Ulcer of esophagus without bleeding; K44.9 Diaphragmatic hernia without obstruction or gangrene; M79.10 Myalgia, unspecified site; R42 Dizziness and giddiness; R51.9 Headache, unspecified; R10.9 Unspecified abdominal pain; D50.9 Iron deficiency anemia, unspecified; Z79.899 Other long term (current) drug therapy
CPT/HCPCS: 36415; 71045; 74177; 80048; 80076; 81001; 81025; 83605; 83690; 83735; 85007; 85025; 85027; 87040; 87086; 96361; 96365; 96366; 96375; 96376; 99221; 99285; J0696; J2470; Q9967

== ENCOUNTER → 2024-04-10 13:44 | Outpatient (BNV) | payer MEDICAID, SELFPAY | PROVIDERS: Admitting Provider Nurse Practitioner Acute Care; Emergency Provider Emergency Medicine; Visit Provider Nurse Practitioner Acute Care | DX: R11.2 Nausea with vomiting, unspecified (principal) | CPT/HCPCS: 99222; 99239 ==

== ENCOUNTER 2024-06-08 14:47 | Outpatient (REF) | payer MEDICAID, SELFPAY ==
[2024-06-08 16:31] LABS: MANUAL DIFF FLAG NO
[2024-06-08 16:35] LABS: Basophils Percent Auto 0.5 % (0-2); Eosinophils Absolute Auto 0.1 X10*3/uL (0.0-0.4); Eosinophils Percent Auto 0.7 % (0-4); Hematocrit 38.7 % (37.0-47.0); Hemoglobin 12.4 g/dl (12.0-16.0); Imm Gran Abs Auto 0.02 X10*3/uL (0.00-0.03); Imm Gran Pct Auto 0.2 % (0.0-0.4); Lymphocytes Absolute Auto 4.3 X10*3/uL (1.2-4.9); Lymphocytes Percent Auto 48.6 % (20-40); Mean Corpuscular Hemoglobin 28.4 pg (27.0-33.0); Mean Corpuscular Volume 88.6 fL (80.0-98.0); Mean Platelet Volume 12.7 fL (9.4-12.3); Monocytes Absolute Auto 0.6 X10*3/uL (0.1-1.2); Monocytes Percent Auto 6.7 % (2-11); Neutrophils Absolute Auto 3.8 x10*3/uL (2.0-8.3); Neutrophils Percent Auto 43.3 % (45-73); Platelet Count 216 X10*3/uL (160-400); Red Blood Count 4.37 X10*6/uL (4.20-5.50); Red Cell Distribution Width 12.9 % (11.0-16.0); White Blood Count 8.8 X10*3/uL (4.8-10.8)
[2024-06-08 16:58] LABS: Alanine Aminotransferase 18 U/L (0-31); Albumin Level 4.3 g/dL (3.5-5.0); Alkaline Phosphatase 84 U/L (39-117); Anion Gap 11 (12-20); Aspartate Amino Transferase 18 U/L (5-31); Bilirubin Total 0.3 mg/dL (0.0-1.0); Blood Urea Nitrogen 10 mg/dL (9-16); Calcium 9.9 mg/dL (8.4-10.2); Carbon Dioxide 25 mmol/L (22-29); Chloride 105 mmol/L (96-108); Cholesterol 177 mg/dL (<200); Estimated Glomerular Filt Rate > 60; Glucose Random 91 mg/dL (60-115); HDL Cholesterol 43 mg/dL (>40); Iron 59 mcg/dL (30-160); LDL Cholesterol Calculated 109 mg/dL (<100); Percent Iron Saturation 18 % (15-50); Sodium 137 mmol/L (135-145); Total Iron Binding Capacity 333 mcg/dL (228-428); Total Protein 8.3 g/dL (6.5-8.0); Triglycerides 128 mg/dL (<150); Unsaturated Iron Binding 274 ug/dL
[2024-06-08 17:15] LABS: TSH reflex Free T4 1.41 uIU/mL (0.32-4.0)
[2024-06-08 17:29] LABS: Folate 8.1 ng/mL (> or = 4.0); Vitamin B12 355 pg/mL (200-900)
[2024-06-08 20:47] LABS: Reflex LDLD? No
[2024-06-09 08:14] LABS: Estimated Average Glucose 97 mg/dL
[2024-06-09 09:33] LABS: HBS Num1 190.32 mIU/mL (0-7.99); HBc Num1 0.32 S/CO (0.00-0.79); HBsAGNum1 0.27 S/CO (0.00-0.99); HIV AB/AG Nonreactive (Nonreactive); HIV Num 1 0.06 S/CO (0.00-0.99); Hepatitis A Antibody IgM 0.15 Index (0-0.79); Hepatitis B Core Antibody Nonreactive (Nonreactive); Hepatitis B Surface Antigen Negative (Negative); ~HepC Num1 0.26 S/CO (0.00-0.79); ~Hepatitis A Antibody IgM Nonreactive (Nonreactive); ~Hepatitis B Surface Antibody REACTIVE (Nonreactive); ~Hepatitis C Antibody Nonreactive (Nonreactive)
== END 2024-06-08 14:48 | disposition home or self-care (01) ==
LOC: HO.HHCL 14:47
PROVIDERS: Visit Provider Internal Medicine
DX: R53.83 Other fatigue (principal)
CPT/HCPCS: 36415; 80053; 80061; 82607; 82746; 83036; 83540; 84443; 85025; 86704; 86706; 86709; 86803; 87340; 87389

== ENCOUNTER 2024-08-25 15:16 | Emergency (ER) | payer MEDICAID, SELFPAY ==
[2024-08-25 15:26] VITALS: BP 108/70; PULSE 89; RESP 18; TEMP 36.8; O2SAT 98; BMI 27.1
--- NOTE | 2024-08-25 15:29 | ECG_ITS ---
Test Reason : cp Blood Pressure : / mmHG Vent. Rate : 090 BPM Atrial Rate : 090 BPM P-R Int : 110 ms QRS Dur : 072 ms QT Int : 360 ms P-R-T Axes : 053 018 024 degrees QTc Int : 440 ms Sinus rhythm with short [place] Otherwise normal ECG When compared with ECG of 28-APR-2023 14:36, ST no longer depressed in Anterior leads Nonspecific T wave abnormality, improved in Inferior leads T wave inversion no longer evident in Anterolateral leads Referred By: Generic ED Physician Electronically Signed By:Mil Bello
--- NOTE | 2024-08-25 15:50 | ED.GENADULT ---
HPI - General Adult General Chief complaint: General Medical Stated complaint: SICK FOR A FEW DAYS Time Seen by Provider: 08/25/24 15:49 Source: patient Mode of arrival: EMS Limitations: no limitations History of Present Illness ED Provider: ismael VILLA narrative: Patient history of gastritis ran out for omeprazole and sucralfate 2 days ago now complaining epigastric pain radiating to the epigastric area no nausea no vomiting pain is burning in nature similar to that in the past Related Data Home Medications ?Medication ?Instructions ?Recorded ?Confirmed cyanocobalamin (vitamin B-12) 1,000 mcg sublingual DAILY 04/10/24 04/10/24 1,000 mcg sublingual tablet Previous Rx's ?Medication ?Instructions ?Recorded ondansetron 4 mg disintegrating 4 mg PO Q8H PRN nausea and 03/02/21 tablet vomiting #20 tabs docusate sodium 100 mg capsule 100 mg PO DAILY #180 caps 04/05/24 (Colace) ferrous sulfate 325 mg (65 mg 325 mg PO DAILY #180 tabs 04/05/24 iron) tablet (FeroSul) omeprazole 40 mg capsule,delayed 40 mg PO BID #180 caps 04/05/24 release sucralfate 1 gram tablet 1 g PO BIDAC #180 tabs 04/11/24 omeprazole 40 mg capsule,delayed 40 mg PO DAILY #90 caps 08/25/24 release sucralfate 1 gram tablet 1 g PO TID #270 tabs 08/25/24 Allergies Allergy/AdvReac Type Severity Reaction Status Date / Time No Known Allergies Allergy Verified 08/25/24 15:28 Review of Systems Review of Systems: Yes all other systems are reviewed and are negative PMFSH Past Medical History Medical History Erosive esophagitis No known health problems Social History Social History Household Members: Family Do you presently have visiting nurse or other home services: No Alcohol intake: never Patient Tobacco Use Status: Never used Tobacco Smoked in Last 30 Days: No Second Hand Smoke Exposure: No Use of substances other than those prescribed or required for medical reasons: No Advance Directives: No Advance Directives Information Provided: No service: No Physical Exam ED Vital Signs: Vital Signs - 24 hr 08/25/24 15:26 08/25/24 16:49 Temperature 98.3 F 98.3 F Pulse Rate 89 90 Respiratory Rate 18 18 Blood Pressure 108/70 114/67 Pulse Oximetry 98 98 Oxygen Delivery Method Room Air Room Air BMI result Body Mass Index 27.1 Appearance: Alert. Oriented X3. No acute distress. Eyes: No pallor or icterus ENT: Pharynx normal. Oral Mucosa moist Neck: Normal inspection. Neck supple. CVS: Normal heart rate and rhythm. Pulses normal. Respiratory: No respiratory distress. Equal air entry bilateral, Abdomen: Soft and epigastric tenderness+ Bowel sounds are present, no mass palpable, no CVA tenderness Skin: Skin warm and dry. Normal skin color. Normal skin turgor. Extremities: No lower extremity edema. No calf tenderness Neuro: Oriented X 3. Medications Administered Discontinued Medications Generic Name Dose Route Start Last Admin Trade Name Freq PRN Reason Stop Dose Admin Al Hydroxide/Mg Hydroxide 30 ml 08/25/24 16:21 08/25/24 16:32 Magnesium Hydrox/Alum Hydrox 30 Ml Oral.Susp PO 08/25/24 16:22 30 ml ONCE ONE Administration Lidocaine HCl 15 ml 08/25/24 16:21 08/25/24 16:32 Lidocaine Hcl Viscous 2 % 15 Ml Solution MUCOUS MEM 08/25/24 16:22 15 ml ONCE ONE Administration Medical Decision Making Medical Decision Making [facility] Narrative: Patient with chronic gastritis previous CT scan in 05/03 were negative for acute on Prilosec and sucralfate which she ran out 2 days ago comes here with epigastric pain clinically gastritis EKG without any ischemic changes discharge patient home advised to follow up with radio engineering teacher Differential Diagnosis Differential Diagnoses: The differential diagnosis associated with the presentation includes Gastritis /peptic ulcer disease/ gallstones Independent Interpretation I performed an independent interpretation of an: EKG Interpretation: Normal sinus rhythm heart rate 90 beats per minute normal interval normal no acute STT wave changes no acute ischemia Discharge Plan Discharge Clinical Impression: Chronic GERD Patient Disposition: Home, Self-Care Instructions: Gastroesophageal Reflux Disease (ED) Additional Instructions: Avoid fried and spicy foods Take medication as prescribed Follow with your PCP/radio engineering teacher Prescriptions: New omeprazole 40 mg capsule,delayed release(DR/EC) 40 mg PO DAILY Qty: 90 0RF sucralfate 1 gram tablet 1 g PO TID Qty: 270 0RF No Action ondansetron 4 mg tablet,disintegrating 4 mg PO Q8H PRN (Reason: nausea and vomiting) Qty: 20 0RF omeprazole 40 mg capsule,delayed release(DR/EC) 40 mg PO BID Qty: 180 0RF ferrous sulfate [FeroSul] 325 mg (65 mg iron) tablet 325 mg PO DAILY Qty: 180 0RF docusate sodium [Colace] 100 mg capsule 100 mg PO DAILY Qty: 180 0RF cyanocobalamin (vitamin B-12) 1,000 mcg tablet, sublingual 1,000 mcg sublingual DAILY sucralfate 1 gram Tablet 1 g PO BIDAC Qty: 180 0RF Referrals: Roseann Nugent MD [Physician] - 2 weeks Interventions: ED Discharge Assessment Last Done: 08/25/24 17:01 Print Language: Icelandic
[2024-08-25] MEDS: Magnesium Hydrox/Alum Hydrox 30 ML ORAL.SUSP PO (16:32)
[2024-08-25] MEDS: Lidocaine HCl Viscous 2 % 15 ML SOLUTION MUCOUS MEM (16:32)
[2024-08-25 16:49] VITALS: BP 114/67; PULSE 90; RESP 18; TEMP 36.8; O2SAT 98
[2024-08-25 17:01] VITALS: BP 114/67; PULSE 90; RESP 18; TEMP 36.8; O2SAT 98
== END 2024-08-25 17:02 | disposition home or self-care (01) ==
PROVIDERS: Emergency Provider Internal Medicine; PCP Internal Medicine
DX: K21.9 Gastro-esophageal reflux disease without esophagitis (principal); R10.13 Epigastric pain; R07.9 Chest pain, unspecified
CPT/HCPCS: 93005; 99284

== ENCOUNTER → 2024-08-25 15:29 | Outpatient (BNV) | payer MEDICAID, SELFPAY | PROVIDERS: Emergency Provider Internal Medicine; PCP Internal Medicine; Visit Provider Internal Medicine Cardiovascular Disease | DX: I49.8 Other specified cardiac arrhythmias (principal) | CPT/HCPCS: 93010 ==

== ENCOUNTER 2025-03-16 10:25 | Outpatient (REF) | payer MEDICAID, SELFPAY ==
--- OUTSIDE RECORDS SUMMARY | 2025-03-16 11:12 | XMS_ITS | Patient Health Record ---
Author Organization [facility] Address [address] [place] [address] Care Team Providers Care Hvac Operations Technician Name Role Phone Lluvia Robledo M.D. Primary Care Provider UnaLoi West Unavailable [phone] Reason For Referral No Information Plan Of Treatment No Information Insurance Providers Payer Name Payer Address Payer Phone Subscriber Number Group Number Insured Name Patient Relationship to Insured Coverage Start Date Coverage End Date MEDICAID OF [facility] [address] [place] [address] [id number] SHARI DAVIS Self - patient is the insured
[2025-03-16 11:17] LABS: MANUAL DIFF FLAG NO
[2025-03-16 11:30] LABS: Basophils Absolute Auto 0.1 X10*3/uL (0.0-0.2); Basophils Percent Auto 0.6 % (0-2); Eosinophils Absolute Auto 0.1 X10*3/uL (0.0-0.4); Eosinophils Percent Auto 1.5 % (0-4); Hematocrit 40.3 % (37.0-47.0); Hemoglobin 13.1 g/dl (12.0-16.0); Imm Gran Abs Auto 0.01 X10*3/uL (0.00-0.03); Imm Gran Pct Auto 0.1 % (0.0-0.4); Lymphocytes Absolute Auto 2.9 X10*3/uL (1.2-4.9); Lymphocytes Percent Auto 33.4 % (20-40); Mean Corpuscular HGB Conc 32.5 g/dl (31.0-35.0); Mean Corpuscular Hemoglobin 28.9 pg (27.0-33.0); Mean Corpuscular Volume 88.8 fL (80.0-98.0); Mean Platelet Volume 12.3 fL (9.4-12.3); Monocytes Absolute Auto 0.7 X10*3/uL (0.1-1.2); Monocytes Percent Auto 8.3 % (2-11); Neutrophils Absolute Auto 4.9 x10*3/uL (2.0-8.3); Neutrophils Percent Auto 56.1 % (45-73); Platelet Count 206 X10*3/uL (160-400); Red Blood Count 4.54 X10*6/uL (4.20-5.50); Red Cell Distribution Width 12.5 % (11.0-16.0); White Blood Count 8.7 X10*3/uL (4.8-10.8)
[2025-03-16 14:25] LABS: TSH reflex Free T4 1.16 uIU/mL (0.32-4.0)
== END 2025-03-16 10:26 | disposition home or self-care (01) ==
LOC: HO.HHCL 10:25
PROVIDERS: Visit Provider General Practice
DX: J02.9 Acute pharyngitis, unspecified (principal)
CPT/HCPCS: 36415; 84443; 85025

== ENCOUNTER 2025-03-17 17:51 | Emergency (ER) | payer MEDICAID, SELFPAY ==
--- NOTE | ~2025-03-17 | XR_ITS ---
CLINICAL HISTORY: cough --- Additional Notes or Special Instructions: bloodwork 1830 DG 1 view chest x-ray Comparison: None Findings: The lungs are clear. Normal size heart. No acute fracture. IMPRESSION: 1. No acute findings. This document has been electronically signed by: Amparo Luke MD on 03/17/2025 19:41:51
[2025-03-17 18:00] VITALS: BP 117/81; PULSE 86; O2SAT 99
[2025-03-17 18:15] VITALS: BP 113/67; PULSE 91; RESP 18; TEMP 36.9; O2SAT 98; BMI 29.6
[2025-03-17 18:16] VITALS: BP 113/71; PULSE 96; RESP 15; TEMP 36.6; O2SAT 99; BMI 29.6
[2025-03-17 18:38] LABS: MANUAL DIFF FLAG NO
[2025-03-17 18:39] LABS: Basophils Percent Auto 0.5 % (0-2); Eosinophils Absolute Auto 0.3 X10*3/uL (0.0-0.4); Eosinophils Percent Auto 3.2 % (0-4); Hematocrit 37.9 % (37.0-47.0); Hemoglobin 12.8 g/dl (12.0-16.0); Imm Gran Abs Auto 0.02 X10*3/uL (0.00-0.03); Imm Gran Pct Auto 0.2 % (0.0-0.4); Lymphocytes Absolute Auto 3.1 X10*3/uL (1.2-4.9); Mean Corpuscular HGB Conc 33.8 g/dl (31.0-35.0); Mean Corpuscular Hemoglobin 29.4 pg (27.0-33.0); Mean Corpuscular Volume 86.9 fL (80.0-98.0); Mean Platelet Volume 11.4 fL (9.4-12.3); Monocytes Absolute Auto 0.8 X10*3/uL (0.1-1.2); Monocytes Percent Auto 10.3 % (2-11); Neutrophils Absolute Auto 3.9 x10*3/uL (2.0-8.3); Neutrophils Percent Auto 47.8 % (45-73); Platelet Count 198 X10*3/uL (160-400); Red Blood Count 4.36 X10*6/uL (4.20-5.50); Red Cell Distribution Width 12.5 % (11.0-16.0); White Blood Count 8.1 X10*3/uL (4.8-10.8)
[2025-03-17] MEDS: ondansetron HCL 4 MG/2 ML VIAL IVPUSH (18:54)
[2025-03-17] MEDS: 0.9 % Sodium Chloride 1,000 ML 999 ML IV (18:54)
[2025-03-17 18:58] LABS: IDNOW Serial# 58CA691E; Strep A Nucleic Acid Negative (Negative)
[2025-03-17 19:00] LABS: Alanine Aminotransferase 24 U/L (0-31); Albumin Level 4.4 g/dL (3.5-5.0); Alkaline Phosphatase 97 U/L (39-117); Anion Gap 8 (12-20); Aspartate Amino Transferase 25 U/L (5-31); Bilirubin Total 0.3 mg/dL (0.0-1.0); Blood Urea Nitrogen 13 mg/dL (9-16); Calcium 9.5 mg/dL (8.4-10.2); Carbon Dioxide 28 mmol/L (22-29); Chloride 105 mmol/L (96-108); Creatinine Clr Calc Pharmacy 78.8; Estimated Glomerular Filt Rate > 60; Glucose Random 102 mg/dL (60-115); Lipase 32 U/L (8-78); Magnesium 2.2 mg/dL (1.6-2.6); Potassium 3.5 mmol/L (3.3-5.1); Sodium 137 mmol/L (135-145); Total Protein 8.1 g/dL (6.5-8.0)
[2025-03-17 19:10] LABS: HCG Quantitative < 2 mIU/mL
[2025-03-17 19:28] LABS: Influenza A PCR NEGATIVE (Negative); Influenza B PCR NEGATIVE (Negative); Resp Syncy Virus RNA Qual PCR NEGATIVE (Negative); SARS COV2 PCR INHOUSE NEGATIVE (Negative)
--- NOTE | 2025-03-17 19:46 | ED.GENADULT ---
HPI - General Adult General Chief complaint: Nausea/Vomiting/Diarrhea Stated complaint: vomiting Time Seen by Provider: 03/17/25 18:05 Source: patient Limitations: language barrier History of Present Illness ED Provider: Surekha Carmichael PA-C HPI narrative: 39-year-old female presents with cough and cold symptoms x 3 days. Associated dry repetitive cough, sore throat with nausea. Associated chills, no objective fever. Denies sick contacts with similar symptoms. No active vomiting, diarrhea. No abdominal pain. Related Data Home Medications ?Medication ?Instructions ?Recorded ?Confirmed cyanocobalamin (vitamin B-12) 1,000 mcg sublingual DAILY 04/10/24 04/10/24 1,000 mcg sublingual tablet Previous Rx's ?Medication ?Instructions ?Recorded ondansetron 4 mg disintegrating 4 mg PO Q8H PRN nausea and 03/02/21 tablet vomiting #20 tabs docusate sodium 100 mg capsule 100 mg PO DAILY #180 caps 04/05/24 (Colace) ferrous sulfate 325 mg (65 mg 325 mg PO DAILY #180 tabs 04/05/24 iron) tablet (FeroSul) omeprazole 40 mg capsule,delayed 40 mg PO BID #180 caps 04/05/24 release sucralfate 1 gram tablet 1 g PO BIDAC #180 tabs 04/11/24 omeprazole 40 mg capsule,delayed 40 mg PO DAILY #90 caps 08/25/24 release sucralfate 1 gram tablet 1 g PO TID #270 tabs 08/25/24 ondansetron HCl 4 mg tablet 4 mg PO Q8H PRN nausea and 03/17/25 vomiting #10 tabs Allergies Allergy/AdvReac Type Severity Reaction Status Date / Time No Known Allergies Allergy Verified 03/17/25 18:19 Review of Systems Review of Systems: Yes all other systems are reviewed and are negative Constitutional: Constitutional: Reports chills, Denies fatigue and Denies fever(s) Cardiovascular: Cardiovascular: Denies chest pain and Denies dyspnea Respiratory: Respiratory: Denies chest congestion, Reports cough, Denies dyspnea and Denies wheezing Gastrointestinal: Gastrointestinal: Denies abdominal pain, Denies diarrhea, Reports nausea and Denies vomiting Endocrine: Endocrine: Denies fatigue Allergic/Immunologic: Allergic/Immunologic: Denies wheezing PMFSH Past Medical History Attestation statement: The following information was validated with the patient. Medical History Erosive esophagitis No known health problems Social History Social History Household Members: Family Do you presently have visiting nurse or other home services: No Alcohol intake: never Patient Tobacco Use Status: Never used Tobacco Smoked in Last 30 Days: No Second Hand Smoke Exposure: No Use of substances other than those prescribed or required for medical reasons: No Do you have a plan to hurt others: No Plan Patient : No service: No Physical Exam ED Vital Signs: Vital Signs - 24 hr 03/17/25 18:15 03/17/25 18:16 Temperature 98.5 F 97.9 F Pulse Rate 91 96 Respiratory Rate 18 15 Blood Pressure 113/67 113/71 Pulse Oximetry 98 99 Oxygen Delivery Method Room Air Room Air BMI result Body Mass Index 29.6 Const Other: Alert Orientation/consciousness: patient oriented x3 HENMT Other: Opiate erythematous, without exudate uvula midline, no trismus no drooling no swelling inferior to the jawline no sublingual fluctuance Resp Effort & Inspection: normal respiratory effort Cardio Other: Normal peripheral perfusion Skin Other: Warm dry no rash Neuro General: patient oriented x3, gait normal, no focal motor deficits and CN's II-XI intact bilaterally Psych Other: Cooperative Medications Administered Discontinued Medications Generic Name Dose Route Start Last Admin Trade Name Freq PRN Reason Stop Dose Admin Sodium Chloride 1,000 mls @ 999 mls/hr 03/17/25 18:15 03/17/25 19:56 Ns IV 03/17/25 19:15 Infused .Q1H1M DIXON Infusion Ondansetron HCl 4 mg 03/17/25 18:06 03/17/25 18:54 Ondansetron Hcl 4 Mg/2 Ml Vial IVPUSH 03/17/25 18:07 4 mg ONCE ONE Administration Medical Decision Making Medical Decision Making MDM Narrative: 39-year-old female presents with cough and cold symptoms x 3 days. Associated dry repetitive cough, sore throat with nausea. Associated chills, no objective fever. Denies sick contacts with similar symptoms. No active vomiting, diarrhea. No abdominal pain. No chronic issues History: Per patient I have considered the following differential diagnoses: Viral syndrome, pneumonia, viral gastroenteritis, strep pharyngitis, RPA, SENIOR RELATIONSHIP MANAGER, upper GI bleed, lower GI bleed Plan: Patient here with numerous complaints. After her initial assessment, she is explaining that she is vomiting blood and having blood from her rectum, both bright red blood. Symptoms going on for a week. I explained to the patient that her blood counts are stable, that she needs to follow up with primary care for GI consult for colonoscopy and endoscopy, she verbalizes understanding. Screening labs were already ordered from triage, I added on a chest x-ray due to her cough, a viral panel and strep panel ordered as well. We will be giving the patient IV fluid and antiemetic. To note there was no evidence of RPA or SENIOR RELATIONSHIP MANAGER on exam. She has not vomited since arrival, her symptoms are highly subjective. I have independently reviewed the following tests: Labs: No leukocytosis, not anemic, no electrolyte abnormality, viral panel negative, strep screen negative Chest x-ray:Findings: The lungs are clear. Normal size heart. No acute fracture. IMPRESSION: 1. No acute findings. Lab Data 03/17/25 18:33 03/17/25 18:33 Labs: Lab Results 03/17/25 03/17/25 Range/Units 18:33 18:44 WBC 8.1 (4.8-10.8) X10*3/uL RBC 4.36 (4.20-5.50) X10*6/uL Hgb 12.8 (12.0-16.0) g/dl Hct 37.9 (37.0-47.0) % MCV 86.9 (80.0-98.0) fL MCH 29.4 (27.0-33.0) pg MCHC 33.8 (31.0-35.0) g/dl RDW 12.5 (11.0-16.0) % Plt Count 198 (160-400) X10*3/uL MPV 11.4 (9.4-12.3) fL Immature Gran % (Auto) 0.2 (0.0-0.4) % Neut % (Auto) 47.8 (45-73) % Lymph % (Auto) 38.0 (20-40) % Brantley % (Auto) 10.3 (2-11) % Eos % (Auto) 3.2 (0-4) % Baso % (Auto) 0.5 (0-2) % Lymph # (Auto) 3.1 (1.2-4.9) X10*3/uL Brantley # (Auto) 0.8 (0.1-1.2) X10*3/uL Eos # (Auto) 0.3 (0.0-0.4) X10*3/uL Baso # (Auto) 0.0 (0.0-0.2) X10*3/uL Abs Immat Gran (auto) 0.02 (0.00-0.03) X10*3/uL Absolute Neuts (auto) 3.9 (2.0-8.3) x10*3/uL Absolute Nucleated RBC 0.000 (0.0-0.012) X10*3/uL Nucleated RBC % (auto) 0.0 (0.0-0.2) /100WBC Sodium 137 (135-145) mmol/L Potassium 3.5 (3.3-5.1) mmol/L Chloride 105 (96-108) mmol/L Carbon Dioxide 28 (22-29) mmol/L Anion Gap 8 L (12-20) BUN 13 (9-16) mg/dL Creatinine 0.96 (0.5-1.4) mg/dL Estim Creat Clear Calc 78.8 Estimated GFR > 60 Random Glucose 102 (60-115) mg/dL Calcium 9.5 (8.4-10.2) mg/dL Magnesium 2.2 (1.6-2.6) mg/dL Total Bilirubin 0.3 (0.0-1.0) mg/dL AST 25 (5-31) U/L ALT 24 (0-31) U/L Alkaline Phosphatase 97 (39-117) U/L Total Protein 8.1 H (6.5-8.0) g/dL Albumin 4.4 (3.5-5.0) g/dL Lipase 32 (8-78) U/L Beta HCG, Quant < 2 mIU/mL Influenza Type A (PCR) NEGATIVE (Negative) Influenza Type B (PCR) NEGATIVE (Negative) RSV RNA Qual (PCR) NEGATIVE (Negative) SARS-CoV-2 RNA (RT-PCR) NEGATIVE (Negative) S. pyogenes GrpA GRANT Negative (Negative) Discharge Plan Discharge Clinical Impression: Acute viral syndrome, Pharyngitis, GI (gastrointestinal bleed) Patient Disposition: Home, Self-Care Instructions: Pharyngitis (ED), Viral Syndrome (ED) Additional Instructions: All of your labs were completely normal, you were screened for influenza RSV and COVID, the viral panel was negative. You were also tested for strep throat that was negative as well. The chest x-ray is clear you do not have pneumonia. You have a virus causing your symptoms. See home care instructions. You can use warm saltwater gargles to help with throat pain. For your nausea, uses Zofran as needed. For the cough, you can purchase an [id number] cough suppressant, I suggested Delsym. In regard to the report of upper and lower GI bleeding, you need to have discussion with your primary care provider, they will refer you to gastroenterology for potential endoscopy and colonoscopy. Call to make a follow up appointment. Prescriptions: New ondansetron HCl 4 mg tablet 4 mg PO Q8H PRN (Reason: nausea and vomiting) Qty: 10 0RF No Action ondansetron 4 mg tablet,disintegrating 4 mg PO Q8H PRN (Reason: nausea and vomiting) Qty: 20 0RF omeprazole 40 mg capsule,delayed release(DR/EC) 40 mg PO BID Qty: 180 0RF ferrous sulfate [FeroSul] 325 mg (65 mg iron) tablet 325 mg PO DAILY Qty: 180 0RF docusate sodium [Colace] 100 mg capsule 100 mg PO DAILY Qty: 180 0RF cyanocobalamin (vitamin B-12) 1,000 mcg tablet, sublingual 1,000 mcg sublingual DAILY sucralfate 1 gram Tablet 1 g PO BIDAC Qty: 180 0RF omeprazole 40 mg capsule,delayed release(DR/EC) 40 mg PO DAILY Qty: 90 0RF sucralfate 1 gram tablet 1 g PO TID Qty: 270 0RF Print Language: Urdu
[2025-03-17 20:36] VITALS: BP 113/71; PULSE 96; RESP 15; TEMP 36.6; O2SAT 99
== END 2025-03-17 20:38 | disposition home or self-care (01) ==
PROVIDERS: Physician Assistant Medical; Emergency Provider Emergency Medicine
DX: B34.9 Viral infection, unspecified (principal); K62.5 Hemorrhage of anus and rectum; K92.0 Hematemesis; R05.9 Cough, unspecified; J02.9 Acute pharyngitis, unspecified
CPT/HCPCS: 0241U; 36415; 71045; 80053; 83690; 83735; 84702; 85025; 87651; 96361; 96374; 99284; J2405

== ENCOUNTER → 2025-03-17 18:20 | Outpatient (BNV) | payer MEDICAID, SELFPAY | PROVIDERS: Emergency Provider Emergency Medicine; Visit Provider Radiology Diagnostic Radiology | DX: R05.9 Cough, unspecified (principal) | CPT/HCPCS: 71045 ==

== ENCOUNTER 2025-03-19 17:46 | Outpatient (REF) | payer MEDICAID, SELFPAY | END 2025-03-19 17:47 | disposition home or self-care (01) | LOC: HO.HHCLNP 17:46 | PROVIDERS: Visit Provider Registered Nurse | DX: R30.0 Dysuria (principal) | CPT/HCPCS: 87086 ==

== ENCOUNTER 2025-06-01 18:47 | Emergency (ER) | payer MEDICAID, SELFPAY ==
--- NOTE | ~2025-06-01 | XR_ITS ---
CLINICAL HISTORY: cough 2 view chest x-ray Comparison: CR - XR CHEST 1V - 03/17/25 18:54 EDT Findings: The lungs are clear. Heart size is normal. Osseous structures unremarkable. Cholecystectomy clips in the right upper quadrant. IMPRESSION: 1. No acute findings. This document has been electronically signed by: Anson Arango MD on 06/01/2025 20:16:50
--- NOTE | 2025-06-01 19:24 | ED.GENADULT ---
HPI - General Adult General Chief complaint: General Medical Stated complaint: cold symptoms Time Seen by Provider: 06/01/25 21:04 Source: patient Mode of arrival: ambulatory Limitations: no limitations History of Present Illness ED Provider: Dr. Nataliia Ojeda HPI narrative: Patient comes to the emergency room complaining of 1 week of headache, sore throat, bilateral ear pain but more so on the right. Patient states that she has not taken any medications at home throughout the week including Tylenol and Motrin. In the triage note, says that patient has been vomiting. However, when I asked the patient, she reports nausea only Related Data Home Medications ?Medication ?Instructions ?Recorded ?Confirmed cyanocobalamin (vitamin B-12) 1,000 mcg sublingual DAILY 04/10/24 04/10/24 1,000 mcg sublingual tablet Previous Rx's ?Medication ?Instructions ?Recorded ondansetron 4 mg disintegrating 4 mg PO Q8H PRN nausea and 03/02/21 tablet vomiting #20 tabs docusate sodium 100 mg capsule 100 mg PO DAILY #180 caps 04/05/24 (Colace) ferrous sulfate 325 mg (65 mg 325 mg PO DAILY #180 tabs 04/05/24 iron) tablet (FeroSul) omeprazole 40 mg capsule,delayed 40 mg PO BID #180 caps 04/05/24 release sucralfate 1 gram tablet 1 g PO BIDAC #180 tabs 04/11/24 omeprazole 40 mg capsule,delayed 40 mg PO DAILY #90 caps 08/25/24 release sucralfate 1 gram tablet 1 g PO TID #270 tabs 08/25/24 ondansetron HCl 4 mg tablet 4 mg PO Q8H PRN nausea and 03/17/25 vomiting #10 tabs amoxicillin 500 mg-potassium 1 tab PO BID #14 tabs 06/01/25 clavulanate 125 mg tablet (Augmentin) ibuprofen 600 mg tablet 600 mg PO Q8H PRN fever or pain 06/01/25 #20 tabs Allergies Allergy/AdvReac Type Severity Reaction Status Date / Time No Known Allergies Allergy Verified 06/01/25 19:29 Review of Systems Review of Systems: Constitutional : No Weight loss, No Fever, complaining of Chills, No Night Sweats, complaining of fatigue and generalized malaise ENT/Mouth : No Hearing loss, complaining of bilateral Ear Pain, No Nasal Congestion, No Sinus Pain, No Hoarseness, complaining of sore throat, No Rhinorrhea, No Swallowing Difficulty Eyes: No Eye Pain, No Swelling, No Redness, No Foreign Body, No Discharge, No Vision Changes Cardiovascular : No Chest Pain, No SOB, No Dyspnea on Exertion, No Orthopnea, No Edema, No Palpitations Respiratory : Complaining of cough, No Sputum, No Wheezing, No Smoke Exposure, No Dyspnea Gastrointestinal : Complaining of Nausea, No Vomiting, No Diarrhea, No Constipation, No abdominal Pain, No Hematochezia, No Melena Genitourinary : no irregular bleeding, No Dysuria, No Urinary Frequency, No Hematuria, No Urinary Incontinence, No Urgency, No Flank Pain, No Urinary Flow Changes, No Hesitancy Musculoskeletal : No joint pain, No Myalgias, No Joint Swelling Skin : No Skin Lesions, No rash Neuro : No Weakness, No Numbness, No Paresthesias, No Loss of Consciousness, No Dizziness, No Headache Psych : No Anxiety/Panic, No Depression, No SI/HI/AH/VH, No Social Issues, Heme/Lymph: No Bruising, No Bleeding,No Lymphadenopathy Endocrine : No Polyuria, No Polydipsia, No Temperature Intolerance PMFSH Past Medical History Medical History Erosive esophagitis No known health problems Surgical History (Updated 04/04/25 @ 14:22 by Lluvia Evangelista) History of esophagogastroduodenoscopy (EGD) Social History Social History Household Members: Family Do you presently have visiting nurse or other home services: No Alcohol intake: never Patient Tobacco Use Status: Never used Tobacco Smoked in Last 30 Days: No Second Hand Smoke Exposure: No Use of substances other than those prescribed or required for medical reasons: No Advance Directives: No Advance Directives Information Provided: No Patient : No service: No Physical Exam ED Exam Exam: Appearance: Alert. Oriented X3. No acute distress. Eyes: Pupils equal, round and reactive to light. ENT: Pharynx erythematous, no visualized abscesses, normal palatine tonsils, uvula midline. Bilateral ears have whitish wet discharge, right ear canal is erythematous, bilateral tympanic membranes intact Neck: Normal inspection. Neck supple. No lymph nodes noted. No crepitus CVS: Normal heart rate and rhythm. Pulses normal. Normal S1 and S2 Respiratory: No respiratory distress. Breath sounds normal. No Wheezing. No rales Abdomen: Soft and nontender. No rigidity. No distention. Skin: Skin warm and dry. Normal skin color. Normal skin turgor. Extremities: No lower extremity edema. No Lacerations. No Rash Neuro: Oriented X 3. No motor deficit. No sensory deficit. Moving all extremities. No slurred speech. CN 2 through 12 grossly intact Psych: calm, cooperative, normal affect Vital Signs: Vital Signs - 24 hr 06/01/25 19:28 06/01/25 20:03 Temperature 99.4 F 98.9 F Pulse Rate 114 H 102 H Respiratory Rate 18 20 Blood Pressure 110/82 125/81 Pulse Oximetry 97 98 Oxygen Delivery Method Room Air Room Air BMI result Body Mass Index 30.1 Course Course Course Narrative: RME, this is a rapid medical exam performed by Gary Carlos please refer to primary provider for complete H&P- 39 year old female presents for evaluation of headaches, congestion, sore throat, bilateral ear pain and nausea. She has an associated cough. Plan for viral swabs and chest x-ray Medical Decision Making Medical Decision Making [facility] Narrative: Patient's serology negative for influenza RSV and COVID and strep On physical exam, patient did have otitis media on the right ear. Patient was given the 1st dose of ibuprofen and Augmentin in the emergency room Patient has not reported any episodes of vomiting here in the emergency room. Differential Diagnosis Differential Diagnoses: The differential diagnosis associated with the presentation includes (Otitis media, influenza, RSV, COVID, strep pharyngitis, viral URI) Lab Data [facility] Lab Attestation statement: I reviewed the patient's lab results. Labs: Lab Results 06/01/25 Range/Units 20:17 COVID-19 ([place]) Negative (Negative) COVID-19 Clin Com See Note Influenza Type A (GRANT) Negative (Negative) Influenza Type B (GRANT) Negative (Negative) Influenza A & B Note See Note S. pyogenes GrpA GRANT Negative (Negative) Independent Interpretation I performed an independent interpretation of an: Plain X-Ray Radiology Impression Discussion of test interpretation with radiology: I have reviewed the radiologist's reading. Radiologist Impression: The lungs are clear. Heart size is normal. Osseous structures unremarkable. Cholecystectomy clips in the right upper quadrant. IMPRESSION: 1. No acute findings. Discharge Plan Discharge Clinical Impression: Otitis, URI, acute Patient Disposition: Home, Self-Care Instructions: Ear Infection (ED), Upper Respiratory Infection (ED) Additional Instructions: Please follow-up with your primary care physician tomorrow. If you have any worsening or new symptoms, please return to the emergency room or call 911 Prescriptions: New amoxicillin-pot clavulanate [Augmentin] 500-125 mg tablet 1 tab PO BID Qty: 14 0RF ibuprofen 600 mg tablet 600 mg PO Q8H PRN (Reason: fever or pain) Qty: 20 0RF No Action ondansetron 4 mg tablet,disintegrating 4 mg PO Q8H PRN (Reason: nausea and vomiting) Qty: 20 0RF omeprazole 40 mg capsule,delayed release(DR/EC) 40 mg PO BID Qty: 180 0RF ferrous sulfate [FeroSul] 325 mg (65 mg iron) tablet 325 mg PO DAILY Qty: 180 0RF docusate sodium [Colace] 100 mg capsule 100 mg PO DAILY Qty: 180 0RF cyanocobalamin (vitamin B-12) 1,000 mcg tablet, sublingual 1,000 mcg sublingual DAILY sucralfate 1 gram Tablet 1 g PO BIDAC Qty: 180 0RF omeprazole 40 mg capsule,delayed release(DR/EC) 40 mg PO DAILY Qty: 90 0RF sucralfate 1 gram tablet 1 g PO TID Qty: 270 0RF ondansetron HCl 4 mg tablet 4 mg PO Q8H PRN (Reason: nausea and vomiting) Qty: 10 0RF Print Language: Algerian
[2025-06-01 19:28] VITALS: BP 110/82; PULSE 114; RESP 18; TEMP 37.4; O2SAT 97; BMI 30.1
[2025-06-01 20:03] VITALS: BP 125/81; PULSE 102; RESP 20; TEMP 37.2; O2SAT 98
--- OUTSIDE RECORDS SUMMARY | 2025-06-01 20:39 | XMS_ITS | Encounter Summary ---
Author Organization [facility] Address [address] [place] [address] Care Team Providers Care Sales Store Checker Name Role Phone Lluvia Guevara MD Primary Care Provide r Encounter Details Date Type Department Care Team (Late st Contact Info) Description 12/10/2022 Telephone [facility] [address] [place] [address] Akilah Dockery, RN Social History Tobacco Use Types Packs/Day Years Used Date Smoking Tobacco: Never Assessed Depression Answer Date Recorded Patient Health Questionnaire-9 Score 14 08/15/2024 Patient Health Questionnaire-9 Score 14 08/15/2024 Last PHQ-9: Questionnaire Data Not on file 1 10/15/2023 Housing Stability Answer Date Recorded What is your housing situation today? I have housing today, but I am worried about losing housing in the future 07/28/[address] you li ve. Do you have problems with any of the following? I am not sure 07/28/2024 Food Insecurity Answer Date Recorded Within the past 12 months, y ou worried that your food would run out before you got money to buy more: Often true 07/28/2024 Within the past 12 months,th e food you bought just didn't last and you didn't have enough money to get more: Often true Transportation Answer Date Recorded In the past 12 months, has l ack of transportation kept you from medical appts, meetings, work or from getting things needed for daily living? Yes, it has kept me from non-medical meetings, work, or getting things that I need 07/28/2024 Utilities Answer Date Recorded In the past 12 months, has t he electric, gas, oil or water company threatened to shut off services in your home? No 07/28/2024 Depression Answer Date Recorded Patient Health Questionnaire-2 Score 5 08/15/2024 Internet Access Answer Date Recorded Internet Access Q1 I am not sure 05/29/2025 Internet Access Q2 Not on file 05/29/2025 Comments Unknown Sex and Gender Information Value Date Recorded Sex Assigned at Female 08/10/2022 10:36 AM EDT Legal Sex Female 10:36 AM EDT Gender Identity Female 08/10/2022 10:36 AM EDT Sexual Orientation Straight 08/10/2022 10 :36 AM EDT COVID-19 Exposure Response Date Recorded In the last 10 days, have yo u been in contact with someone who was confirmed or suspected to have Coronavirus/COVID-19? No / Unsure 04/15/2023 8:52 AM EDT documented as of this encounter Functional Status * Over the past 2 weeks, how often have you been bothered by any of the following problems? Question Answer Date of Assessment Author Patient Health Questionnaire -2 Score 5 08/15/2024 8:42 AM Beverly Davis * If you checked off any problems on this questionnaire so far, Question Answer Date of Assessment Author How difficult have these problems made it for you to do your work, take care of things at home, or get along with other people? Somewhat difficult 08/15/2024 8:42 AM Mely Davis * Over the last 2 weeks, how often have you been bothered by any of the following problems? Question Answer Date of Assessment Author Feeling nervous, anxious, or on edge 2 08/15/2024 8:42 AM Beverly Davis ctrufus Not being able to stop or control worrying 1 08/15/2024 8:42 AM Beverly Davis Worrying too much about different things 0 08/15/2024 8:42 AM Beverly Davis Trouble relaxing 0 08/15/2024 8:42 AM Mely Guzman Being so restless that it is hard to sit still 0 08/15/2024 8:42 AM Beverly Davis Becoming easily annoyed or irritable 0 08/15/2024 8:42 AM Beverly Davis Feeling afraid as if somethi ng awful might happen 0 08/15/2024 8:42 AM Beverly Davis BANDAR-7 Total Score 3 08/15/2024 8:42 AM Mely Davis * Over the past 2 weeks, how often have you been bothered by any of the following problems? Question Answer Date of Assessment Author Little interest or pleasure in doing things More than half the days 08/15/2024 8:42 AM Mely Davis Feeling down, depressed, or hopeless Nearly every day 08/15/2024 8:42 AM Mely Davis Trouble falling or staying asleep, or sleeping too much Nearly every day 08/15/2024 8:42 AM Mely Davis Feeling tired or having little energy Nearly every day 08/15/2024 8:42 AM Mely Davis Poor appetite or overeating More than half the days 08/15/2024 8:42 AM Mely Davis Feeling bad about yourself - or that you are a failure or have let yourself or your family down Not at all 08/15/2024 8:42 AM Mely Davis Trouble concentrating on things, such as reading the newspaper or watching television Several days 08/15/2024 8:42 AM Mely Davis Moving or speaking so slowly that other people could have noticed? Or the opposite - being so fidgety or restless that you have been moving around a lot more than usual. Not at all 08/15/2024 8:42 AM Mely Davis Thoughts that you would be better off or hurting yourself in some way Not at all 08/15/2024 8:42 AM Mely Davis Patient Health Questionnaire-9 Score 14 08/15/2024 8:42 AM Mely Davis documented as of this encounter Plan of Treatment Not on file documented as of this encounter Visit Diagnoses Not on filedocumented in this encounter Care Teams Sales Store Checker Relationship Specialty Start Date End Date Lluvia Guevara MD [address] [place] [address] PCP - General Family Medicine 11/20/19 documented as of this encounter
--- OUTSIDE RECORDS SUMMARY | 2025-06-01 20:39 | XMS_ITS | Patient Health Record ---
Author Organization [facility] Address [address] [place] [address] Care Team Providers Care Baker Helper Name Role Phone Lluvia Robledo M.D. Primary Care Provider UnaLoi West Unavailable [phone] Reason For Referral No Information Plan Of Treatment No Information Insurance Providers Payer Name Payer Address Payer Phone Subscriber Number Group Number Insured Name Patient Relationship to Insured Coverage Start Date Coverage End Date MEDICAID OF [facility] [address] [place] [address] [id number] SHARI DAVIS Self - patient is the insured
[2025-06-01 20:43] LABS: IDNOW Serial# 6674DD1D
[2025-06-01 20:44] LABS: COVID-19 Test Negative (Negative); IDNOW Serial# 08D9AD1C; IDNOW Serial# 55D5AD1C; Influenza B2 Negative (Negative); Strep A Nucleic Acid Negative (Negative)
[2025-06-01 22:01] VITALS: BP 125/81; PULSE 102; RESP 20; TEMP 37.2; O2SAT 98
== END 2025-06-01 22:02 | disposition home or self-care (01) ==
PROVIDERS: Physician Assistant; Emergency Provider Emergency Medicine
DX: H66.91 Otitis media, unspecified, right ear (principal); J06.9 Acute upper respiratory infection, unspecified
CPT/HCPCS: 71046; 87502; 87635; 87651; 99283; 99284

== ENCOUNTER → 2025-06-01 19:27 | Outpatient (BNV) | payer MEDICAID, SELFPAY | PROVIDERS: Visit Provider Student in an Organized Health Care Education/Training Program | DX: R05.9 Cough, unspecified (principal) | CPT/HCPCS: 71046 ==

== ENCOUNTER 2025-06-14 10:20 | Outpatient (REF) | payer MEDICAID, SELFPAY ==
--- OUTSIDE RECORDS SUMMARY | 2023-12-21 10:40 | XMS_ITS ---
Author Organization [facility] Address [address] [place] [id number] Care Team Providers Care Senior Military Analyst Name Role Phone Lluvia Robledo M.D. Primary Care Provider Loi Clark [phone] REASON FOR VISIT Patient presents today for epigastric pain Encounters Encounter Location Date Provider Diagnosis [facility] [address] [place] [id number] 12/21/2023 Loi Sherwood Plan Of Treatment No Information Progress Notes * SHARI DAVISDOB: 5 (39 yo F)Acc No.[id number]:12/21/2023 Progress Notes Patient: SHARI MAHER Provider: Jennifer Sherwood MD :[id number] A ge:38 Y S ex:Female Date:12/21/2023 Address:[address] [place], [place] [id number] Pcp:Lluvia Robledo M.D. Subjective: * Chief Complaints: * 1 . Patient presents today for epigastric pain. * Medical History: Objective: * Vitals: Assessment: Plan: * Treatment: * * The named appointment provid er may or may not be the originator of this progress note, and it is not deemed complete until electronically signed by the appointment provider. Sign off status: Pending * Provider: Jennifer Sherwood MD Date: 12/21/2023 Generated for Julio Cesar bolanos/Butch/Maidaitting on: 0 06/14/2025 09:20 AM EDT
--- NOTE | ~2025-06-14 | XR_ITS ---
EXAMINATION: XR CHEST CLINICAL INFORMATION: cough and fever x 3 weeks COMPARISON: June 01, 2025 TECHNIQUE: 2 views of the chest were obtained. FINDINGS: No significant abnormality is noted involving the heart, lungs, mediastinum, bony thorax or soft tissues. XR/XR chest 2V IMPRESSION: No acute disease Electronically signed by: Bayron Riddle MD 06/14/2025 10:34 AM EDT
--- OUTSIDE RECORDS SUMMARY | 2025-06-14 09:20 | XMS_ITS | Encounter Summary ---
Author Organization [employer] Address [address] [place] [address] Care Team Providers Care Media Center Director School Name Role Phone Lluvia Guevara MD Primary Care Provide r Encounter Details Date Type Department Care Team (Late st Contact Info) Description 06/14/2025 9:20 AM EDT Office Visit [facility] [address] [place] [address] Non-recurrent acute suppurative otitis media of right ear with spontaneous rupture of tympanic membrane (Primary Dx); Bronchitis; Gastroenteritis Social History Tobacco Use Types Packs/Day Years Used Date Smoking Tobacco: Never Passive Smoke Exposure: Never Smokeless Tobacco: Never Alcohol Use Standard Drinks/Week Comments Never 0 (1 standard drink = 0.6 oz pur e alcohol) Depression Answer Date Recorded Patient Health Questionnaire-9 [...] Access Q2 Not on file 05/29/2025 Comments No Sex and Gender Information Value Date Recorded Sex Assigned at Female 08/10/2022 10:36 AM EDT Legal Sex Female 10:36 AM EDT Gender Identity Female 08/10/2022 10:36 AM EDT Sexual Orientation Straight 08/10/2022 10 :36 AM EDT documented as of this encounter Last Filed Vital Signs Vital Sign Reading Time Taken Comments Blood Pressure 125/79 06/14/2025 9:49 AM EDT Pulse 73 06/14/2025 9:49 AM EDT Temperature 37.1 C (98.7 F) 06/14/2025 9:49 AM EDT Respiratory Rate 20 06/14/2025 9:49 AM EDT Oxygen Saturation 99% 06/14/2025 9:49 AM EDT Inhaled Oxygen Concentration - - Weight 80.7 kg (178 lb) 06/14/2025 9:49 AM EDT Height 157.5 cm (5' 2 ) 06/14/2025 9:49 AM EDT Body Mass Index 32.56 06/14/2025 9:49 AM EDT documented in this encounter Plan of Treatment Not on file documented as of this encounter Procedures Procedure Name Priority Date/Time Associated Diagnosis Comments XR CHEST 2 VIEWS STAT 06/14/2025 9:41 AM EDT Bronchitis documented in this encounter Results * XR Chest 2 Views (06/14/2025 9:41 AM EDT) Anatomical Region Laterality Modality Chest Radiographic Pearl ging 06/14/2025 9:41 AM EDT Narrative 06/14/2025 10:36 AM EDT [address] [address] XRay Report Signed Patient: Mary Snyder MR#: [id number] : 1985 Acct:[id number] Age/Sex: 39 / F ADM Date: 06/14/25 Loc: [facility] Attending Dr: Kiki Dubois DO Ordering Physician: Kiki Dubois DO Date of Service: 06/14/25 Procedure(s): XR chest 2V Accession Number(s): [id number] cc: Kiki Dubois DO Reason for Exam: cough and fever x 3 weeks EXAMINATION: XR CHEST CLINICAL INFORMATION: cough and fever x 3 weeks COMPARISON: June 01, 2025 TECHNIQUE: 2 views of the chest were obtained. FINDINGS: No significant abnormality is noted involving the heart, lungs, mediastinum, bony thorax or soft tissues. XR/XR chest 2V IMPRESSION: No acute disease Electronically signed by: Bayron Riddle MD 06/14/2025 10:34 AM EDT Dictated By: Bayron Riddle MD Signed By: <Electronically signed by Bayron Riddle MD in OV> 06/14/25 1034 DD/ 0941 TD/TT: 06/14/25 1030 Front Office Secretary: Procedure Note Donotelianainterpreter, Image - 06/14/2025 [place] [address] XRay Report Signed Patient: Mary SnyderMR#: [id number] : 1985Acct:[id number] Age/Sex: 39 / FADM Date: 06/14/25 Loc: [facility] Attending Dr: Kiki Dubois DO Ordering Physician: Kiki Dubois DO Date of Service: 06/14/25 Procedure(s): XR chest 2V Accession Number(s): [id number] cc: Kiki Dubois DO Reason for Exam: cough and fever x 3 weeks EXAMINATION: XR CHEST CLINICAL INFORMATION: cough and fever x 3 weeks COMPARISON: June 01, 2025 TECHNIQUE: 2 views of the chest were obtained. FINDINGS: No significant abnormality is noted involving the heart, lungs, mediastinum, bony thorax or soft tissues. XR/XR chest 2V IMPRESSION: No acute disease Electronically signed by: Bayron Riddle MD 06/14/2025 10:34 AM EDT RP Dictated By: Bayron Riddle MD Signed By: <Electronically signed by Bayron Riddle MD in OV> 06/14/25 1034 DD/ 0941 TD/TT: 06/14/25 1030 Front Office Secretary: us Kiki Dubois DO IMG XR PROCEDURES Final Resu lt documented in this encounter Visit Diagnoses Diagnosis Non-recurrent acute suppurative otitis media of right ear with spontaneous rupture of tympanic membrane- Primary Bronchitis Bronchitis, not specified as acute or chronic Gastroenteritis Other and unspecified noninfectious gastroenteritis and colitis documented in this encounter Additional Health Concerns Assessment Noted Time PHQ-9 Depression Total Score: 14 024 8:42 AM EST documented as of this encounter Care Teams Media Center Director School Relationship Specialty Start Date End Date Lluvia Guevara MD [address] [place] [id number] PCP - General Family Medicine 11/20/19 documented as of this encounter
--- OUTSIDE RECORDS SUMMARY | 2025-06-14 11:40 | XMS_ITS | Encounter Summary ---
Author Organization [employer] Address [address] [place] [address] Care Team Providers Care Heeler Machine Name Role Phone Lluvia Guevara MD Primary Care Provide r Encounter Details Date Type Department Care Team (Latest Contact Info) Description 06/14/2025 Travel Social History Tobacco Use Types Packs/Day Years [...] AM EDT documented as of this encounter Plan of Treatment Not on file documented as of this encounter Visit Diagnoses Not on filedocumented in this encounter Additional Health Concerns Assessment Noted Time PHQ-9 Depression Total Score: 14 024 8:42 AM EST documented as of this encounter Care Teams Heeler Machine Relationship Specialty Start Date End Date Lluvia Guevara MD [address] [place] [address] PCP - General Family Medicine 11/20/19 documented as of this encounter
--- OUTSIDE RECORDS SUMMARY | 2025-06-14 11:40 | XMS_ITS | Encounter Summary ---
Author Organization [employer] Address [address] [place] [address] Care Team Providers Care Brazing Machine Feeder Name Role Phone Lluvia Guevara MD Primary Care Provide r Encounter Details Date Type Department Care Team (Late st Contact Info) Description 09/29/2024 Orders Only [facility] [address] [place] [address] Lluvia Guevara MD [address] [place] [address] Social History Tobacco Use Types Packs/Day Years [...] Internet Access Q1 I am not sure 07/28/2024 Internet Access Q2 I cannot afford it 07/28/2024 Comments Unknown Sex and Gender Information Value [...] documented as of this encounter Care Teams Brazing Machine Feeder Relationship Specialty Start Date End Date Lluvia Guevara MD [address] [place] [address] PCP - General Family Medicine 11/20/19 documented as of this encounter
--- OUTSIDE RECORDS SUMMARY | 2025-06-14 11:40 | XMS_ITS | Encounter Summary ---
Author Organization [employer] Address [address] [place] [address] Care Team Providers Care Votator Machine Operator Name Role Phone Lluvia Guevara MD Primary Care Provide r Reason for Visit * Reason Comments Med Refill Encounter Details Date Type Department Care Team ([facility] st Contact Info) Description 10/20/2024 Refill [facility] [address] [place] [address] Ladonna Luna FNP [address] [place] [address] Social History Tobacco Use Types Packs/Day Years [...] documented as of this encounter Care Teams Votator Machine Operator Relationship Specialty Start Date End Date Lluvia Guevara MD [address] [place] [id number] PCP - General Family Medicine 11/20/19 documented as of this encounter
--- OUTSIDE RECORDS SUMMARY | 2025-06-14 11:40 | XMS_ITS | Patient Health Record ---
Author Organization [facility] Address [address] [place] [address] Care Team Providers Care Service Rig Operator Name Role Phone Lluvia Robledo M.D. Primary Care Provider [place] Unavailable [phone] Reason For Referral No Information Plan Of Treatment No Information Insurance Providers Payer Name Payer Address Payer Phone Subscriber Number Group Number Insured Name Patient Relationship to Insured Coverage Start Date Coverage End Date MEDICAID OF [facility] [address] [place] [phone] [id number] SHARI DAVIS Self - patient is the insured
--- OUTSIDE RECORDS SUMMARY | 2025-06-14 11:40 | XMS_ITS | Clinical Summary ---
Author Organization [employer] Address [address] [facility] [address] [place] [address] Care Team Providers Care Hr Receptionist Name Role Phone Lluvia Guevara MD Primary Care Provide r Allergies No known active allergies Medications * This document contains information received from the source organization and may not represent a complete record from that organization. omeprazole (PriLOSEC) [address] capsuleIndicat ions:Epigastri c pain Take 1 capsule (40 mg) by mouth before breakfast. Do not crush or chew. 30 capsule 11 10/13/19 24 Active butalbital-dayday taminophen-caf feine 50-325-40 MG tabletIndicati ons:Migraine without aura, not refractory TAKE 1 TABLET BY MOUTH EVERY 4 HOURS NEEDED 15 tablet 1 10/19/19 25 Active sertraline (Zoloft) 100 MG tabletIndicati ons:Mixed anxiety and depressive disorder TAKE 1 TABLET BY MOUTH EVERY DAY 30 tablet 1 11/13/19 25 Active amitriptyline (Elavil) 25 MG tabletIndicati ons:Migraine without aura, not refractory TAKE 1 TABLET BY MOUTH EVERY DAY AT BEDTIME 30 tablet 1 11/13/19 25 Active FT Earwax Removal 6.5 % otic solution PLACE 5-10 DROPS INTO THE AFFECTED EAR(S) TWICE DAILY FOR 4 DAYS. DISCARD THE REMAINDER. 10/19/19 25 Active Cyanocobalamin (Vitamin B-12) 1000 MCG sublingual tablet DISSOLVE 1 TABLET UNDER THE TONGUE ONCE DAILY 10/19/19 25 Active docusate sodium (Colace) 100 MG capsule Take 1 capsule by mouth Once per day. 10/19/19 25 Active Ferrous Sulfate (iron) 325 (65 Fe) MG tablet Take 1 tablet by mouth Once per day. 10/19/19 Active ondansetron (Zofran) 4 MG tabletIndicati ons:Nausea and vomiting, unspecified vomiting type Take 1 tablet (4 mg) by mouth every 8 (eight) hours if needed for nausea or vomiting. 20 tablet 03/19/20 25 Active benzonatate (Tessalon Perles) 100 MG capsule Take 1 capsule (100 mg) by mouth if needed in the morning, at noon, and at bedtime for cough. Do not crush or chew. 30 capsule 06/14/20 25 026 Active fluticasone (Flonase) 50 MCG/ACT nasal spray Administer 2 sprays into each nostril Once per day. Shake gently. Before first use, prime pump. After use, clean tip and replace cap. 48 g 3 06/14/20 25 Active albuterol 108 (90 Base) MCG/ACT inhalerIndicat ions:Gastroent eritis Inhale 2 puffs every 4 (four) hours if needed for wheezing or shortness of breath. 18 g 1 06/14/20 25 026 Active predniSONE (Deltasone) 20 MG tablet Take 2 tablets (40 mg) by mouth Once per day for 5 days. 10 tablet 06/14/20 25 025 Active loratadine (Claritin) 10 MG tablet Take 1 tablet (10 mg) by mouth Once per day. 90 tablet 3 06/14/20 25 Active amoxicillin-cl avulanate (Augmentin) 875-125 MG tablet Take 1 tablet by mouth 2 times daily for 7 days. 14 tablet 06/14/20 25 Active ofloxacin (Floxin) 0.3 % otic solution Administer 10 drops into the right ear Once per day for 7 days. 10 mL 06/14/20 25 025 Active acetaminophen (Tylenol 8 Hour) 650 MG ER tablet Take 1 tablet (650 mg) by mouth every 8 (eight) hours if needed for mild pain or headaches. Do not crush, chew, or split. 40 tablet 1 06/14/20 25 025 Active ibuprofen 600 MG tablet Take 1 tablet (600 mg) by mouth every 6 (six) hours if needed for mild pain. 40 tablet 1 09/01/28 25 026 Active ondansetron (Zofran) 4 MG tabletIndicati ons:Migraine without aura, not refractory Take 1 tablet (4 mg) by mouth every 8 (eight) hours if needed for nausea or vomiting. 10 tablet 07/28/20 24 025 Discontinued(Re order (will not trigger notification to Pharmacy)) ibuprofen 600 MG tablet Take 1 tablet (600 mg) by mouth every 6 (six) hours if needed for mild pain. 30 tablet 1 01/12/20 025 Discontinued(Re order (will not trigger notification to Pharmacy)) clarithromycin (Biaxin) 500 MG tablet Take 1 tablet by mouth 2 times daily. 04/06/20 025 Discontinued(Th erapy completed) albuterol 108 (90 Base) MCG/ACT inhalerIndicat ions:Gastroent eritis Inhale 2 puffs every 6 (six) hours if needed for wheezing. 18 g 11 03/19/20 025 Discontinued(Re order (will not trigger notification to Pharmacy)) fluticasone (Flonase) 50 MCG/ACT nasal spray USE 2 SPRAYS IN EACH NOSTRIL EVERY DAY FOR RHINITIS 48 g 04/04/20 025 Discontinued(Re order (will not trigger notification to Pharmacy)) loratadine (Claritin) 10 MG tablet TAKE 1 TABLET BY MOUTH EVERY DAY NEEDED (RHINITIS) 90 tablet 1 04/04/20 025 Discontinued(Re order (will not trigger notification to Pharmacy)) ondansetron (Zofran) 4 MG tabletIndicati ons:Viral URI with cough Take 1 tablet (4 mg) by mouth every 8 (eight) hours if needed for nausea or vomiting for up to 7 days. 20 tablet 05/31/20 25 025 ibuprofen 600 MG tabletIndicati ons:Viral URI with cough Take 1 tablet (600 mg) by mouth every 6 (six) hours if needed for mild pain, fever or headaches for up to 7 days. 20 tablet 05/31/20 25 025 benzonatate (Tessalon Perles) 100 MG capsuleIndicat ions:Viral URI with cough Take 1 capsule (100 mg) by mouth if needed in the morning, at noon, and at bedtime for cough for up to 7 days. Do not crush or chew. 20 capsule 05/31/20 25 025 Discontinued(Re order (will not trigger notification to Pharmacy)) Active Problems Problem Noted Date Diagnosed Date Class 1 obesity with serious comorbidity and body mass index (BMI) of 31.0 to 31.9 in adult 03/16/2025 Encounter for preventive care 08/14/2024 Assessment & Plan (08/14/2024 4:22 PM EST): See HPI Food insecurity 07/28/2024 Assessment & Plan (07/28/2024 11:10 AM EDT): [facility] referral today Grief 06/23/2024 Assessment & Plan (08/15/2024 8:58 AM EST): During IBH Consult Mary presenting with depressed mood, hopelessness, irritable mood, loss of interests/pleasure , sense of isolation/loneliness , change in appetite or weight reduce appetite, changes in sleep difficulty falling asleep and difficulty staying asleep , psychomotor retardation, fatigue/loss of energy, difficulty concentrating, indecisiveness, intense yearning, distress, loneliness, emotional pain, and preoccupation with memories of the ; for a period of 18+ mo, for most or all symptoms in the context of and financial concern. Mary reported symptoms have been present over the last years and worsening when her dad and sister . Currently taking medication prescribed by PCP; pt reports being able to manage better with the medication. Different personal stressors are also overwhelming patient and causing more stress. clinician engaged patient with active/reflective listening. Reviewed and assessed for risk, current stressors and protective factors using open-ended questions. Provided information for [facility] with [facility] for sooner intake and OP therapy. Other fatigue 06/08/2024 Assessment & Plan (06/08/2024 4:47 PM EDT): Blood work ordered I will review results on next visit Recurrent major depressive disorder 02/09/2023 Assessment & Plan (08/15/2024 8:58 AM EST): During IBH Consult Mary presenting with depressed mood, hopelessness, irritable mood, loss of interests/pleasure , sense of isolation/loneliness , change in appetite or weight reduce appetite, changes in sleep difficulty falling asleep and difficulty staying asleep , psychomotor retardation, fatigue/loss of energy, difficulty concentrating, indecisiveness, intense yearning, distress, loneliness, emotional pain, and preoccupation with memories of the ; for a period of 18+ mo, for most or all symptoms in the context of and financial concern. Mary reported symptoms have been present over the last years and worsening when her dad and sister . Currently taking medication prescribed by PCP; pt reports being able to manage better with the medication. Different personal stressors are also overwhelming patient and causing more stress. clinician engaged patient with active/reflective listening. Reviewed and assessed for risk, current stressors and protective factors using open-ended questions. Provided information for [facility] with [facility] for sooner intake and OP therapy. Hematemesis with nausea 02/05/2023 Assessment & Plan (02/05/2023 1:32 PM EDT): Patient educated to avoid (spicy food, coffee, critics), no smoking, no NSAID's, eat heathy at the same time, elevate head of the bed I started patient on high dose PPI (pomeprazole 40mg) If vomiting with blood episode repeats, if weakness with palpitations, dizziness, change in mental status, she needs to go to seek medical attention immediately go to ED, call ambulance... GI referral STAT Epigastric pain 02/05/2023 Assessment & Plan (02/05/2023 1:33 PM EDT): See hematoemesis plan Encounter for screening and preventative care Assessment & Plan (02/05/2023 1:36 PM EDT): Refer to HPI PAP pending Other chest pain 02/05/2023 Assessment & Plan (02/05/2023 1:34 PM EDT): No pain right now If pain episode repeats go to ED Cardiology referral Palpitations 02/05/2023 Encounter for screening mamm ogram for malignant neoplasm of breast 02/05/2023 Anxiety 02/04/2023 Housing situation unstable 02/04/2023 Migraine without aura, not refractory 02/04/2023 Assessment & Plan (07/28/2024 11:09 AM EDT): I advise to avoid migraine triggers like red wine, chocolate, cheese, strong perfumes I discontinue sumatriptan I will start her on fioricept PRN I will go up on amitryptiline to 25mg daily Assessment & Plan (06/08/2024 4:46 PM EDT): I advise to avoid migraine triggers like red wine, chocolate, cheese, strong perfumes I will start her on amitriptyline and refilled her imitrex RTC 4 weeks televisit Mixed anxiety and depressive disorder 02/04/2023 Assessment & Plan (08/14/2024 4:23 PM EST): Counseling done Monalisa called today I will increase her sertraline to 100mg daily RTC 4 weeks televisit Assessment & Plan (07/28/2024 11:09 AM EDT): Counseling done N referral I will start her on sertraline 50mg daily Assessment & Plan (06/08/2024 4:46 PM EDT): Counseling done Monalisa called today Assessment & Plan (02/05/2023 1:34 PM EDT): Today was seen by CLEMENT I will start her on citalopram 20mg daily Continue to follow with therapist Resolved Problems Problem Noted Date Diagnosed Date Resolved Date Vaginal discharge 04/15/2023 03/16/2025 Nausea 04/15/2023 03/16/2025 Diarrhea 04/15/2023 03/16/2025 Unprotected sexual intercourse 04/15/2023 03/16/2025 Encounters Date Type Department Care Team Description 06/14/2025 9:20 AM EDT Office Visit [facility] [address] [address] Non-recurrent acute suppurative otitis media of right ear with spontaneous rupture of tympanic membrane (Primary Dx); Bronchitis; Gastroenteritis 06/14/2025 Travel 06/01/2025 10:20 AM EDT [facility] [address] [address] Len Cueto MD Viral URI with cough (Primary Dx); Otalgia of left ear 06/01/2025 Travel 05/31/2025 8:40 AM EDT [facility] [address] [address] Len Cueto MD Viral URI with cough (Primary Dx); Urinary frequency 05/31/2025 Travel 04/04/2025 Refill [facility] [address] [address] Kiki Dubois DO 03/28/[address] [address] Lluvia Guevara MD f/u call 03/19/2025 2:30 PM EDT Office Visit [address] [address] [facility] Gastroenteritis (Primary Dx); Dysuria; Nausea and vomiting, unspecified vomiting type; Blood in stool, ned 03/19/2025 Patient Outreach [address] [address] Lluvia Guevara MD 03/19/2025 Travel 03/19/[address] [address] Latisha Melchor, RETINAL SURGEON Follow-up 03/16/2025 9:40 AM EDT [facility] [address] [address] Miladis Gusman MD Sore throat (Primary Dx); Encounter for screening mammogram for malignant neoplasm of breast; Dietary counseling; Exercise counseling; Class 1 obesity with serious comorbidity and body mass index (BMI) of 31.0 to 31.9 in adult, unspecified obesity type; Left otitis media with effusion; Epigastric pain from Last 3 Months Immunizations Immunization Administration Dates Next Due Influenza injectable quadrivalent preservative f ree 07/17/2021 Influenza, seasonal, injectable, preservative fr ee 08/14/2024 Pfizer Covid-19 Vaccine 12+ 08/14/2024 Social History Tobacco Use Types Packs/Day Years Used Date Smoking Tobacco: Never Passive Smoke Exposure: Never Smokeless Tobacco: Never Tobacco Cessation:Counseling Given: Not Answered Alcohol Use Standard Drinks/Week Comments Never 0 [...] the past 12 months, has t he [employer], gas, oil or water [employer] threatened to shut off services in your [...] Orientation Straight 08/10/2022 10 :36 AM EDT Last Filed Vital Signs Vital Sign Reading [...] Mass Index 32.56 06/14/2025 9:49 AM EDT Plan of Treatment Health Maintenance Due Date Last Done Comments Disability Screening 1984 Alcohol/Substance Use Screening 1996 Family Planning (PISQ) 1999 HPV Vaccines (1 - 3-dose series) 1999 DTaP/Tdap/Td Vaccines (1 - Tdap) 2003 Hepatitis B Vaccines (1 of 3 - 19+ 3-dose series) 2003 Mammogram 2024 Cervical Cancer Screening 11/30/2024 HPV/Cotest 11/30/2024 11/30/2019, 11/30/2019 Pap Smear 11/30/2024 11/30/2019 Depression Monitoring 02/12/2025 08/15/2024, 024 Influenza Vaccine (#1) 2025 08/14/2024, 2020 SDOH Screening 07/28/2025 07/28/2024 Tobacco Screening 06/14/2026 06/14/2025 Lipid Panel 06/08/2029 06/08/2024, 01/10, 03/03/2021 Zoster Vaccines (1 of 2) 2034 RSV Patients and Patients Aged 60 years or older (1 - 1-dose 75+ series) 2059 HIV Screening Completed 06/08/2024, 07/0 03/2023, 04/03/2021, Additional history exists Hepatitis C Screening Completed 06/08/2024 , 2023, 04/15/2023, Additional history exists COVID-19 Vaccine Completed 08/14/2024, 06/17/2021 HIB Vaccines Aged Out No longer eligi ble based on patient's age to complete this topic Hepatitis A Vaccines Aged Out No long er eligible based on patient's age to complete this topic IPV Vaccines Aged Out No longer eligi ble based on patient's age to complete this topic Meningococcal B Vaccine Aged Out No l onger eligible based on patient's age to complete this topic Meningococcal Vaccine Aged Out No gloria faheem eligible based on patient's age to complete this topic Pneumococcal Vaccine: Pediatrics (0 to 5 Years) and At-Risk Patients (6 to 49) Years Aged Out No longer eligible based on patient's age to complete this topic RSV under 20 months Aged Out No longe r eligible based on patient's age to complete this topic Rotavirus Vaccines Aged Out No longer eligible based on patient's age to complete this topic Procedures Procedure Name Priority Date/Time Associated Diagnosis Comments XR CHEST 2 VIEWS STAT 06/14/2025 9:41 AM EDT Bronchitis POCT URINALYSIS DIPSTICK Routine 05/31/2025 9:07 AM EDT Urinary frequency POCT INFLUENZA B (ID NOW RAPID MOLECULAR) Routine 05/31/2025 9:07 AM EDT Viral URI with cough POCT INFLUENZA A (ID NOW RAPID MOLECULAR) Routine 05/31/2025 9:07 AM EDT Viral URI with cough POCT RAPID STREP A Routine 05/31/2025 9: 07 AM EDT Viral URI with cough POCT RAPID COVID ANTIGEN Routine 05/31/2025 9:07 AM EDT Viral URI with cough POCT URINALYSIS DIPSTICK Routine 03/19/2025 3:53 PM EDT Dysuria CULTURE, URINE, ROUTINE Routine 03/19/2025 3:30 PM EDT Dysuria TSH W/REFLEX TO FT4 Routine 03/16/2025 1 0:27 AM EDT Sore throat CBC WITH AUTO DIFFERENTIAL STAT 03/16/2025 10:27 AM EDT Sore throat POC MARTINS ID NOW STREP A Routine 03/16/2025 9:27 AM EDT Sore throat POCT RAPID COVID ANTIGEN Routine 03/16/2025 9:27 AM EDT Sore throat POCT INFLUENZA B (ID NOW RAPID MOLECULAR) Routine 03/16/2025 9:27 AM EDT Sore throat POCT INFLUENZA A (ID NOW RAPID MOLECULAR) Routine 03/16/2025 9:27 AM EDT Sore throat HEPATITIS PANEL, GENERAL Routine 06/08/2024 2:53 PM EDT Other fatigue HIV 1/2 ANTIGEN/ANTIBODY, FOURTH GENERATION W/RFL Routine 06/08/2024 2:53 PM EDT Other fatigue LIPID PANEL WITH REFLEX TO DIRECT LDL Routine 06/08/2024 2:53 PM EDT Other fatigue HM PAP/HPV Routine 11/30/2019 from Last 3 Months or Most Recently Relevant to Health Maintenance Results * XR Chest 2 Views (06/14/2025 9:41 AM EDT) Anatomical Region Laterality Modality Chest Radiographic Pearl ging 06/14/2025 9:41 AM EDT Narrative 06/14/2025 10:36 AM EDT [address] [address] XRay Report Signed Patient: Mary Snyder MR#: [id number] : 1985 Acct:[id number] Age/Sex: 39 / F ADM Date: 06/14/25 Loc: [facility] Attending Dr: Kiki Dubois DO Ordering Physician: Kiki Dubois DO Date of Service: 06/14/25 Procedure(s): XR chest 2V Accession Number(s): [id number] cc: Kiki Dubois DO Reason for Exam: [...] 06/14/25 1034 DD/ 0941 TD/TT: 06/14/25 1030 Case Managers: Procedure Note Donotuseinterpreter, Image - 06/14/[address] [address] XRay Report Signed Patient: Mary SnyderMR#: [id number] : 1985Acct:[id number] Age/Sex: 39 / FADM Date: 06/14/25 Loc: [facility] Attending Dr: Kiki Dubois DO Ordering Physician: Kiki Dubois DO Date of Service: 06/14/25 Procedure(s): XR chest 2V Accession Number(s): [id number] cc: Kiki Dubois DO Reason for Exam: [...] 06/14/25 1034 DD/ 0941 TD/TT: 06/14/25 1030 Case Managers: Kiki Dubois DO IMG XR PROCEDURES Final Resu lt * Influenza B (ID NOW Rapid Molecular) (05/31/2025 9:07 AM EDT) Only the most recent of2 resultswithin the time period is included. Influenza B Negative Negative, Indeterminate [facility] Swab 05/31/2025 9:07 AM EDT Len Cueto MD POINT OF CARE TEST ENTER/EDIT OR DERABLES Final Result Performing Organization Address [facility] Co de Phone Number [facility] [address] [place] [phone] * Influenza A (ID NOW Rapid Molecular) (05/31/2025 9:07 AM EDT) Only the most recent of2 resultswithin the time period is included. Influenza A Negative Negative, Indeterminate [facility] Swab 05/31/2025 9:07 AM EDT Len Cueto MD POINT OF CARE TEST ENTER/EDIT OR DERABLES Final Result Performing Organization Address [facility] Co de Phone Number [facility] [address] [place] [phone] * POCT Rapid COVID Ag (05/31/2025 9:07 AM EDT) Only the most recent of2 resultswithin the time period is included. Rapid COVID Ag Negative [facility] Swab 05/31/2025 9:07 AM EDT us Len Cueto MD POINT OF CARE TEST ENTER/EDIT OR DERABLES Final Result Performing Organization Address [facility]/ZIP Co de Phone Number [facility] [address] [place] [phone] * POCT rapid strep A manually resulted (05/31/2025 9:07 AM EDT) Rapid Strep A Screen Negative Negative, None Detected [facility] Swab 05/31/2025 9:07 AM EDT us Len Cueto MD POINT OF CARE TEST ENTER/EDIT OR DERABLES Final Result Performing Organization Address [facility] de Phone Number [facility] [address] [place] [phone] * POCT urinalysis dipstick manually resulted (05/31/2025 9:07 AM EDT) Only the most recent of2 resultswithin the time period is included. Color, UA Yellow Clarity, UA Clear Glucose, UA Few 15 Comment:100 mg/dL Bilirubin, UA Few 15 Comment:Small Ketones, UA Positive Comment:Trace Spec Grav, UA 1.030 Blood, UA Negative Negative, None Detected pH, UA 6.0 Protein, UA Few 15 Comment:100 mg/dL Urobilinogen, UA 2.0 Leukocytes, UA Negative Negative, Rare, Trace Nitrite, UA Negative Negative, None Detected Urine 05/31/2025 9:07 AM EDT us Len Cueto MD POINT OF CARE TEST ENTER/EDIT OR DERABLES Final Result * Culture, Urine, Routine (03/19/2025 3:30 PM EDT) Urine Urine specimen obtained by clean catch procedure / Unknown 03/19/2025 3:30 PM EDT 03/19/2025 5:46 PM EDT Comment:UACC Narrative [facility] - 03/21/2025 9:05 AM EDT Urine Culture Report Result Urine Culture 10,000 to 50,000 cfu/ml Urine Culture Mixed bacterial capri characteristic of Urine Culture urogenital contamination. Specimen Source: Urine clean catch [facility] LAB MICROBIOLOGY - GENERAL OR DERABLES Final Result Performing Organization Address City/[facility]/ZIP Co de Phone Number [facility] [address] [place] [phone] [phone] * TSH W/Reflex to FT4 (03/16/2025 10:27 AM EDT) TSH reflex Free T4 1.16 0.32 - 4.0 uIU/mL [facility] Blood Venous blood specimen / Unknown 03/16/2025 10:27 AM EDT 03/16/2025 1:21 PM EDT Miladis Gusman MD LAB BLOOD ORDERABLES Final Res ult Performing Organization Address City/[facility]/ZIP Co de Phone Number [facility] [address] [place] [phone] * CBC auto differential (03/16/2025 10:27 AM EDT) White Blood Count 8.7 4.8 - 10.8 X10*3/uL [facility] Red Blood Count 4.54 4.20 - 5.50 X10*6/uL [facility] Hemoglobin 13.1 12.0 - 16.0 g/dl [facility] Hematocrit 40.3 37.0 - 47.0 % [facility] Mean Corpuscular Volume 88.8 80.0 - 98.0 fL [facility] Mean Corpuscular Hemoglobin 28.9 27.0 - 33.0 pg [facility] Mean Corpuscular HGB Conc 32.5 31.0 - 35.0 g/dl [facility] Red Cell Distribution Width 12.5 11.0 - 16.0 % [facility] Platelet Count 206 160 - 400 X10*3/uL [facility] Mean Platelet Volume 12.3 9.4 - 12.3 fL [facility] Neutrophils Percent Auto 56.1 45 - 73 % [facility] Imm Gran Pct Auto 0.1 0.0 - 0.4 % [facility] Lymphocytes Percent Auto 33.4 20 - 40 % [facility] Monocytes Percent Auto 8.3 2 - 11 % [facility] Eosinophils Percent Auto 1.5 0 - 4 % [facility] Basophils Percent Auto 0.6 0 - 2 % [facility] NRBC Pct Auto 0.0 0.0 - 0.2 /100WBC [facility] Neutrophils Absolute Auto 4.9 2.0 - 8.3 x10*3/uL [facility] Imm Gran Abs Auto 0.01 0.00 - 0.03 X10*3/uL [facility] Lymphocytes Absolute Auto 2.9 1.2 - 4.9 X10*3/uL [facility] Monocytes Absolute Auto 0.7 0.1 - 1.2 X10*3/uL [facility] Eosinophils Absolute Auto 0.1 0.0 - 0.4 X10*3/uL [facility] Basophils Absolute Auto 0.1 0.0 - 0.2 X10*3/uL [facility] NRBC Abs Auto 0.000 0.0 - 0.012 X10*3/uL [facility] Blood Venous blood specimen / Unknown 03/16/2025 10:27 AM EDT 03/16/2025 11:13 AM EDT us Miladis Gusman MD LAB BLOOD ORDERABLES Final Res ult [facility] [address] [place] [phone] * POCT Rapid Strep A MARTINS ID NOW (03/16/2025 9:27 AM EDT) [facility] Rapid Strep A Screen Negative Negative, None Detected QC Media Lot # [id number] Lot# Expiration Date ,562 Swab 03/16/2025 9:27 AM EDT us Miladis Gusman MD POINT OF CARE TEST ENTER/EDIT ORDERABLES Final Result * (ABNORMAL) Lipid Panel with Reflex to Direct LDL (06/08/2024 2:53 PM EDT) Triglycerides 128 <150 mg/dL [facility] Comment:Desirable Triglyceri de: less than 150 mg/dLBorderline High Triglyceride 150-199 mg/dLHigh Triglyceride: 200-499 mg/dLVery High Triglyceride: greater than or equal to 5OO mg/dL Cholesterol 177 <200 mg/dL [facility] Comment:Desirable Cholestero l: less than 200 mg/dLBorderline High Cholesterol: 200-239 mg/dLHigh Cholesterol: greater than 239 mg/dL LDL Cholesterol Calculated 109(H) <100 mg/dL [facility] Comment:Desirable LDL: less than 100 mg/dLNear Optimal/Above Optimal LDL: 110- 129 mg/dLBorderline High LDL: 130-159 mg/dLHigh LDL: 160-189 mg/dLVery High LDL: greater than or equal to 190 mg/dL HDL Cholesterol 43 >40 mg/dL [facility] Comment:Desirable HDL: great er than 40 mg/dL Note: This HDL assay may give artificially low results in patients with liver disease. Blood 06/08/2024 2:53 PM EDT 06/08/2024 4:26 PM EDT us Lluvia Lara MD LAB BLOOD ORDERABLES Final Result [facility] [address], [place] [phone] * Hepatitis Panel, General (06/08/2024 2:53 PM EDT) Hepatitis A IgM Nonreactive Nonreactive [facility] Comment:IgM antibodies to SINHA V not detected; does not exclude earlyacute or recovered HAV infection. ~Hepatitis B Surface Antibody REACTIVE Nonreactive [facility] [facility] Comment:REACTIVE: > 11.99 mI U/mL Hepatitis B Core Antibody Nonreactive Nonreactive [facility] Hepatitis C Antibody Nonreactive Nonreactive [facility] Comment:Antibodies to HCV no t detected; does not exclude early acuteHCV infection. Hepatitis B Surface Ag Negative Negative [facility] Blood 06/08/2024 2:53 PM EDT 06/08/2024 4:26 PM EDT us Lluvia Lara MD LAB BLOOD ORDERABLES Final Result Performing Organization Address [facility]/ZIP Co de Phone Number [facility] [address] [place] [phone] HIV-1/2 Antigen and Antibodies, Fourth Generation, with Reflexes (06/08/2024 2:53 PM EDT) HIV AB/AG Nonreactive Nonreactive [facility] Comment:HIV-1 p24 Ag and/or HIV-1/HIV-2 Ab not detected.A test result that is nonreactive does not exclude thepossibility of exposure to or infection with HIV-1 and/orHIV-2. Nonreactive results in this assay for individualswith prior exposure to HIV-1 and/or HIV-2 may be due toantigen and antibody levels that are below the limit ofdetection of this assay.The [employer] HIV Ag/Ab Combo assay result andsupplemental assay results should be interpreted inconjunction with the patient's clinical presentation,history and other laboratory results. If the results areinconsistent with clinical evidence, additional testing issuggested to confirm the result. Blood Venous blood specimen / Unknown 06/08/2024 2:53 PM EDT 06/08/2024 4:26 PM EDT us Lluvia aLra MD LAB BLOOD ORDERABLES Final Result Performing Organization Address [facility]/ZIP Co de Phone Number [facility] [address] [place] [phone] PAP/HPV (11/30/2019) Pap Negative for intraephithelial lesion or malignancy Negative for intraephithelial lesion or malignancy, Epithelial cell abnormality HPV Not Detected Undetected, Indeterminate, Quantitative, Not Detected Historical Provider HEALTH MAINTENANCE Final Result from Last 3 Months or Most Recently Relevant to Health Maintenance [place] [address] [address] [place] [address] STANDARD Care Teams Hr Receptionist Relationship Specialty Start Date End Date Lluvia Guevara MD [address] [place] [phone] PCP - General Family Medicine 11/20/19
== END 2025-06-14 10:21 | disposition home or self-care (01) ==
LOC: HO.HHCX 10:20
PROVIDERS: Visit Provider Family Medicine
DX: J40 Bronchitis, not specified as acute or chronic (principal)
CPT/HCPCS: 71046

== ENCOUNTER → 2025-06-14 10:21 | Outpatient (BNV) | payer MEDICAID, SELFPAY | PROVIDERS: Visit Provider Radiology Diagnostic Radiology | DX: R05.9 Cough, unspecified (principal); R50.9 Fever, unspecified | CPT/HCPCS: 71046 ==

== ENCOUNTER 2025-08-08 10:56 | Outpatient (REF) | payer MEDICAID, SELFPAY ==
[2025-08-08 13:31] LABS: Hematocrit 40.5 % (37.0-47.0); Hemoglobin 13.0 g/dl (12.0-16.0); Mean Corpuscular HGB Conc 32.1 g/dl (31.0-35.0); Mean Corpuscular Hemoglobin 28.4 pg (27.0-33.0); Mean Corpuscular Volume 88.6 fL (80.0-98.0); NRBC Abs Auto 0.000 X10*3/uL (0.0-0.012); NRBC Pct Auto 0.0 /100WBC (0.0-0.2); Platelet Count 243 X10*3/uL (160-400); Red Blood Count 4.57 X10*6/uL (4.20-5.50); White Blood Count 9.0 X10*3/uL (4.8-10.8)
[2025-08-08 13:56] LABS: Alanine Aminotransferase 17 U/L (0-31); Albumin Level 4.5 g/dL (3.5-5.0); Alkaline Phosphatase 106 U/L (39-117); Anion Gap 12 (12-20); Aspartate Amino Transferase 24 U/L (5-31); Blood Urea Nitrogen 9 mg/dL (9-16); Calcium 9.5 mg/dL (8.4-10.2); Carbon Dioxide 25 mmol/L (22-29); Chloride 105 mmol/L (96-108); Cholesterol 228 mg/dL (<200); Estimated Glomerular Filt Rate > 60; HDL Cholesterol 47 mg/dL (>40); Potassium 4.1 mmol/L (3.3-5.1); Sodium 138 mmol/L (135-145); Total Protein 8.4 g/dL (6.5-8.0); Triglycerides 148 mg/dL (<150)
[2025-08-08 13:59] LABS: Free T4 (Free Thyroxine) 1.01 ng/dL (0.71-1.85); Thyroid Stimulating Hormone 1.28 uIU/mL (0.32-4.0)
[2025-08-09 04:25] LABS: HBS Num1 139.60 mIU/mL (0-7.99); HBsAGNum1 0.32 S/CO (0.00-0.99); HIV Num 1 0.27 S/CO (0.00-0.99); Hepatitis B Surface Antigen Negative (Negative); ~HepC Num1 0.13 S/CO (0.00-0.79); ~Hepatitis B Surface Antibody REACTIVE (Nonreactive); ~Hepatitis C Antibody Nonreactive (Nonreactive)
== END 2025-08-08 10:57 | disposition home or self-care (01) ==
LOC: HO.HHCL 10:56
PROVIDERS: PCP Family Medicine; Visit Provider Family Medicine
DX: Z11.4 Encounter for screening for human immunodeficiency virus [HIV] (principal); Z11.3 Encounter for screening for infections with a predominantly sexual mode of transmission; Z11.59 Encounter for screening for other viral diseases; K52.9 Noninfective gastroenteritis and colitis, unspecified
CPT/HCPCS: 36415; 80048; 80061; 80076; 82306; 83036; 84439; 84443; 85027; 86592; 86706; 86803; 87340; 87389

== ENCOUNTER 2025-10-04 12:04 | Emergency (ER) | payer MEDICAID, SELFPAY ==
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
[2025-10-04 12:09] VITALS: BP 102/56; BP 122/82; PULSE 110; PULSE 94; RESP 16; TEMP 36.8; O2SAT 97; O2SAT 99; BMI 26.0
--- OUTSIDE RECORDS SUMMARY | 2025-10-04 12:43 | XMS_ITS | Clinical Summary ---
Author Organization [facility] Address [address] [place] [address] Care Team Providers Care Software Implementation Project Manager Name Role Phone Lluvia Guevara MD Primary Care Provide r Allergies No known active allergies Medications * This document contains information received from the source organization and may not represent a complete record from that organization. FT Earwax Removal 6.5 % otic solution PLACE 5-10 DROPS INTO THE AFFECTED EAR(S) TWICE DAILY FOR 4 DAYS. DISCARD THE REMAINDER. 10/19/19 25 Active Cyanocobalamin (Vitamin B-12) 1000 MCG sublingual tablet DISSOLVE 1 TABLET UNDER THE TONGUE ONCE DAILY 10/19/19 25 Active Ferrous Sulfate (iron) 325 (65 Fe) MG tablet Take 1 tablet by mouth Once per day. 10/19/19 25 Active benzonatate (Tessalon Perles) 100 MG [...] cap. 48 g 3 06/14/20 25 Active loratadine (Claritin) 10 MG tablet Take 1 tablet (10 mg) by mouth Once per day. 90 tablet 3 06/14/20 25 Active ibuprofen 600 MG tablet Take 1 tablet (600 mg) by mouth every 6 (six) hours if needed for mild pain. 40 tablet 1 06/14/20 25 026 Active azelastine (Astelin) 0.1 % nasal spray Administer 2 sprays into each nostril if needed in the morning and at bedtime for rhinitis. Use in each nostril as directed 30 mL 07/09/20 25 026 Active ondansetron (Zofran) 4 MG tabletIndicatio ns:Nausea and vomiting, unspecified vomiting type Take 1 tablet (4 mg) by mouth every 8 (eight) hours if needed for nausea or vomiting. 20 tablet 08/08/20 25 026 Active sertraline (Zoloft) 100 MG tabletIndicatio ns:Mixed anxiety and depressive disorder Take 1 tablet (100 mg) by mouth Once per day. 30 tablet 3 5 2:59 PM EST 09/28/20 25 Active omeprazole (PriLOSEC) [address] capsuleIndicati ons:Epigastric pain Take 1 capsule (40 mg) by mouth before breakfast. Do not crush or chew. 30 capsule 11 5 2:59 PM EST 09/28/20 25 026 Active butalbital-acet aminophen-caffe ine 50-325-40 MG tabletIndicatio ns:Migraine without aura, not refractory Take 1 tablet by mouth every 4 (four) hours if needed for migraine. 15 tablet 1 5 2:59 PM EST 09/28/20 25 Active docusate sodium (Colace) 100 MG capsuleIndicati ons:Slow transit constipation Take 1 capsule (100 mg) by mouth Once per day. 60 capsule 1 5 2:59 PM EST 09/28/20 25 Active amitriptyline (Elavil) 25 MG tabletIndicatio ns:Migraine without aura, not refractory Take 1 tablet (25 mg) by mouth at bedtime. 30 tablet 1 5 2:59 PM EST 09/28/20 25 Active hydrOXYzine HCl (Atarax) 25 MG tabletIndicatio ns:Mixed anxiety and depressive disorder Take 1 tablet (25 mg) by mouth every 8 (eight) hours if needed for anxiety. 30 tablet 1 5 2:59 PM EST 09/28/20 25 026 Active omeprazole (PriLOSEC) [address] capsuleIndicati ons:Epigastric pain Take 1 capsule (40 mg) by mouth before breakfast. Do not crush or chew. 30 capsule 11 10/13/19 025 Discontinued(R eorder (will not trigger notification to Pharmacy)) butalbital-acet aminophen-caffe ine 50-325-40 MG tabletIndicatio ns:Migraine without aura, not refractory TAKE 1 TABLET BY MOUTH EVERY 4 HOURS NEEDED 15 tablet 1 10/19/19 025 Discontinued(R eorder (will not trigger notification to Pharmacy)) amitriptyline (Elavil) 25 MG tabletIndicatio ns:Migraine without aura, not refractory TAKE 1 TABLET BY MOUTH EVERY DAY AT BEDTIME 30 tablet 1 11/13/19 025 Discontinued(R eorder (will not trigger notification to Pharmacy)) docusate sodium (Colace) 100 MG capsule Take 1 capsule by mouth Once per day. 10/19/19 025 Discontinued(R eorder (will not trigger notification to Pharmacy)) albuterol 108 (90 Base) MCG/ACT inhalerIndicati ons:Gastroenter itis Inhale 2 puffs every 4 (four) hours if needed for wheezing or shortness of breath. 18 g 1 06/14/20 025 Discontinued(R eorder (will not trigger notification to Pharmacy)) sertraline (Zoloft) 100 MG tabletIndicatio ns:Mixed anxiety and depressive disorder Take 1 tablet (100 mg) by mouth Once per day. 30 tablet 1 07/09/20 025 Discontinued(R eorder (will not trigger notification to Pharmacy)) acetaminophen (Tylenol 8 Hour) 650 MG ER tablet Take 1 tablet (650 mg) by mouth every 8 (eight) hours if needed for mild pain or headaches. Do not crush, chew, or split. 40 tablet 1 08/08/20 albuterol 108 (90 Base) MCG/ACT inhaler Inhale 2 puffs every 4 (four) hours if needed for wheezing or shortness of breath. 18 g 1 09/28/20 025 Discontinued Active Problems Problem Noted Date Diagnosed Date Slow transit constipation 09/28/2025 Chronic gastritis 09/28/2025 Class 1 obesity with serious comorbidity and body mass index (BMI) of 31.0 to 31.9 in adult 03/16/2025 Encounter for preventive care 08/14/2024 Assessment & Plan (08/14/2024 4:22 PM EST): See HPI Food insecurity 07/28/2024 Assessment & Plan (07/28/2024 11:10 AM EDT): [facility] referral today Grief 06/23/2024 Assessment & Plan [...] factors using open-ended questions. Provided information for [facility] with [facility] for sooner intake and OP therapy. Other [...] factors using open-ended questions. Provided information for [facility] with N for sooner intake and [...] Plan (08/14/2024 4:23 PM EST): Counseling done N called today I will increase her sertraline to 100mg daily RTC 4 weeks televisit Assessment & Plan (07/28/2024 11:09 AM EDT): Counseling done [facility] referral I will start her on sertraline 50mg daily Assessment & Plan (06/08/2024 4:46 PM EDT): Counseling done N called today Assessment & Plan (02/05/2023 1:34 PM EDT): Today was seen by Monalisa I will start her on citalopram 20mg daily Continue to follow with therapist Resolved Problems Problem Noted Date Diagnosed Date Resolved Date Vaginal discharge 04/15/2023 03/16/2025 Nausea 04/15/2023 03/16/2025 Diarrhea 04/15/2023 03/16/2025 Unprotected sexual intercourse 04/15/2023 03/16/2025 Encounters Date Type Department Care Team Description 10/03/2025 Orders Only [facility] MEDICINE [address] [place] [address] Lluvia Guevara MD Breast pain (Primary Dx) 10/03/2025 Telephone [facility] [employer] [address] [place] [address] Lluvia Guevara MD 09/28/2025 1:30 PM EST Telemedicine [address] [address] Lluvia Guevara MD Mixed anxiety and depressive disorder (Primary Dx); Epigastric pain; Migraine without aura, not refractory; Slow transit constipation; Encounter for screening mammogram for malignant neoplasm of breast; Chronic gastritis, presence of bleeding unspecified, unspecified gastritis type 09/28/2025 Travel 09/24/2025 Travel 09/24/[address] [address] Lluvia Guevara MD Appointment Request 09/21/2025 Travel 09/03/[address] [address] Lluvia Guevara MD No Show 08/31/[address] [address] Lluvia Guevara MD chart prep 08/27/2025 Patient Outreach [address] [address] Lluvia Guevara MD Pre-visit Planning ((Unable to reach for PVP screening, LVM) to be completed in office ) 08/19/2025 Results Follow-Up [address] [address] Kiki Dubois DO POCT Rapid Covid-19 BinaxNOW, POCT Rapid Influenza A MARTINS ID NOW, POCT Rapid Influenza B MARTINS ID NOW, Additional followed-up results: 14 08/08/2025 10:00 AM EDT Office Visit [facility] WALK-IN [address] [address] Kiki Dubois DO Acute gastroenteritis (Primary Dx); Screening examination for STI; Nausea and vomiting, unspecified vomiting type; Sore throat 08/08/2025 Travel 07/09/2025 9:40 AM EDT Office Visit [facility] [address] [address] Yazan Adame MD Rash (Primary Dx); Influenza-like symptoms; Mixed anxiety and depressive disorder 07/09/2025 Travel from Last 3 Months Immunizations Immunization Administration [...] Sign Reading Time Taken Comments Blood Pressure 111/76 08/08/2025 9:56 AM EDT Pulse 76 08/08/2025 9:56 AM EDT Temperature 37.1 C (98.7 F) 08/08/2025 9:56 AM EDT Respiratory Rate 20 08/08/2025 9:56 AM EDT Oxygen Saturation 97% 08/08/2025 9:56 AM EDT Inhaled Oxygen Concentration - - Weight 82.4 kg (181 lb 9.6 oz) 07/09/2025 9:29 A M EDT Height 170.2 cm (5' 7 ) 08/08/2025 9:56 AM EDT Body Mass Index 33.22 06/14/2025 9:49 AM EDT Plan of Treatment Upcoming Encounters Date Type Department Care Team (Late st Contact Info) Description 11/05/2025 10:15 AM EST Office Visit [facility] MEDICINE [address] [place] [address] Lluvia Guevara MD [address] [place] [address] Health Maintenance Due Date Last Done Comments Disability Screening 1984 Alcohol/Substance Use Screening 1996 Family Planning (PISQ) 1999 HPV Vaccines (1 - 3-dose series) 1999 DTaP/Tdap/Td Vaccines (1 - Tdap) 2003 Hepatitis B Vaccines (1 of 3 - 19+ 3-dose series) 2003 Mammogram 2024 Cervical Cancer Screening 11/30/2024 HPV/Cotest 11/30/2024 11/30/2019, 11/30/2019 Pap Smear 11/30/2024 11/30/2019 Depression Monitoring 02/12/2025 08/15/2024, 024 COVID-19 Vaccine ( - season) 2025 08/14/2024, 06/17/2021 Influenza Vaccine (#1) 2025 08/14/2024, 2020 SDOH Screening 07/28/2025 07/28/2024 Tobacco Screening 08/08/2026 08/08/2025 Lipid Panel 08/08/2030 08/08/2025, 05/12, 02/05/2023, Additional history exists Zoster Vaccines (1 of 2) 2034 RSV Patients and Patients Aged 60 years or older (1 - 1-dose 75+ series) 2059 HIV Screening Completed 08/08/2025, 05/12, 04/15/2023, Additional history exists Hepatitis C Screening Completed 08/08/2025 , 06/08/2024, 2023, Additional history exists HIB Vaccines Aged Out No longer eligi [...] Procedure Name Priority Date/Time Associated Diagnosis Comments HEPATITIS B SURFACE ANTIBODY, QUALITATIVE Routine 08/08/2025 11:16 AM EDT Acute gastroenteritis Screening examination for STI RPR (MONITOR) W/REFL TITER Routine 08/08/2025 11:16 AM EDT Acute gastroenteritis Screening examination for STI HEPATITIS C AB W/REFL TO HCV RNA, QN, PCR Routine 08/08/2025 11:16 AM EDT Acute gastroenteritis Screening examination for STI HIV 1/2 ANTIGEN/ANTIBODY, FOURTH GENERATION W/RFL Routine 08/08/2025 11:16 AM EDT Acute gastroenteritis Screening examination for STI HEPATITIS B SURFACE ANTIGEN, EIA Routine 08/08/2025 11:16 AM EDT Acute gastroenteritis Screening examination for STI BASIC METABOLIC PANEL Routine 08/08/2025 11:16 AM EDT Acute gastroenteritis Screening examination for STI CBC Routine 08/08/2025 11:16 AM EDT Acute gastroenteritis Screening examination for STI HEMOGLOBIN A1C Routine 08/08/2025 11:16 AM EDT Acute gastroenteritis Screening examination for STI HEPATIC FUNCTION PANEL Routine 08/08/2025 11:16 AM EDT Acute gastroenteritis Screening examination for STI VITAMIN D,25-OH,TOTAL,IA Routine 08/08/2025 11:16 AM EDT Acute gastroenteritis Screening examination for STI TSH Routine 08/08/2025 11:16 AM EDT Acute gastroenteritis Screening examination for STI LIPID PANEL, STANDARD Routine 08/08/2025 11:16 AM EDT Acute gastroenteritis Screening examination for STI T4, FREE Routine 08/08/2025 11:16 AM EDT Acute gastroenteritis Screening examination for STI POC MARTINS ID NOW STREP A Routine 08/08/2025 11:08 AM EDT Sore throat POCT INFLUENZA B (ID NOW RAPID MOLECULAR) Routine 08/08/2025 10:55 AM EDT Acute gastroenteritis POCT INFLUENZA A (ID NOW RAPID MOLECULAR) Routine 08/08/2025 10:55 AM EDT Acute gastroenteritis POCT RAPID COVID ANTIGEN Routine 08/08/2025 10:07 AM EDT Acute gastroenteritis POCT INFLUENZA B (ID NOW RAPID MOLECULAR) Routine 07/09/2025 10:28 AM EDT Influenza-like symptoms POCT INFLUENZA A (ID NOW RAPID MOLECULAR) Routine 07/09/2025 10:28 AM EDT Influenza-like symptoms POCT RAPID STREP A Routine 07/09/2025 10 :28 AM EDT Influenza-like symptoms POCT RAPID COVID ANTIGEN Routine 07/09/2025 10:28 AM EDT Influenza-like symptoms HM PAP/HPV Routine 11/30/2019 from Last 3 Months or Most Recently Relevant to Health Maintenance Results * Vitamin D, 25-Hydroxy, Total, Immunoassay (08/08/2025 11:16 AM EDT) Vitamin D 25-OH Total 43.8 >30 ng/mL [facility] Comment: Health Based Reference Values*< 20 ng/mL [id number] ng/mL Insufficient> 30 ng/mL Sufficient*Tereza MALDONADO. N Engl J Med. 2007;357:266-280There is no well-established upper level of normal vitamin Dlevels. Some laboratories use 50 ng/mL as an upper limit ofnormal. However, toxicity is patient-dependent and may occurat any level. Careful correlation with the patient'spresentation is necessary and, if there is concern forvitamin D toxicity, treatment should be consideredirrespective of the serum level.Care must be taken in interpreting Vitamin D results fromdifferent laboratories and methodologies. Published datademonstrated that results from patients undergoinghemodialysis may show a negative bias when tested withvarious automated 25-OH vitamin D assays when compared toLC-MS/MS.When testing samples from patients whose predominant form ofVitamin D is Vitamin D2, such as patients receiving VitaminD2 supplementation, results that are subtherapeutic shouldbe confirmed with another method such as LC-MS/MS. Blood Venous blood specimen / Unknown 08/08/2025 11:16 AM EDT 08/08/2025 1:09 PM EDT Kiki Dubois DO LAB BLOOD ORDERABLES Final R esult Performing Organization Address [facility] Co de Phone Number [facility] [address] [place] [address] [phone] * Hepatitis C Antibody with Reflex to HCV, RNA, Quantitative, Real-Time PCR (08/08/2025 11:16 AM EDT) Hepatitis C Antibody Nonreactive Nonreactive [facility] Comment:Antibodies to HCV no t detected; does not exclude early acuteHCV infection. Blood Venous blood specimen / Unknown 08/08/2025 11:16 AM EDT 08/08/2025 1:09 PM EDT Kiki Dubois DO LAB BLOOD ORDERABLES Final R esult Performing Organization Address [facility] Co de Phone Number [facility] [address] [place] [phone] * Hepatitis B surface antigen, EIA (08/08/2025 11:16 AM EDT) Hepatitis B Surface Ag Negative Negative [facility] Blood Venous blood specimen / Unknown 08/08/2025 11:16 AM EDT 08/08/2025 1:09 PM EDT Kiki Dubois DO LAB BLOOD ORDERABLES Final R esult Performing Organization Address [facility] Co de Phone Number [facility] [address] [place] [phone] * RPR (Monitor) with Reflex to??Titer (08/08/2025 11:16 AM EDT) RPR (Monitor) w/Refl Titer NON-REACTI VE NON-REACT NARCISA [facility] Comment:THIS TEST WAS PERFOR MED AT:[facility] [place] [phone] KELLOGG MD Rapid Plasma Reagin Ab Titer TNP [facility] Blood Venous blood specimen / Unknown 08/08/2025 11:16 AM EDT 08/08/2025 1:09 PM EDT Kiki Dubois DO LAB BLOOD ORDERABLES Final R esult [facility] [address] [place] [phone] * HIV-1/2 Antigen and Antibodies, Fourth Generation, with Reflexes (08/08/2025 11:16 AM EDT) HIV AB/AG Nonreactive Nonreactive [facility] Comment:HIV-1 p24 Ag and/or HIV-1/HIV-2 Ab not detected.A test result that is nonreactive does not exclude thepossibility of exposure to or infection with HIV-1 and/orHIV-2. Nonreactive results in this assay for individualswith prior exposure to HIV-1 and/or HIV-2 may be due toantigen and antibody levels that are below the limit ofdetection of this assay.The McPhy HIV Ag/Ab Combo assay result andsupplemental assay results should be interpreted inconjunction with the patient's clinical presentation,history and other laboratory results. If the results areinconsistent with clinical evidence, additional testing issuggested to confirm the result. Blood Venous blood specimen / Unknown 08/08/2025 11:16 AM EDT 08/08/2025 1:09 PM EDT Kiki Silvino DO LAB BLOOD ORDERABLES Final R esult [facility] [address] [place] [phone] * Hepatitis B Surface Antibody, Qualitative (08/08/2025 11:16 AM EDT) ~Hepatitis B Surface Antibody REACTIVE Nonreactive [facility] Comment:REACTIVE: > 11.99 mI U/mL Blood Venous blood specimen / Unknown 08/08/2025 11:16 AM EDT 08/08/2025 1:09 PM EDT us Kiki Dubois DO LAB BLOOD ORDERABLES Final R esult Performing Organization Address [facility]/ZIP Co de Phone Number [facility] [address] [place] [phone] * (ABNORMAL) CBC (08/08/2025 11:16 AM EDT) White Blood Count 9.0 4.8 - 10.8 X10*3/uL [facility] Red Blood Count 4.57 4.20 - 5.50 X10*6/uL [facility] Hemoglobin 13.0 12.0 - 16.0 g/dl [facility] Hematocrit 40.5 37.0 - 47.0 % [facility] Mean Corpuscular Volume 88.6 80.0 - 98.0 fL [facility] Mean Corpuscular Hemoglobin 28.4 27.0 - 33.0 pg [facility] Mean Corpuscular HGB Conc 32.1 31.0 - 35.0 g/dl [facility] Red Cell Distribution Width 12.2 11.0 - 16.0 % [facility] Platelet Count 243 160 - 400 X10*3/uL [facility] Mean Platelet Volume 12.7(H) 9.4 - 12.3 fL [facility] NRBC Pct Auto 0.0 0.0 - 0.2 /100WBC [facility] NRBC Abs Auto 0.000 0.0 - 0.012 X10*3/uL [facility] Blood Venous blood specimen / Unknown 08/08/2025 11:16 AM EDT 08/08/2025 1:09 PM EDT us Kiki Dubois DO LAB BLOOD ORDERABLES Final R esult Performing Organization Address [facility]/ZIP Co de Phone Number [facility] [address] [place] [phone] * TSH (08/08/2025 11:16 AM EDT) Thyroid Stimulating Hormone 1.28 0.32 - 4.0 uIU/mL [facility] Comment:TSH 3rd Generation ( [facility]) Blood Venous blood specimen / Unknown 08/08/2025 11:16 AM EDT 08/08/2025 1:09 PM EDT Kiki Silvino LAB BLOOD ORDERABLES Final R esult Performing Organization Address [facility]/ZIP Co de Phone Number [facility] [address] [place] [phone] * T4, Free (08/08/2025 11:16 AM EDT) Pathologist [facility] Free T4 (Free Thyroxine) 1.01 0.71 - 1.85 ng/dL [facility] Blood Venous blood specimen / Unknown 08/08/2025 11:16 AM EDT 08/08/2025 1:09 PM EDT Kiki Silvino LAB BLOOD ORDERABLES Final R esult Performing Organization Address [facility] Co de Phone Number [facility] [address] [place] [phone] * Hemoglobin A1c (08/08/2025 11:16 AM EDT) Hemoglobin A1c 5.6 <6.0 % [facility] Comment:Hemoglobin A1C Refer ence Range Adults: 4.8 - 6.0 % Non diabetic: < 6.0 % Goal: < 7.0 %Additional Action Suggested: > 8.0 %Note: Hemoglobin A1c results are invalid for patients with abnormal amounts of HbF. Blood transfusions may impact the HbA1c concentration in the patient sample. Estimated Average Glucose 114 mg/dL [facility] Comment:eAG = Estimated ave rage glucose which is %A1C expressed asaverage glucose, using the formula of the M5O-VfttyxbXxseuoj Glucose study (ADAG), Diabetes Care, Vol.31,#8,May. 2007 Blood Venous blood specimen / Unknown 08/08/2025 11:16 AM EDT 08/08/2025 1:09 PM EDT Kiki Dubois DO LAB BLOOD ORDERABLES Final R esult Performing Organization Address [facility]/ZIP Co de Phone Number [facility] [address] [place] [phone] * (ABNORMAL) Hepatic Function Panel (08/08/2025 11:16 AM EDT) Bilirubin, Total 0.5 0.0 - 1.0 mg/dL [facility] Bilirubin, Direct 0.2 0.0 - 0.5 mg/dL [facility] Aspartate Amino Transferase 24 5 - 31 U/L [facility] Alanine Aminotransferase 17 0 - 31 U/L [facility] Total Protein 8.4(H) 6.5 - 8.0 g/dL [facility] Albumin Level 4.5 3.5 - 5.0 g/dL [facility] Alkaline Phosphatase 106 39 - 117 U/L [facility] Blood Venous blood specimen / Unknown 08/08/2025 11:16 AM EDT 08/08/2025 1:09 PM EDT Kiki Dubois DO LAB BLOOD ORDERABLES Final R esult Performing Organization Address [facility]/ZIP Co de Phone Number [facility] [address] [place] [phone] * (ABNORMAL) Lipid Panel, Standard (08/08/2025 11:16 AM EDT) Triglycerides 148 <150 mg/dL [facility] Comment:Desirable Triglyceri de: less than 150 mg/dLBorderline High Triglyceride 150-199 mg/dLHigh Triglyceride: 200-499 mg/dLVery High Triglyceride: greater than or equal to 5OO mg/dL Cholesterol 228(H) <200 mg/dL [facility] Comment:Desirable Cholestero l: less than 200 mg/dLBorderline High Cholesterol: 200-239 mg/dLHigh Cholesterol: greater than 239 mg/dL LDL Cholesterol Calculated 152(H) <100 mg/dL [facility] Comment:Desirable LDL: less than 100 mg/dLNear Optimal/Above Optimal LDL: 110- 129 mg/dLBorderline High LDL: 130-159 mg/dLHigh LDL: 160-189 mg/dLVery High LDL: greater than or equal to 190 mg/dL HDL Cholesterol 47 >40 mg/dL [facility] Comment:Desirable HDL: great er than 40 mg/dL Note: This HDL assay may give artificially low results in patients with liver disease. Blood Venous blood specimen / Unknown 08/08/2025 11:16 AM EDT 08/08/2025 1:09 PM EDT us Kiki Dubois DO LAB BLOOD ORDERABLES Final R esult [facility] [address] [place] [phone] * Basic Metabolic Panel (08/08/2025 11:16 AM EDT) Sodium 138 135 - 145 mmol/L [facility] Potassium 4.1 3.3 - 5.1 mmol/L [facility] Chloride 105 96 - 108 mmol/L [facility] Carbon Dioxide 25 22 - 29 mmol/L [facility] Anion Gap 12 12 - 20 [facility] Urea Nitrogen (BUN) 9 9 - 16 mg/dL [facility] Creatinine, Serum 0.74 0.5 - 1.4 mg/dL [facility] Estimated Glomerular Filt Rate >60 [facility] Comment:Chronic Kidney Disea se: Estimated GFR < 60 mL/min/[id number] Kidney Disease: Estimated GFR < 15 mL/min/1.73m2 Glucose 89 60 - 115 mg/dL [facility] Calcium 9.5 8.4 - 10.2 mg/dL [facility] Blood Venous blood specimen / Unknown 08/08/2025 11:16 AM EDT 08/08/2025 1:09 PM EDT us Kiki Dubois DO LAB BLOOD ORDERABLES Final R esult Performing Organization Address [facility] Co de Phone Number [facility] [address] [place] [phone] * POCT Rapid Strep A MARTINS ID NOW (08/08/2025 11:08 AM EDT) [facility] Rapid Strep A Screen Negative Negative, None Detected QC Media Lot # [id number] Lot# Expiration Date Swab 08/08/2025 11:0 8 AM EDT us Kiki Dubois DO POINT OF CARE TEST ENTER/SIMON T ORDERABLES Final Result * POCT Rapid Influenza B MARTINS ID NOW (08/08/2025 10:55 AM EDT) Only the most recent of2 resultswithin the time period is included. [facility] Influenza B Negative Negative, Indeterminate [facility] Swab 08/08/2025 10:5 5 AM EDT us Kiki Dubois DO POINT OF CARE TEST ENTER/SIMON T ORDERABLES Final Result Performing Organization Address [facility] Co de Phone Number [facility] [address] [place] [phone] * POCT Rapid Influenza A MARTINS ID NOW (08/08/2025 10:55 AM EDT) Only the most recent of2 resultswithin the time period is included. [facility] Influenza A Negative Negative, Indeterminate [facility] Swab 08/08/2025 10:5 5 AM EDT us Kiki Dubois DO POINT OF CARE TEST ENTER/SIMON T ORDERABLES Final Result Performing Organization Address [facility] Co de Phone Number [facility] [address] [place] [phone] [phone] * POCT Rapid Covid-19 BinaxNOW (08/08/2025 10:07 AM EDT) Only the most recent of2 resultswithin the time period is included. Rapid COVID Ag Negative QC Media Lot # [id number] Lot# Expiration Date [id number] Swab 08/08/2025 10:0 7 AM EDT Kiki Dubois DO POINT OF CARE TEST ENTER/SIMON T ORDERABLES Final Result * POCT rapid strep A manually resulted (07/09/2025 10:28 AM EDT) Rapid Strep A Screen Negative Negative, None Detected [facility] Swab 07/09/2025 10:2 8 AM EDT Yazan Adame MD POINT OF CARE TEST ENTER/EDIT OR DERABLES Final Result Performing Organization Address [facility] Co de Phone Number [facility] [address] [place] [phone] * HM PAP/HPV (11/30/2019) Pap Negative for intraephithelial lesion or malignancy Negative for intraephithelial lesion or malignancy, Epithelial cell abnormality HPV Not Detected Undetected, Indeterminate, Quantitative, Not Detected Angelica Provider HEALTH MAINTENANCE Final Result from Last 3 Months or Most Recently Relevant to Health Maintenance Insurance [facility] [email or web address] Care Teams Software Implementation Project Manager Relationship Specialty Start Date End Date Lluvia Guevara MD [address] [place] [phone] PCP - General Family Medicine 11/20/19
--- OUTSIDE RECORDS SUMMARY | 2025-10-04 12:43 | XMS_ITS | Encounter Summary ---
Author Organization [employer] Address [address] [facility] 7[address] [place] [address] Care Team Providers Care Director Project Management Name Role Phone Lluvia Guevara MD Primary Care Provide r Encounter Details Date Type Department Care Team ([facility] st Contact Info) Description 10/03/2025 Telephone Stage I Diagnostics Information Management [address] [place] [address] Lluvia Guevara MD [address] [place] [address] Social History Tobacco Use Types Packs/Day Years [...] AM EDT documented as of this encounter Miscellaneous Notes * Telephone Encounter - Antonio Enriquez - 10/03/2025 2:16 PM EST [facility] at [facility] when calling the patient to schedule Screening Mammo patient stated that she is expressing that she has pain on both breast and has felt a lump on her breasts as well. Patient states that she has discovered the lumps about 3 months ago. [facility] is requesting order to be update to Diagnostic imaging. Please review and advise! documented in this encounter Plan of Treatment Upcoming Encounters Date Type Department Care Team (Late st Contact Info) Description 11/05/2025 10:15 AM EST Office Visit [facility] [address] [place] [address] Lluvia Guevara MD [address] [place] [address] documented as of this encounter Visit Diagnoses Not on filedocumented in this encounter Additional Health Concerns Assessment Noted Time PHQ-9 Depression Total Score: 14 024 8:42 AM EST documented as of this encounter Care Teams Director Project Management Relationship Specialty Start Date End Date Lluvia Guevara MD [address] [place] [address] PCP - General Family Medicine 11/20/19 documented as of this encounter
--- OUTSIDE RECORDS SUMMARY | 2025-10-04 12:43 | XMS_ITS | Encounter Summary ---
Author Organization [employer] Address [address] [facility] [address] [place] [address] Care Team Providers Care Plug Making Operator Name Role Phone Lluvia Guevara MD Primary Care Provide r Reason for Referral * Imaging (Routine) - Pending Review Specialty Diagnoses / Procedures Referred By Nela smith Referred To Contact Radiology Diagnoses Breast pain Procedures BI Mammogram Diagnostic Tomosynthesis Bilateral Lluvia Guevara MD [address] [place] [phone] Phone: tel: fax: Referral ID Status Reason Start Date Expiration Date V isits Requested Visits Authorized [id number] Pending Review 10/03/2025 10/03/2026 1 1 Encounter Details Date Type Department Care Team ([facility] st Contact Info) Description 10/03/2025 Orders Only [facility] MEDICINE [address] [place] [phone] Lluvia Guevara MD [address] [place], [place] [phone] Breast pain (Primary Dx) Social History Tobacco Use Types Packs/Day Years [...] as of this encounter Plan of Treatment Upcoming Encounters Date Type Department Care Team (Late st Contact Info) Description 11/05/2025 10:15 AM EST Office Visit [facility] [address] [place] [address] Lluvia Guevara MD [address] [place] [address] Scheduled Orders Name Type Priority Associated Diagnoses Orde r Schedule BI Mammogram Diagnostic Tomosynthesis Bilateral Imaging Routine Breast pain Expected: 10/03/2025, Expires: 12/04/2026 documented as of this encounter Visit Diagnoses Diagnosis Breast pain- Primary Mastodynia documented in this encounter Additional Health Concerns Assessment Noted Time PHQ-9 Depression Total Score: 14 024 8:42 AM EST documented as of this encounter Care Teams Plug Making Operator Relationship Specialty Start Date End Date Lluvia Guevara MD [address] [place] [address] PCP - General Family Medicine 11/20/19 documented as of this encounter
--- OUTSIDE RECORDS SUMMARY | 2025-10-04 12:43 | XMS_ITS | Encounter Summary ---
Author Organization [employer] Address [address] [facility] [address] [place] [address] Care Team Providers Care C.O.D. Biller Name Role Phone Lluvia Guevara MD Primary Care Provide r Encounter Details Date Type Department Care Team (Late st Contact Info) Description 09/29/2024 Orders Only [facility] MED[facility] [address] [place] [address] Lluvia Guevara MD [address] [place] [address] Social History Tobacco Use Types Packs/Day Years [...] Description 11/05/2025 10:15 AM EST Office Visit [facility] [address] [place] [address] Lluvai Guevara MD [address] [place] [address] documented as of this encounter Visit Diagnoses Not on filedocumented in this encounter Additional Health Concerns Assessment Noted Time PHQ-9 Depression Total Score: 14 024 8:42 AM EST documented as of this encounter Care Teams C.O.D. Biller Relationship Specialty Start Date End Date Lluvia Guevara MD [address] [place] [address] PCP - General Family Medicine 11/20/19 documented as of this encounter
--- OUTSIDE RECORDS SUMMARY | 2025-10-04 12:43 | XMS_ITS | Encounter Summary ---
Author Organization [employer] Address [address] [facility] [address] [place] [address] Care Team Providers Care Fuse Cutter Name Role Phone Lluvia Guevara MD Primary Care Provide r Reason for Visit * Reason Comments Med Refill Encounter Details Date Type Department Care Team ([facility] st Contact Info) Description 10/20/2024 Refill [facility] [address] [place] [address] Ladonna Luna FNP [address] [place] [address] Social History Tobacco Use Types Packs/Day Years [...] Description 11/05/2025 10:15 AM EST Office Visit [facility] [address] [place] [address] Lluvia Guevara MD [address] [place] [address] documented as of this encounter Visit Diagnoses Not on filedocumented in this encounter Additional Health Concerns Assessment Noted Time PHQ-9 Depression Total Score: 14 024 8:42 AM EST documented as of this encounter Care Teams Fuse Cutter Relationship Specialty Start Date End Date Lluvia Guevara MD [address] [place] [phone] PCP - General Family Medicine 11/20/19 documented as of this encounter
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
[2025-10-04 18:10] VITALS: BP 111/75; PULSE 80; RESP 15; TEMP 36.6; O2SAT 99
== END 2025-10-04 18:28 | disposition home or self-care (01) ==
PROVIDERS: Emergency Provider Emergency Medicine; PCP Internal Medicine
DX: S06.0X0A Concussion without loss of consciousness, initial encounter (principal); H70.91 Unspecified mastoiditis, right ear; R51.9 Headache, unspecified; R11.0 Nausea; Y04.2XXA Assault by strike against or bumped into by another person, initial encounter; Y93.9 Activity, unspecified; Y92.9 Unspecified place or not applicable; Y99.8 Other external cause status; Z79.899 Other long term (current) drug therapy
CPT/HCPCS: 70450; 99284

== ENCOUNTER → 2025-10-04 13:09 | Outpatient (BNV) | payer MEDICAID, SELFPAY | PROVIDERS: Emergency Provider Emergency Medicine; PCP Internal Medicine; Visit Provider Radiology Diagnostic Radiology | DX: S06.9X9A Unspecified intracranial injury with loss of consciousness of unspecified duration, initial encounter (principal); Y04.8XXA Assault by other bodily force, initial encounter | CPT/HCPCS: 70450 ==